=== PATIENT | female | born 1950 | race Caucasian/White ===

== ENCOUNTER → 2017-12-18 08:03 | Outpatient (CLI) | payer MEDICARE, OTHER, SELFPAY ==
--- NOTE | 2017-12-18 | DI.MG.S_ITS ---
BILATERAL DIGITAL SCREENING MAMMOGRAM 3D/2D WITH CAD: 12/18/2017 CLINICAL: Routine screening. Family history of breast cancer. Comparison is made to exams dated: 12/03/2016 mammogram, 10/27/2014 mammogram, and 11/30/2015 mammogram - [facility]. There are scattered fibroglandular elements in both breasts. Current study was also evaluated with a Computer Aided Detection (CAD) system. No significant masses, calcifications, or other findings are seen in either breast. There has been no significant interval change. IMPRESSION: NEGATIVE There is no mammographic evidence of malignancy. A 1 year screening mammogram is recommended. This exam was interpreted at Station ID: [id number]. NOTE: For mammograms, a report in lay terms will be sent to the patient. Approximately 15% of breast malignancies will not be visualized mammographically. In the management of a palpable breast mass, a negative mammogram must not discourage biopsy of a clinically suspicious lesion. Electronically Signed By: Best velasquez/kristopher:12/18/2017 13:17:35 letter sent: Normal Exam ACR BI-RADS Category 1: Negative 3341F
== END ==
PROVIDERS: Family Provider Physician Assistant; Visit Provider Physician Assistant
DX: Z12.31 Encounter for screening mammogram for malignant neoplasm of breast (principal); Z80.3 Family history of malignant neoplasm of breast
CPT/HCPCS: 77063; 77067

== ENCOUNTER 2018-02-07 09:51 | Emergency (ER) | payer MEDICARE, OTHER, SELFPAY ==
[2018-02-07 10:00] VITALS: BP 135/79; PULSE 57; RESP 16; TEMP 36.4; O2SAT 98; BMI 32.0
--- NOTE | 2018-02-07 10:31 | DI.RAD.S_ITS ---
PROCEDURE: XR CHEST 2V INDICATIONS: epigastric pain TECHNIQUE: 2 views of the chest were acquired. COMPARISON: [facility], , CHEST 2 VIEW, 01/30/2013, 9:35. FINDINGS: Surgical changes and devices: None. Lungs and pleura: No pleural effusions or pneumothorax. Lungs are clear. Mediastinum: Mediastinal contours are normal. Heart size is normal. Bones and chest wall: No suspicious bony abnormalities. Soft tissues appear unremarkable. IMPRESSION: No acute pulmonary process. Dictated by: Raeann Aguero M.D. on 02/07/2018 at 11:09 Approved by: Raeann Aguero M.D. on 02/07/2018 at 11:11
[2018-02-07] MEDS: SUCRALFATE 1 GM/10 ML ORAL SUSP PO (11:04)
[2018-02-07 11:06] VITALS: BP 126/76; PULSE 54; RESP 14; O2SAT 94
[2018-02-07 11:36] LABS: Add Manual Diff / Slide Review NO; Eosinophils Percent Auto 4.6 % (2-4); Hematocrit 40.7 % (36-46); Hemoglobin 13.6 g/dL (12.0-16.0); Lymphocytes Percent Auto 30.4 % (25-40); Mean Corpuscular HGB Conc 33.5 % (30-36); Mean Corpuscular Volume 92.5 fL (80-100); Neutrophils Absolute Auto 2700 /uL (3000-5900); Platelet Count 229 X10^3/uL (150-400); Red Cell Distribution Width 13.3 % (11.6-14.8)
[2018-02-07 11:47] VITALS: BP 127/76; PULSE 55; RESP 18; O2SAT 97
[2018-02-07 11:49] LABS: INR 1.1 (0.9-1.3); Prothrombin Time 12.1 SECONDS (10.1-12.7)
[2018-02-07 12:00] VITALS: BP 119/59; PULSE 55; RESP 16; O2SAT 97
[2018-02-07 12:05] LABS: Alanine Aminotransferase 33 IU/L (9-52); Albumin 4.2 g/dL (3.5-5.0); Albumin Globulin Ratio 1.4 (1.0-2.8); Alkaline Phosphatase 71 U/L (38-126); Aspartate Aminotransferase 32 IU/L (14-36); BUN Creatinine Ratio 27.1 (6-22); Bilirubin Total 0.8 mg/dL (0.2-1.3); Blood Urea Nitrogen 19 mg/dL (7-17); Calcium 9.7 mg/dL (8.4-10.2); Carbon Dioxide 29 mmol/L (22-32); Chloride 103 mmol/L (98-107); Estimated Glomerular Filt Rate > 60.0 mL/min (>60); Globulin 3.1 g/dL (1.7-4.1); Glucose 99 mg/dL (80-110); HEMOLYSIS < 15 (0-50); Potassium 4.6 mmol/L (3.4-5.1); Sodium 141 mmol/L (137-145); Total Protein 7.3 g/dL (6.3-8.2)
[2018-02-07 12:53] LABS: Lipase 67 U/L (23-300)
[2018-02-07 13:08] LABS: Troponin I < 0.012 ng/mL (0.01-0.034)
[2018-02-07 13:26] VITALS: BP 124/64; PULSE 55; RESP 16
--- NOTE | 2018-02-07 13:56 | ED_ITS ---
HPI - Abdominal Pain General Chief Complaint: Abdominal Pain Stated Complaint: POSSIBLE BLEEDING ULCER Time Seen by Provider: 02/07/18 09:58 History of Present Illness HPI narrative: HPI 67-year-old female with a history of a bleeding ulcer presents for evaluation of several weeks of epigastric discomfort that is transiently responsive to antacids and has been accompanied by 3 days of dark stools. Denies chest pain, shortness breath, fevers, chills. Unable to identify further provoking or relieving factors. Denies a history of DVT, PE. M/S/F/SocHx notable for: please see HPI; remainder reviewed with patient and in chart. ROS: Negative constitutional, eye, cardiovascular, pulmonary, GI, , MSK, skin , neurologic, psychiatric, endocrine unless noted in the HPI. Exam Gen: Pleasant, non-toxic appearing, resting comfortably. HEENT: NC, AT, PEERL, EOMI. Resp: Clear to auscultation bilaterally, normal work of breathing, no accessory muscle usage. Card: Regular rate and rhythm with no murmurs, rubs, or gallops, extremities warm and well perfused. GI: moderate epigastric tenderness to palpation, otherwise nontender to palpation throughout all quadrants, no focal tenderness at McBurney's point, negative Brower's sign, non-distended, no rebound or guarding. : No suprapubic tenderness to palpation. MSK: No visible deformities, strength and tone without visually appreciable deficit. Skin: Normal color with no visible lesions. Neuro: AO x 3, no facial asymmetry, vision and hearing WNL. Psych: Mood and affect appropriate. Labs / Imaging: WBC 5.0, Hb 13.6, Na 141, K 4.6, BUN 19, creatinine 0.7, BUN/creatinine 27.1, total bilirubin 0.8, AST 32, ALT 33, ALP 71, lipase 67, troponin <0.012, PT/INR 1.1, FOBT positive CXR: no acute cardiopulmonary disease process. EKG: SR 53 bpm, no ST segment elevations or depressions, no LBBB. MDM Previous chart, nursing note, labs, imaging, and vitals reviewed. A: 67-year-old female with a history of a bleeding ulcer presents for evaluation of several weeks of epigastric discomfort that is transiently responsive to and acids and has been accompanied by 3 days of dark stools. DDx: gastric ulcer, GERD, gastritis, duodenal ulcer, ACS, unstable angina, PE, anemia. Evaluation: strongly suspect recurrent ulcer given the history of prior ulcer, several weeks of epigastric discomfort with partial relief with antacids, positive FOBT, and unremarkable EKG, chest x-ray, and troponin. Lipase also WNL. Patient without evidence of coagulopathy or anemia. Placed on ranitidine and Maalox and discharge with PCP follow-up recommended. ED Course: ranitidine and sucralfate given for symptomatic treatment. Impression: suspected ulcer (please reference below for remainder of encounter information) Related Data Home Medications Medication Instructions Recorded Confirmed VITAMIN D (Vitamin D3) 1,000 unit PO QDAY #0 11/23/10 Fish Oil (#SUPER EPA-300) 1,000 mg PO BID #0 11/29/10 Allergies Allergy/AdvReac Type Severity Reaction Status Date / Time No Known Allergies Allergy Uncoded 02/07/18 10:00 Exam Initial Vital Signs Initial Vital Signs: Vital Signs Temperature 97.6 F 02/07/18 10:00 Pulse Rate 57 L 02/07/18 10:00 Respiratory Rate 16 02/07/18 10:00 Blood Pressure 135/79 H 02/07/18 10:00 Pulse Oximetry 98 02/07/18 10:00 Course Orders Ordered: ED Orders 02/07/18 10:31 XR chest 2V Stat 02/07/18 10:32 EKG-12 Lead Stat 02/07/18 11:20 Comprehensive Metabolic Panel Stat Lipase Stat Prothrombin Time INR Stat Troponin I Stat 02/07/18 11:22 Complete Blood Count AUTO DIFF Stat Sucralfate (Carafate) 1 gm PO ACHS [facility] Last Admin: 02/07/18 11:04 Dose: 1 gm Discontinued Medications Ranitidine HCl (Zantac) 300 mg PO NOW ONE Stop: 02/07/18 10:31 Last Admin: 02/07/18 11:04 Dose: 300 mg Vital Signs - 8 hr 02/07/18 10:00 02/07/18 11:06 02/07/18 11:47 Temperature 97.6 F Pulse Rate 57 L 54 L 55 L Respiratory Rate 16 14 18 Blood Pressure 135/79 H Blood Pressure [Right Arm] 126/76 H 127/76 H Pulse Oximetry 98 94 97 02/07/18 12:00 02/07/18 13:26 Temperature Pulse Rate 55 L 55 L Respiratory Rate 16 16 Blood Pressure Blood Pressure [Right Arm] 119/59 L 124/64 H Pulse Oximetry 97 MDM - Abdominal Pain Lab Data Result diagrams: 02/07/18 11:22 02/07/18 11:20 Lab Results 02/07/18 02/07/18 02/07/18 Range/Units 11:20 11:20 11:20 WBC (4.5-11.0) X10^3/uL RBC (4.0-5.2) X10^6/uL Hgb (12.0-16.0) g/dL Hct (36-46) % MCV (80-100) fL MCH (26-34) PG MCHC (30-36) % RDW (11.6-14.8) % Plt Count (150-400) X10^3/uL Neut % (Auto) (50-75) % Lymph % (Auto) (25-40) % Rogers % (Auto) (3-14) % Eos % (Auto) (2-4) % Baso % (Auto) (0-2) % Neut # (Auto) (2552-0512) /uL PT 12.1 (10.1-12.7) SECONDS INR 1.1 (0.9-1.3) Sodium 141 (137-145) mmol/L Potassium 4.6 (3.4-5.1) mmol/L Chloride 103 (98-107) mmol/L Carbon Dioxide 29 (22-32) mmol/L BUN 19 H (7-17) mg/dL Creatinine 0.70 (0.52-1.04) mg/dL Estimated GFR > 60.0 (>60) mL/min BUN/Creatinine Ratio 27.1 H (6-22) Glucose 99 (80-110) mg/dL Calcium 9.7 (8.4-10.2) mg/dL Total Bilirubin 0.8 (0.2-1.3) mg/dL AST 32 (14-36) IU/L ALT 33 (9-52) IU/L Alkaline Phosphatase 71 (38-126) U/L Troponin I < 0.012 (0.01-0.034) ng/mL Total Protein 7.3 (6.3-8.2) g/dL Albumin 4.2 (3.5-5.0) g/dL Globulin 3.1 (1.7-4.1) g/dL Albumin/Globulin Ratio 1.4 (1.0-2.8) Lipase 67 (23-300) U/L / Range/Units 11:22 WBC 5.0 (4.5-11.0) X10^3/uL RBC 4.40 (4.0-5.2) X10^6/uL Hgb 13.6 (12.0-16.0) g/dL Hct 40.7 (36-46) % MCV 92.5 (80-100) fL MCH 31.0 (26-34) PG MCHC 33.5 (30-36) % RDW 13.3 (11.6-14.8) % Plt Count 229 (150-400) X10^3/uL Neut % (Auto) 54.0 (50-75) % Lymph % (Auto) 30.4 (25-40) % Rogers % (Auto) 10.0 (3-14) % Eos % (Auto) 4.6 H (2-4) % Baso % (Auto) 1.0 (0-2) % Neut # (Auto) 2700 L (8376-9135) /uL PT (10.1-12.7) SECONDS INR (0.9-1.3) Sodium (137-145) mmol/L Potassium (3.4-5.1) mmol/L Chloride (98-107) mmol/L Carbon Dioxide (22-32) mmol/L BUN (7-17) mg/dL Creatinine (0.52-1.04) mg/dL Estimated GFR (>60) mL/min BUN/Creatinine Ratio (6-22) Glucose (80-110) mg/dL Calcium (8.4-10.2) mg/dL Total Bilirubin (0.2-1.3) mg/dL AST (14-36) IU/L ALT (9-52) IU/L Alkaline Phosphatase (38-126) U/L Troponin I (0.01-0.034) ng/mL Total Protein (6.3-8.2) g/dL Albumin (3.5-5.0) g/dL Globulin (1.7-4.1) g/dL Albumin/Globulin Ratio (1.0-2.8) Lipase (23-300) U/L Point of care testing: Point of Care Testing Stool Occult Blood Positive Discharge Plan Departure Prescriptions: No Action VITAMIN D (Vitamin D3) 1,000 unit PO QDAY Qty: 0 RF: 0 Fish Oil (#SUPER EPA-300) 1,000 mg PO BID Qty: 0 RF: 0
[2018-02-07 14:29] VITALS: BP 132/76; PULSE 92; RESP 14; O2SAT 98
== END 2018-02-07 14:32 | disposition home or self-care (01) ==
PROVIDERS: Emergency Provider Emergency Medicine; Family Provider Physician Assistant; PCP Physician Assistant
DX: R10.9 Unspecified abdominal pain (principal)
CPT/HCPCS: 36415; 71046; 80053; 82272; 83690; 84484; 85025; 85610; 93005; 99284; 99285

== ENCOUNTER → 2018-10-06 10:04 | Outpatient (CLI) | payer MEDICARE, OTHER, SELFPAY ==
--- NOTE | 2018-10-06 | DI.RAD.S_ITS ---
PROCEDURE: XR TOE RT MIN 2V INDICATIONS: R GREAT TOE PAIN, SWELLING TECHNIQUE: 2 views of the right toe(s) acquired. COMPARISON: None. FINDINGS: Bones: Comminuted fracture involving the proximal phalanx of the great toe. There is extension to the proximal articular surface although minimal articular surface incongruity. Soft tissues: No suspicious soft tissue densities. IMPRESSION: Comminuted fracture involving the great toe proximal phalanx, with intra-articular extension as above. Dictated by: Eduar Cordero M.D. on 10/06/2018 at 12:40 Approved by: Eduar Cordero M.D. on 10/06/2018 at 12:42
== END ==
PROVIDERS: PCP Internal Medicine; Visit Provider Internal Medicine
DX: S92.411A Displaced fracture of proximal phalanx of right great toe, initial encounter for closed fracture (principal); M79.674 Pain in right toe(s)
CPT/HCPCS: 73660

== ENCOUNTER → 2018-10-21 13:14 | Outpatient (CLI) | payer MEDICARE, OTHER, SELFPAY ==
[2018-10-21 14:52] LABS: Free T4, Direct Thyroxine 1.75 ng/dL (0.78-2.19)
[2018-10-21 16:53] LABS: Alanine Aminotransferase 34 IU/L (9-52); Albumin 4.2 g/dL (3.5-5.0); Albumin Globulin Ratio 1.4 (1.0-2.8); Alkaline Phosphatase 66 U/L (38-126); Aspartate Aminotransferase 27 IU/L (14-36); Bilirubin Total 0.5 mg/dL (0.2-1.3); Blood Urea Nitrogen 27 mg/dL (7-17); Calcium 9.8 mg/dL (8.4-10.2); Carbon Dioxide 28 mmol/L (22-32); Chloride 101 mmol/L (98-107); Cholesterol 204 mg/dL (140-199); Estimated Glomerular Filt Rate > 60.0 mL/min (>60); Globulin 2.9 g/dL (1.7-4.1); Glucose 87 mg/dL (80-110); HDL Cholesterol 51 mg/dL (40-60); HEMOLYSIS < 15 (0-50); LDL Cholesterol Calculated 123 mg/dL (<100); Potassium 4.8 mmol/L (3.4-5.1); Sodium 139 mmol/L (137-145); Total Protein 7.1 g/dL (6.3-8.2); Triglycerides 148 mg/dL (35-150)
[2018-10-23 16:04] LABS: Triiodothyronine T3 Total 75 ng/dL (76-181)
== END ==
PROVIDERS: PCP Internal Medicine; Visit Provider Internal Medicine
DX: E78.5 Hyperlipidemia, unspecified (principal); E03.9 Hypothyroidism, unspecified
CPT/HCPCS: 36415; 80053; 80061; 84439; 84443; 84480

== ENCOUNTER → 2018-11-03 14:25 | Outpatient (CLI) | payer MEDICARE, OTHER, SELFPAY ==
[2018-11-03 15:51] LABS: BUN Creatinine Ratio 33.8 (6-22); Blood Urea Nitrogen 27 mg/dL (7-17); Calcium 9.6 mg/dL (8.4-10.2); Carbon Dioxide 27 mmol/L (22-32); Chloride 105 mmol/L (98-107); Estimated Glomerular Filt Rate > 60.0 mL/min (>60); Glucose 97 mg/dL (80-110); HEMOLYSIS < 15 (0-50); Potassium 4.5 mmol/L (3.4-5.1); Sodium 139 mmol/L (137-145)
== END ==
PROVIDERS: PCP Internal Medicine; Visit Provider Physician Assistant Medical
DX: I48.0 Paroxysmal atrial fibrillation (principal)
CPT/HCPCS: 36415; 80048; 83735

== ENCOUNTER → 2018-12-19 12:24 | Outpatient (CLI) | payer MEDICARE, OTHER, SELFPAY ==
--- NOTE | 2018-12-19 | DI.MG.S_ITS ---
BILATERAL DIGITAL SCREENING MAMMOGRAM 3D/2D WITH CAD: 12/19/2018 CLINICAL: Routine screening. Family history of breast cancer. Comparison is made to exams dated: 12/18/2017 mammogram, 12/03/2016 mammogram, and 11/30/2015 mammogram - [facility]. There are scattered fibroglandular elements in both breasts. Current study was also evaluated with a Computer Aided Detection (CAD) system. There are benign calcifications in both breasts. No significant masses, calcifications, or other findings are seen in either breast. There has been no significant interval change. IMPRESSION: There is no mammographic evidence of malignancy. A 1 year screening mammogram is recommended. This exam was interpreted at Station ID: [id number]. NOTE: For mammograms, a report in lay terms will be sent to the patient. Approximately 15% of breast malignancies will not be visualized mammographically. In the management of a palpable breast mass, a negative mammogram must not discourage biopsy of a clinically suspicious lesion. Electronically Signed By: Isrrael schwartz/kristopher:12/19/2018 14:07:41 letter sent: Normal Exam ACR BI-RADS Category 2: Benign Finding(s) 3342F
== END ==
PROVIDERS: PCP Internal Medicine; Visit Provider Internal Medicine
DX: Z12.31 Encounter for screening mammogram for malignant neoplasm of breast (principal); Z80.3 Family history of malignant neoplasm of breast
CPT/HCPCS: 77063; 77067

== ENCOUNTER 2019-08-07 21:31 | Emergency (ER) | payer MEDICARE, OTHER, SELFPAY ==
[2019-08-07] VITALS (7 sets, daily range): BP systolic 122–149; BP diastolic 72–80; PULSE 52–55; RESP 18–20; O2SAT 90–100
--- NOTE | 2019-08-07 21:40 | DI.RAD.S_ITS ---
PROCEDURE: XR CHEST 1V INDICATIONS: chest pain TECHNIQUE: One view of the chest was acquired. COMPARISON: [facility], CR, XR CHEST 2V, 02/07/2018, 10:11. FINDINGS: Surgical changes and devices: A left shoulder prosthesis is noted. Lungs and pleura: Lungs are clear. No pleural effusions or pneumothorax. Mediastinum: Mediastinal contours appear normal. Heart size is normal. Bones and chest wall: No suspicious bony lesions. Overlying soft tissues appear unremarkable. IMPRESSION: 1. No acute cardiopulmonary disease. Dictated by: Aaron Mcmanus M.D. on 08/07/2019 at 22:03 Approved by: Aaron Mcmanus M.D. on 08/07/2019 at 22:04
[2019-08-07] MEDS: NITROGLYCERIN 0.4 MG SL TAB SL ×2 (21:47→21:59)
[2019-08-07] MEDS: ASPIRIN 81 MG CHEW TAB 162 MG PO (21:54)
[2019-08-07] MEDS: SODIUM CHLORIDE 0.9% 1,000 ML 150 ML IV (21:54)
--- NOTE | 2019-08-07 21:57 | ED_ITS ---
HPI - Chest Pain General Chief Complaint: Chest Pain Stated Complaint: CHEST PRESSURE Time Seen by Provider: 08/07/19 21:35 Source: patient Mode of arrival: Ambulatory Limitations: no limitations History of Present Illness HPI narrative: 69-year-old femaleNonsmoker with history of hypothyroid and AFib presents with her and a chief complaint of 5/10 retrosternal chest pressure with radiation to right shoulder, down right arm and right jaw which started while at rest about 90 minutes prior to her arrival. She denies provocation or palliation of her symptoms. She denies associated cardiac equivalent such as dizziness, lightheadedness nor vomiting or diaphoresis though she does feel a bit nauseated and weak. She denies any history of the same. She hasn't had any provocative testing such as a stress test in quite some time. On arrival her pain is 5/10. She took a pair of baby aspirin this morning. She did recently have a surgery on her left shoulder. MD complaint: chest pain Onset (ago): hour(s) Duration: constant Onset: during rest Pain location: substernal Severity: moderate Severity scale (1-10): 5 Quality: aching and heaviness Pain radiation: RUE, neck and jaw/teeth Relieving factors: nothing Exacerbating factors: nothing Context: recent surgery Associated symptoms: nausea Treatments prior to arrival chest pain: none Related Data On Oral Contraceptives: No Home Medications Medication Instructions Recorded Confirmed levothyroxine 100 mcg capsule 100 mcg PO DAILY 03/03/19 08/07/19 pantoprazole 40 mg tablet,delayed 40 mg PO BID 03/03/19 08/07/19 release sotalol 80 mg tablet 80 mg PO BID 03/03/19 08/07/19 aspirin [Aspirin Childrens] 162 mg PO BID 08/07/19 08/07/19 Allergies Allergy/AdvReac Type Severity Reaction Status Date / Time No Known Drug Allergies Allergy Verified 08/07/19 22:09 Review of Systems Constitutional Constitutional: Denies chills, Denies fatigue, Denies fever(s), Denies frequent falls, Denies lethargy and Denies weakness Eyes Eyes: Denies change in vision, Denies eye discharge, Denies irritation and Denies loss of vision ENT Ears, Nose, Mouth, and Throat: Denies change in voice, Denies dizziness, Denies neck pain, Denies sore throat and Denies throat swelling Cardiovascular Cardiovascular: Reports chest pain, Denies irregular heart rhythm, Denies lightheadedness, Denies palpitations, Denies dyspnea, Denies dyspnea on exertion and Denies orthopnea Respiratory Respiratory: Denies cough, Denies dyspnea, Denies dyspnea on exertion and Denies wheezing Gastrointestinal Gastrointestinal: Denies abdominal pain, Denies change in bowel habits, Denies diarrhea, Denies nausea and Denies vomiting Genitourinary Genitourinary: Denies hematuria, Denies flank pain, Denies urinary incontinence and Denies urinary urgency Musculoskeletal Musculoskeletal: Denies back pain, Denies muscle weakness, Denies neck pain, Denies numbness and Denies tingling Integumentary/Breasts Skin/Breast: Denies pruritus, Denies erythema, Denies rash and Denies wounds Neurologic Neurologic: Denies behavioral changes, Denies confusion, Denies dizziness, Denies frequent falls, Denies loss of vision, Denies numbness, Denies tingling and Denies weakness Psychiatric Psychiatric: Denies anxiety, Denies behavioral changes, Denies confusion, Denies depression, Denies homicidal ideation and Denies suicidal ideation Endocrine Endocrine: Denies fatigue, Denies flushing and Denies palpitations Hematologic/Lymphatic Hematologic/Lymphatic: Denies easy bruising Allergic/Immunologic Allergic/Immunologic: Denies urticaria, Denies throat swelling and Denies wheezing Patient History Medical History Breathing-related sleep disorder (Chronic) Fracture of neck of humerus (Acute) GI bleed (Acute) Left leg pain (Acute) Social History Smoking Status: Never smoker Smoking Status: Never smoker Substance Use Type: does not use Exam Narrative Exam Narrative: GENERAL: [69] year old patient appears stated age. Well- nourished, well-developed patient, in mild distress. HEAD: Atraumatic. Normocephalic. EYES: Pupils equal round and reactive. Extraocular motions intact. No scleral icterus. No injection or drainage. ENT: Nose without bleeding, purulent drainage. Throat without erythema, tonsillar hypertrophy or exudate. Airway patent. NECK: Trachea midline. Non tender CARDIOVASCULAR: Regular rate and rhythm without murmurs, gallops, or rubs. No reproducible pain RESPIRATORY: Clear to auscultation. Breath sounds equal bilaterally. No wheezes, rales, or rhonchi. GASTROINTESTINAL: Abdomen soft, non-tender, nondistended. EXTREMITIES: No edema or joint tenderness. BACK: Nontender without deformity or crepitance. No flank tenderness. NEURO: AOx3. SKIN: No rash or erythema of visible areas Initial Vital Signs Initial Vital Signs: Vital Signs Pulse Rate 54 L 08/07/19 21:35 Respiratory Rate 20 08/07/19 21:35 Blood Pressure 149/75 H 08/07/19 21:35 Pulse Oximetry 99 08/07/19 21:35 Course Orders Ordered: ED Orders 08/07/19 21:40 XR chest 1V Stat EKG-12 Lead Stat 08/07/19 21:45 B Type Natriuretic Peptide Stat Complete Blood Count AUTO DIFF Stat Comprehensive Metabolic Panel Stat D Dimer Stat Lipase Stat Partial Thromboplastin Time Stat Troponin & CK Cardiac Panel Stat 08/07/19 21:58 EKG-12 Lead Stat 08/07/19 23:00 PTT [Partial Thromboplastin Time] Q6H 08/08/19 05:00 Hemoglobin and Hematocrit DAILY PTT [Partial Thromboplastin Time] Q6H 08/08/19 11:00 PTT [Partial Thromboplastin Time] Q6H 08/08/19 17:00 PTT [Partial Thromboplastin Time] Q6H Sodium Chloride (Normal Saline 0.9%) 1,000 mls @ 150 mls/hr IV CONT HERLINDA Last Admin: 08/07/19 21:54 Dose: 150 mls/hr Documented by: TERESA Heparin Sodium/Dextrose (Heparin Drip) 25,000 unit in 500 mls @ 20 mls/hr IV CONT HERLINDA; Protocol Last Admin: 08/07/19 23:14 Dose: 1,000 units/hr, 20 mls/hr Documented by: TERESA Nitroglycerin (Nitrostat) 0.4 mg SL [id number] PRN PRN Reason: Chest Pain Last Admin: 08/07/19 21:59 Dose: 0.4 mg Documented by: Admin: 08/07/19 21:47 Dose: 0.4 mg Documented by: TERESA Discontinued Medications Aspirin (Aspirin Chew) 162 mg PO NOW ONE Stop: 08/07/19 21:41 Last Admin: 08/07/19 21:54 Dose: 162 mg Documented by: TERESA Atorvastatin Calcium (Lipitor) 40 mg PO NOW ONE Stop: 08/07/19 22:54 Last Admin: 08/07/19 23:25 Dose: 40 mg Documented by: TERESA Clopidogrel Bisulfate (Plavix) 300 mg PO NOW ONE Stop: 08/07/19 22:54 Last Admin: 08/07/19 23:11 Dose: 300 mg Documented by: TERESA Heparin Sodium (Porcine) (Heparin) 5,000 unit IV NOW ONE Stop: 08/07/19 22:54 Last Admin: 08/07/19 23:09 Dose: 5,000 unit Documented by: TERESA Reevaluation(s) Reevaluation #1: Patient pain free after 2nd nitro Consultations Consultation #1: call to cardio upon receipt of Troponin. Recommends transfer, heparin bolus/drip, plavix 300 (asks that hospitalist continue her on 75 daily), and statin. hospitalist happy to accept Time: 22:45 Vital Signs Vital signs: Vital Signs - 8 hr 08/07/19 21:35 08/07/19 21:47 08/07/19 21:59 Pulse Rate 54 L 55 L 52 L Respiratory Rate 20 Blood Pressure 149/75 H 149/75 H 143/80 H Blood Pressure [Right Arm] Pulse Oximetry 99 08/07/19 22:07 08/07/19 22:08 08/07/19 22:30 Pulse Rate 54 L 55 L Respiratory Rate 18 18 Blood Pressure Blood Pressure [Right Arm] 124/72 122/72 Pulse Oximetry 90 L 95 100 08/07/19 23:43 Pulse Rate 55 L Respiratory Rate 20 Blood Pressure Blood Pressure [Right Arm] 131/74 Pulse Oximetry 100 MDM - Chest Pain Lab Data Result diagrams: 08/07/19 21:45 08/07/19 21:45 Labs: Lab Results 08/07/19 08/07/19 08/07/19 Range/Units 21:45 21:45 21:45 WBC 8.1 (4.5-11.0) X10^3/uL RBC 4.20 (4.0-5.2) X10^6/uL Hgb 12.9 (12.0-16.0) g/dL Hct 38.6 (36-46) % MCV 92.1 (80-100) fL MCH 30.9 (26-34) PG MCHC 33.5 (30-36) % RDW 13.7 (11.6-14.8) % Plt Count 301 (150-400) X10^3/uL Neut % (Auto) 55.4 (50-75) % Lymph % (Auto) 30.4 (25-40) % Addison % (Auto) 11.4 (3-14) % Eos % (Auto) 1.9 L (2-4) % Baso % (Auto) 0.9 (0-2) % Neut # (Auto) 4500 (7684-6889) /uL Lymph # (Auto) 2500 (4296-3246) /uL Addison # (Auto) 900 (0-900) /uL Eos # (Auto) 200 (0-450) /uL Baso # (Auto) 100 (0-100) /uL APTT (26.4-36.2) SECONDS D-Dimer 263 H (<230) ng/mL Sodium 136 L (137-145) mmol/L Potassium 3.9 (3.4-5.1) mmol/L Chloride 101 (98-107) mmol/L Carbon Dioxide 29 (22-32) mmol/L BUN 20 H (7-17) mg/dL Creatinine 0.70 (0.52-1.04) mg/dL Estimated GFR > 60.0 (>60) mL/min BUN/Creatinine Ratio 28.6 H (6-22) Glucose 108 (80-110) mg/dL Calcium 9.6 (8.4-10.2) mg/dL Total Bilirubin 0.4 (0.2-1.3) mg/dL AST 55 H (14-36) IU/L ALT 18 (<35) IU/L Alkaline Phosphatase 66 (38-126) U/L Total Creatine Kinase 328 H (30-135) U/L CK-MB (CK-2) 25.90 H (<2.37) ng/mL CK-MB (CK-2) Rel Index 7.9 H* (1.5-5.0) % Troponin I 11.900 H* (0.01-0.034) ng/mL B-Natriuretic Peptide 106 H (<100) Total Protein 7.2 (6.3-8.2) g/dL Albumin 4.0 (3.5-5.0) g/dL Globulin 3.2 (1.7-4.1) g/dL Albumin/Globulin Ratio 1.3 (1.0-2.8) Lipase 93 (23-300) U/L 08/07/19 Range/Units 21:45 WBC (4.5-11.0) X10^3/uL RBC (4.0-5.2) X10^6/uL Hgb (12.0-16.0) g/dL Hct (36-46) % MCV (80-100) fL MCH (26-34) PG MCHC (30-36) % RDW (11.6-14.8) % Plt Count (150-400) X10^3/uL Neut % (Auto) (50-75) % Lymph % (Auto) (25-40) % Addison % (Auto) (3-14) % Eos % (Auto) (2-4) % Baso % (Auto) (0-2) % Neut # (Auto) (2228-4715) /uL Lymph # (Auto) (7681-3004) /uL Addison # (Auto) (0-900) /uL Eos # (Auto) (0-450) /uL Baso # (Auto) (0-100) /uL APTT 28 (26.4-36.2) SECONDS D-Dimer (<230) ng/mL Sodium (137-145) mmol/L Potassium (3.4-5.1) mmol/L Chloride (98-107) mmol/L Carbon Dioxide (22-32) mmol/L BUN (7-17) mg/dL Creatinine (0.52-1.04) mg/dL Estimated GFR (>60) mL/min BUN/Creatinine Ratio (6-22) Glucose (80-110) mg/dL Calcium (8.4-10.2) mg/dL Total Bilirubin (0.2-1.3) mg/dL AST (14-36) IU/L ALT (<35) IU/L Alkaline Phosphatase (38-126) U/L Total Creatine Kinase (30-135) U/L CK-MB (CK-2) (<2.37) ng/mL CK-MB (CK-2) Rel Index (1.5-5.0) % Troponin I (0.01-0.034) ng/mL B-Natriuretic Peptide (<100) Total Protein (6.3-8.2) g/dL Albumin (3.5-5.0) g/dL Globulin (1.7-4.1) g/dL Albumin/Globulin Ratio (1.0-2.8) Lipase (23-300) U/L Imaging Data Chest x-ray: Radiologist's Impression: [address] [address] XRay Report Signed Patient: Jacinta FloresnMR#: [id number] : 8Acct:[id number] Age/Sex: 69 / FDate of Service: 08/07/19 Loc: ED Accession Number: [id number] Procedure: XR chest 1V Ordering Provider: Eligio Mariee D.O. PROCEDURE: XR CHEST 1V INDICATIONS: chest pain TECHNIQUE: One view of the chest was acquired. COMPARISON: [facility], , XR CHEST 2V, 02/07/2018, 10:11. FINDINGS: Surgical changes and devices: A left shoulder prosthesis is noted. Lungs and pleura: Lungs are clear. No pleural effusions or pneumothorax. Mediastinum: Mediastinal contours appear normal. Heart size is normal. Bones and chest wall: No suspicious bony lesions. Overlying soft tissues appear unremarkable. IMPRESSION: 1. No acute cardiopulmonary disease. Dictated by: Aaron Mcmanus M.D. on 08/07/2019 at 22:03 Approved by: Aaron Mcmanus M.D. on 08/07/2019 at 22:04 ECG Data Attestation: I personally reviewed and interpreted this ECG as follows: Interpretation: Sinus bradycardia, rate of 52, nonspecific T-wave inversions. No ST segmental elevations or depressions EKG #2 - unchanged EKG # 3 - unchanged Critical Care Time Critical Care Time Critical Care Time: Yes Total Critical Care Time: 30 Attestation: The high probability of a clinically significant, sudden or life threatening de terioration of the [CV] system(s) required my full and direct attention, intervention and personal management. The aggregate critical care time was [30] minutes. This time is in addition to time spent performing reported procedures but includes the following: [x] Data Review and interpretation [x] Patient assessment and monitoring of vital signs [x] Documentation [x] Medication orders and management Discharge Plan Departure Patient Disposition: Xfer [facility] Clinical Impression: Acute non-ST elevation myocardial infarction (NSTEMI) Prescriptions: No Action aspirin [Aspirin Childrens] 81 mg Tablet,Chewable 162 mg PO BID RF: 0 sotalol 80 mg tablet 80 mg PO BID RF: 0 levothyroxine 100 mcg capsule 100 mcg PO DAILY RF: 0 pantoprazole 40 mg tablet,delayed release (DR/EC) 40 mg PO BID RF: 0 Referrals: aHrris John MD [Primary Care Provider] -
[2019-08-07 22:00] LABS: Add Manual Diff / Slide Review NO; Basophils Absolute Auto 100 /uL (0-100); Basophils Percent Auto 0.9 % (0-2); Eosinophils Absolute Auto 200 /uL (0-450); Eosinophils Percent Auto 1.9 % (2-4); Hematocrit 38.6 % (36-46); Hemoglobin 12.9 g/dL (12.0-16.0); Lymphocytes Absolute Auto 2500 /uL (1100-4500); Lymphocytes Percent Auto 30.4 % (25-40); Mean Corpuscular HGB Conc 33.5 % (30-36); Mean Corpuscular Hemoglobin 30.9 PG (26-34); Mean Corpuscular Volume 92.1 fL (80-100); Monocytes Absolute Auto 900 /uL (0-900); Monocytes Percent Auto 11.4 % (3-14); Neutrophils Absolute Auto 4500 /uL (1500-7000); Neutrophils Percent Auto 55.4 % (50-75); Platelet Count 301 X10^3/uL (150-400); Red Cell Distribution Width 13.7 % (11.6-14.8); White Blood Cell Count 8.1 X10^3/uL (4.5-11.0)
[2019-08-07 22:06] LABS: Alanine Aminotransferase 18 IU/L (<35); Albumin Globulin Ratio 1.3 (1.0-2.8); Alkaline Phosphatase 66 U/L (38-126); Aspartate Aminotransferase 55 IU/L (14-36); BUN Creatinine Ratio 28.6 (6-22); Bilirubin Total 0.4 mg/dL (0.2-1.3); Blood Urea Nitrogen 20 mg/dL (7-17); Calcium 9.6 mg/dL (8.4-10.2); Carbon Dioxide 29 mmol/L (22-32); Chloride 101 mmol/L (98-107); Creatine Kinase 328 U/L (30-135); Estimated Glomerular Filt Rate > 60.0 mL/min (>60); Globulin 3.2 g/dL (1.7-4.1); Glucose 108 mg/dL (80-110); HEMOLYSIS < 15 (0-50); Lipase 93 U/L (23-300); Potassium 3.9 mmol/L (3.4-5.1); Sodium 136 mmol/L (137-145); Total Protein 7.2 g/dL (6.3-8.2)
[2019-08-07 22:16] LABS: B Type Natriuretic Peptide 106 (<100)
[2019-08-07 22:30] LABS: D Dimer 263 ng/mL (<230)
[2019-08-07 22:49] LABS: CKMB % Relative Index 7.9 % (1.5-5.0)
[2019-08-07 23:08] LABS: PTT Partial Thromboplastin Tim 28 SECONDS (26.4-36.2)
[2019-08-07] MEDS: HEPARIN 5,000 UNIT/ML VIAL 5000 UNIT IV (23:09)
[2019-08-07] MEDS: CLOPIDOGREL 75 MG TABLET 300 MG PO (23:11)
[2019-08-07] MEDS: HEPARIN DRIP 25,000 UNIT/500 ML IV.SOLN 20 UNIT IV (23:14)
[2019-08-07] MEDS: ATORVASTATIN 20 MG TABLET 40 MG PO (23:25)
--- NOTE | 2019-08-08 00:51 | PC.NURSE ---
She transferred to [facility] pain free.
== END 2019-08-08 00:44 | disposition short-term general hospital (02) ==
PROVIDERS: Emergency Provider Emergency Medicine; PCP Internal Medicine
DX: I21.4 Non-ST elevation (NSTEMI) myocardial infarction (principal)
CPT/HCPCS: 36415; 71045; 80053; 82550; 82553; 83690; 83880; 84484; 85025; 85379; 85730; 93005; 96361; 96365; 96375; 99285; 99291; J1644

== ENCOUNTER → 2020-02-29 17:09 | Outpatient (CLI) | payer MEDICARE, OTHER, SELFPAY ==
--- NOTE | 2020-02-29 | DI.MG.S_ITS ---
BILATERAL DIGITAL SCREENING MAMMOGRAM 3D/2D WITH CAD: 02/29/2020 CLINICAL: Routine screening. Comparison is made to exams dated: 12/19/2018 mammogram, 12/18/2017 mammogram, and 12/03/2016 mammogram - [facility]. There are scattered fibroglandular elements in both breasts. Current study was also evaluated with a Computer Aided Detection (CAD) system. There are benign calcifications in both breasts. No significant masses, calcifications, or other findings are seen in either breast. There has been no significant interval change. IMPRESSION: BENIGN There is no mammographic evidence of malignancy. A 1 year screening mammogram is recommended. This exam was interpreted at Station ID: [id number]. NOTE: For mammograms, a report in lay terms will be sent to the patient. Approximately 15% of breast malignancies will not be visualized mammographically. In the management of a palpable breast mass, a negative mammogram must not discourage biopsy of a clinically suspicious lesion. Electronically Signed By: Juan Carlos Mccain M.D., jr/kristopher:03/01/2020 09:44:13 letter sent: Normal Exam ACR BI-RADS Category 2: Benign Finding(s) 3342F
== END ==
PROVIDERS: PCP Student in an Organized Health Care Education/Training Program; Referring Provider Internal Medicine; Visit Provider Internal Medicine
DX: Z12.31 Encounter for screening mammogram for malignant neoplasm of breast (principal)
CPT/HCPCS: 77063; 77067

== ENCOUNTER 2020-03-03 12:00 | Outpatient (RCR) | payer MEDICARE, OTHER, SELFPAY ==
--- NOTE | 2020-02-19 16:16 | PT.OIE ---
Current Diagnoses Unspecified abnormalities of gait and mobility (02/19/20) History of falling (02/19/20) Past Medical History (Last Reviewed 08/07/19 @ 22:51 by Eligio Mariee DO) Breathing-related sleep disorder (Chronic) Fracture of neck of humerus (Acute) GI bleed (Acute) Left leg pain (Acute) Visit Care Team Role Provider Type Ryanne Mcdaniel MD Attending Provider Physician Primary Care Provider Referring Provider Specialty: [facility] Address: [address] [place] [address], [facility] [place], [facility] Email: [email or web address] Physical Therapy Initial Evaluation PT-OP-A Visit Information Start: 02/19/20 15:52 Freq: Status: Active Protocol: Document 02/19/20 09:00 DCW (Rec: 02/19/20 16:16 DCW [id number]) Out-Patient Physical Therapy Visit Information Visit Information Visit Type Initial Evaluation Visit Start Time 09:00 Visit Stop Time 09:45 Total Visit Minutes 45 Visit Number 1 Number of INSPECTOR SCREEN PRINTING Visits 0 Evaluation Information Evaluation Date 02/19/20 PT-OP-B Current Condition Start: 02/19/20 15:52 Freq: Status: Active Protocol: Document 02/19/20 09:00 DCW (Rec: 02/19/20 16:16 DC [id number]) Current Condition History of Current Condition Onset Date a few months Current Complaints Instability, fatigue History of Current Condition Pt is a 69 year old female presenting with a complaint of recent decline in balance and stability. Pt notes that it is not extreme, but I'm noticing a difference. Pt feels like the quality of her gait has declines, as well as her confidence when ascending stairs, and some instability upon first rising. Prior Treatments and Tests Bilateral MARIZOL Right Partial knee replacement Left TSA PT-OP-C Subjective Start: 02/19/20 15:52 Freq: Status: Active Protocol: Document 02/19/20 09:00 DCW (Rec: 02/19/20 16:16 DCW [id number]) OP-PT Subjective Patient Comments Patient Comments I feel like I have to get my bearings whenever I stand up. Patient Questionnaires ABC- Activity Specific Balance Confidence Scale ABC Score 84.38% ABC Functional Impairment 1 to <20% Impaired (Score 81- 99) Dizziness Handicap Inventory DHI Score 26% DHI Functional Impairment 20 to 39% Impaired (Score 20- 39) PT-OP-D Balance Start: 02/19/20 15:52 Freq: Status: Active Protocol: Document 02/19/20 09:00 DCW (Rec: 02/19/20 16:16 [facility] [id number]) OP-PT Balance Assessment Sitting Balance Static Sitting Balance Ability Normal Dynamic Sitting Balance Ability Normal Standing Balance Static Standing Balance Ability Normal Dynamic Standing Balance Ability Good Device Used None Balance Tests Jon Balance Test Jon Balance Test Score 53/56 Jon Impairment Rating 1 to 19% Impaired (Score 45-55 ) Jon Balance Assessment Evaluation Sitting to Standing Ability Independent w/out Hands Unsupported Stance Safely- 2 minutes Sitting Unsupported, Feet on Floor Safely- 2 minutes Standing to Sitting Ability Safely, Minimal Hand Use Transfer Ability Safely, Minimal Hand Use Unsupported Stance- Eyes Closed Safely, 10 seconds Unsupported Stance- Eyes Open Independent, 1 minute Reaching Forward Standing Confidently, 10 inches Pick- Up Object From Floor Independent/Safe Look Behind Shoulder - Standing Shifts Weight Well Turning 360 Degrees Turns Bilateral, < 4 secs Unsupported Stance, Alternating Feet on (I)- 8 Steps in 20 secs Stair Unsupported Tandem Stance Achieves Tandem Unilateral Leg Stance Lifts Leg/Unable to Hold Total Score Jon Total Score (out of 56 points) 53 Jon Impairment Rating 1 to 19% Impaired (Score 45-55 ) Almonte Fall Scale Copyright Permission PT-OP-E Functional Tests Start: 02/19/20 15:52 Freq: Status: Active Protocol: Document 02/19/20 09:00 DCW (Rec: 02/19/20 16:16 [facility] [id number]) Functional Tests Functional Gait Assessment Score 21/30 Functional Gait Assessment Impairment 20 to <40% Impaired (Score 19- Rating 24) PT-OP-G Mobility & Gait Start: 02/19/20 15:52 Freq: Status: Active Protocol: Document 02/19/20 09:00 DCW (Rec: 02/19/20 16:16 [facility] [id number]) OP Gait Assessment Gait Gait Assistance Required: Independent Able to Maintain Weight Bearing Status Yes During Gait Assistive Devices Assistive Device None Gait Deviations General Gait Pattern Within Normal Limits Stair Climbing Evaluation Evaluation Level of Assist On Stairs Independent Devices Stair Climbing Assistive Devices Left Railing Technique/Endurance Stair Climbing Direction Ascend and Descend Stair Climbing Technique Step Over Step Number of Steps Climbed 4 PT-OP-M Strength Start: 02/19/20 15:52 Freq: Status: Active Protocol: Document 02/19/20 09:00 DCW (Rec: 02/19/20 16:16 DCW [id number]) Hip Strength Hip Manual Muscle Testing Right Flexion (L2) 4 Good Abduction 4- Good- Adduction 4 Good Left Flexion (L2) 4 Good Abduction 4- Good- Adduction 4 Good Knee Strength Knee Manual Muscle Testing Right Flexion (S2) 4+ Good+ Extension (L3) 4+ Good+ Left Flexion (S2) 4+ Good+ Extension (L3) 4+ Good+ Ankle/Foot Strength Ankle and Foot Manual Muscle Testing Right Dorsiflexion (L4) 4+ Good+ Plantarflexion (S1) 4+ Good+ Left Dorsiflexion (L4) 4+ Good+ Plantarflexion (S1) 4+ Good+ PT-OP-T Assessment and Plan Start: 02/19/20 15:52 Freq: Status: Active Protocol: Document 02/19/20 09:00 DCW (Rec: 02/19/20 16:16 DCW [id number]) Physical Therapy Assessment Rehab Potential Rehabilitation Potential Excellent Evaluation Complexity Number of Personal Factors/Comorbidities 1-2 Clinical Presentation at Evaluation Stable Impairments Impairments Balance,Functional Activities, Functional Mobility,Strength Goals Three Impairment Hip weakness Usp Goal (LTG) Pt to demonstrate bilateral hip MMT of 4+/5 in order to stabilize her pelvis during gait. LTG Duration 04/20/20 Two Impairment Pt scores a 21/30 on the FGA Emergency Management Program Specialist Goal (LTG) Pt's age group average score on the FGA is 24.9. In order to demonstrate improvement of her dynamic balance, pt will demonstrate a score of at least 25/30 on the FGA. LTG Duration 04/20/20 One Impairment Pt does not have an appropriate home exercise program Short Term Goal (STG) Pt to be independent and compliant with an appropriate HEP STG Duration 03/21/20 Assessment Summary Assessment Patient presents with signs and symptoms of a general decline in dynamic balance. Pt overall is doing quite well, fairly good strength and excellent (Jon score 53/56) static balance, but does show some difficulty with dynamic balance (FGA 21/30). Pt should benefit from skilled therapy focusing on balance training, hip strengthening, and improving activity tolerance. Pt did additionally report some instability upon first rising, however these symptoms were not able to be reproduced in the clinic, with a supine blood pressure of 110/70, and a standing blood pressure of 108/68, there was no indication of orthostasis. Physical Therapy Plan Frequency and Duration Frequency of Treatment 2x/Week Duration of Treatment 2 months Plan of Care Start Date 02/19/20 Plan of Care End Date 04/20/20 Therapeutic Interventions Therapeutic Interventions Balance Training,Coordination Training,Gait Training, Neuromuscular Re-education, Patient/Caregiver Education, Self-Care/Home Management, Therapeutic Activities, Therapeutic Exercises Next Visit Focus/Plan Next Note Type Treatment Note Next Visit Plan Balance training, neuromuscular reeducation
--- NOTE | 2020-02-19 16:17 | PT.OPPOC ---
Physical, Occupational & Speech Therapy At [facility] Current Diagnoses Unspecified abnormalities of gait and mobility (02/19/20) History of falling (02/19/20) Visit Care Team Role Provider Type Ryanne Mcdaniel MD Attending Provider Physician Primary Care Provider Referring Provider Specialty: [facility] Address: [address] [place] [address], [facility] Email: [email or web address] Plan Of Care PT-OP-T Assessment and Plan Start: 02/19/20 15:52 Freq: Status: Active Protocol: Document 02/19/20 09:00 DCW (Rec: 02/19/20 16:16 DCW [id number]) Physical Therapy Assessment Rehab Potential Rehabilitation Potential Excellent Evaluation Complexity Number of Personal Factors/Comorbidities 1-2 Clinical Presentation at Evaluation Stable Impairments Impairments Balance,Functional Activities, Functional Mobility,Strength Goals Three Impairment Hip weakness Retirement Goal (LTG) Pt to demonstrate bilateral hip MMT of 4+/5 in order to stabilize her pelvis during gait. LTG Duration 04/20/20 Two Impairment Pt scores a 21/30 on the FGA Manager Competitive Intelligence Goal (LTG) Pt's age group average score on the FGA is 24.9. In order to demonstrate improvement of her dynamic balance, pt will demonstrate a score of at least 25/30 on the FGA. LTG Duration 04/20/20 One Impairment Pt does not have an appropriate home exercise program Short Term Goal (STG) Pt to be independent and compliant with an appropriate HEP STG Duration 03/21/20 Assessment Summary Assessment Patient presents with signs and symptoms of a general decline in dynamic balance. Pt overall is doing quite well, fairly good strength and excellent (Jon score 53/56) static balance, but does show some difficulty with dynamic balance (FGA 21/30). Pt should benefit from skilled therapy focusing on balance training, hip strengthening, and improving activity tolerance. Pt did additionally report some instability upon first rising, however these symptoms were not able to be reproduced in the clinic, with a supine blood pressure of 110/70, and a standing blood pressure of 108/68, there was no indication of orthostasis. Physical Therapy Plan Frequency and Duration Frequency of Treatment 2x/Week Duration of Treatment 2 months Plan of Care Start Date 02/19/20 Plan of Care End Date 04/20/20 Therapeutic Interventions Therapeutic Interventions Balance Training,Coordination Training,Gait Training, Neuromuscular Re-education, Patient/Caregiver Education, Self-Care/Home Management, Therapeutic Activities, Therapeutic Exercises Next Visit Focus/Plan Next Note Type Treatment Note Next Visit Plan Balance training, neuromuscular reeducation Plan of Care Dates Plan of Care Start Date 02/19/20 Plan of Care End Date 04/20/20 Electronically Signed by: Ayad Butcher, PT 02/19/20 0985 Please Sign and Return: I have reviewed this Plan of Care and certify that the skilled therapy services above are required to meet the patient?s needs. Physician Signature Date Printed Name and Credentials Clinical Instructor Signature Printed Name and Credentials
--- NOTE | 2020-02-23 11:59 | PT.OTN ---
Current Diagnoses Unspecified abnormalities of gait and mobility (02/23/20) History of falling (02/23/20) Physical Therapy Treatment Note PT-OP-A Visit Information Start: 02/19/20 15:52 Freq: Status: Active Protocol: Document 02/23/20 11:15 DCW (Rec: 02/23/20 11:59 DCW [id number]) Out-Patient Physical Therapy Visit Information Visit Information Visit Type Treatment Note Visit Start Time 11:15 Visit Stop Time 12:00 Total Visit Minutes 45 Visit Number 2 Number of BACK DIGGER OPERATOR Visits 0 Evaluation Information Evaluation Date 02/19/20 PT-OP-B Current Condition Start: 02/19/20 15:52 Freq: Status: Active Protocol: Document 02/19/20 09:00 DCW (Rec: 02/19/20 16:16 DCW [id number]) Current Condition History of Current Condition Onset Date a few months Current Complaints Instability, fatigue History of Current Condition Pt is a 69 year old female presenting with a complaint of recent decline in balance and stability. Pt notes that it is not extreme, but I'm noticing a difference. Pt feels like the quality of her gait has declines, as well as her confidence when ascending stairs, and some instability upon first rising. Prior Treatments and Tests Bilateral MARIZOL Right Partial knee replacement Left TSA PT-OP-C Subjective Start: 02/19/20 15:52 Freq: Status: Active Protocol: Document 02/23/20 11:15 DCW (Rec: 02/23/20 11:59 DCW [id number]) OP-PT Subjective Patient Comments Patient Comments I'm actually feeling pretty good today. PT-OP-D Balance Start: 02/19/20 15:52 Freq: Status: Active Protocol: Document 02/19/20 09:00 DCW (Rec: 02/19/20 16:16 DCW [id number]) OP-PT Balance Assessment Sitting Balance Static Sitting Balance Ability Normal Dynamic Sitting Balance Ability Normal Standing Balance Static Standing Balance Ability Normal Dynamic Standing Balance Ability Good Device Used None Balance Tests Jon Balance Test Jon Balance Test Score 53/56 Jon Impairment Rating 1 to 19% Impaired (Score 45-55 ) Jon Balance Assessment Evaluation Sitting to Standing Ability Independent w/out Hands Unsupported Stance Safely- 2 minutes Sitting Unsupported, Feet on Floor Safely- 2 minutes Standing to Sitting Ability Safely, Minimal Hand Use Transfer Ability Safely, Minimal Hand Use Unsupported Stance- Eyes Closed Safely, 10 seconds Unsupported Stance- Eyes Open Independent, 1 minute Reaching Forward Standing Confidently, 10 inches Pick- Up Object From Floor Independent/Safe Look Behind Shoulder - Standing Shifts Weight Well Turning 360 Degrees Turns Bilateral, < 4 secs Unsupported Stance, Alternating Feet on (I)- 8 Steps in 20 secs Stair Unsupported Tandem Stance Achieves Tandem Unilateral Leg Stance Lifts Leg/Unable to Hold Total Score Jon Total Score (out of 56 points) 53 Jon Impairment Rating 1 to 19% Impaired (Score 45-55 ) Almonte Fall Scale Copyright Permission PT-OP-E Functional Tests Start: 02/19/20 15:52 Freq: Status: Active Protocol: Document 02/19/20 09:00 DCW (Rec: 02/19/20 16:16 DCW [id number]) Functional Tests Functional Gait Assessment Score 21/30 Functional Gait Assessment Impairment 20 to <40% Impaired (Score 19- Rating 24) PT-OP-G Mobility & Gait Start: 02/19/20 15:52 Freq: Status: Active Protocol: Document 02/19/20 09:00 DCW (Rec: 02/19/20 16:16 DCW [id number]) OP Gait Assessment Gait Gait Assistance Required: Independent Able to Maintain Weight Bearing Status Yes During Gait Assistive Devices Assistive Device None Gait Deviations General Gait Pattern Within Normal Limits Stair Climbing Evaluation Evaluation Level of Assist On Stairs Independent Devices Stair Climbing Assistive Devices Left Railing Technique/Endurance Stair Climbing Direction Ascend and Descend Stair Climbing Technique Step Over Step Number of Steps Climbed 4 PT-OP-M Strength Start: 02/19/20 15:52 Freq: Status: Active Protocol: Document 02/19/20 09:00 DCW (Rec: 02/19/20 16:16 DCW [id number]) Hip Strength Hip Manual Muscle Testing Right Flexion (L2) 4 Good Abduction 4- Good- Adduction 4 Good Left Flexion (L2) 4 Good Abduction 4- Good- Adduction 4 Good Knee Strength Knee Manual Muscle Testing Right Flexion (S2) 4+ Good+ Extension (L3) 4+ Good+ Left Flexion (S2) 4+ Good+ Extension (L3) 4+ Good+ Ankle/Foot Strength Ankle and Foot Manual Muscle Testing Right Dorsiflexion (L4) 4+ Good+ Plantarflexion (S1) 4+ Good+ Left Dorsiflexion (L4) 4+ Good+ Plantarflexion (S1) 4+ Good+ PT-OP-Q Treatments Start: 02/19/20 15:52 Freq: Status: Active Protocol: Document 02/23/20 11:15 DCW (Rec: 02/23/20 11:59 DCW [id number]) Cardio Equipment Recumbent Elliptical (Biodex) Duration (Minutes) 5 Resistance 4 Seat Position 7 Gym Equipment Shuttle Balance Red Details Wide FLORI, Staggered Stance, Lateral weight shift Therapeutic Exercises Other Exercises 1 Other Exercise Name Resisted Ambulation - Lateral, Fwd/Bkwd Resistance Green Equipment Used T-band Neuro Re-Education Treatment Balance Activities Ankle strategies Details Controlled bkwd fall into wall Balance board Details PF/DF Equipment YelloYello balance board Staggered Stance Details Staggered Stance Surface Blue/Fernandez Foam Foam Stance Details NBOS Surface Fernandez Foam SLS Details SLS Equipment at rail PT-OP-T Assessment and Plan Start: 02/19/20 15:52 Freq: Status: Active Protocol: Document 02/23/20 11:15 DCW (Rec: 02/23/20 11:59 DCW [id number]) Physical Therapy Assessment Impairments Impairments Balance,Functional Activities, Functional Mobility,Strength Goals Three Impairment Hip weakness Jail Goal (LTG) Pt to demonstrate bilateral hip MMT of 4+/5 in order to stabilize her pelvis during gait. LTG Duration 04/20/20 Two Impairment Pt scores a 21/30 on the FGA Meal Room Hand Goal (LTG) Pt's age group average score on the FGA is 24.9. In order to demonstrate improvement of her dynamic balance, pt will demonstrate a score of at least 25/30 on the FGA. LTG Duration 04/20/20 One Impairment Pt does not have an appropriate home exercise program Short Term Goal (STG) Pt to be independent and compliant with an appropriate HEP STG Duration 03/21/20 Assessment Summary Assessment Pt tolerated treatment well today, no problems or concerns with balance training. Continue to increase challenges next visit, add in more dynamic exercises. Physical Therapy Plan Frequency and Duration Frequency of Treatment 2x/Week Duration of Treatment 2 months Plan of Care Start Date 02/19/20 Plan of Care End Date 09/30/20 Therapeutic Interventions Therapeutic Interventions Balance Training,Coordination Training,Gait Training, Neuromuscular Re-education, Patient/Caregiver Education, Self-Care/Home Management, Therapeutic Activities, Therapeutic Exercises Next Visit Focus/Plan Next Note Type Treatment Note Next Visit Plan Balance training, neuromuscular reeducation
--- NOTE | 2020-02-25 12:05 | PT.OTN ---
Current Diagnoses Unspecified abnormalities of gait and mobility (02/25/20) History of falling (02/25/20) Physical Therapy Treatment Note PT-OP-A Visit Information Start: 02/19/20 15:52 Freq: Status: Active Protocol: Document 02/25/20 11:15 DCW (Rec: 02/25/20 12:05 DCW [id number]) Out-Patient Physical Therapy Visit Information Visit Information Visit Type Treatment Note Visit Start Time 11:15 Visit Stop Time 12:00 Total Visit Minutes 45 Visit Number 3 Number of MASTER CRAFTSMAN Visits 0 Evaluation Information Evaluation Date 02/19/20 PT-OP-B Current Condition Start: 02/19/20 15:52 Freq: Status: Active Protocol: Document 02/19/20 09:00 DCW (Rec: 02/19/20 16:16 DCW [id number]) Current Condition History of Current Condition Onset Date a few months Current Complaints Instability, fatigue History of Current Condition Pt is a 69 year old female presenting with a complaint of recent decline in balance and stability. Pt notes that it is not extreme, but I'm noticing a difference. Pt feels like the quality of her gait has declines, as well as her confidence when ascending stairs, and some instability upon first rising. Prior Treatments and Tests Bilateral MARIZOL Right Partial knee replacement Left TSA PT-OP-C Subjective Start: 02/19/20 15:52 Freq: Status: Active Protocol: Document 02/25/20 11:15 DCW (Rec: 02/25/20 12:05 DCW [id number]) OP-PT Subjective Patient Comments Patient Comments Pt reports she is doing well. PT-OP-D Balance Start: 02/19/20 15:52 Freq: Status: Active Protocol: Document 02/19/20 09:00 DCW (Rec: 02/19/20 16:16 DCW [id number]) OP-PT Balance Assessment Sitting Balance Static Sitting Balance Ability Normal Dynamic Sitting Balance Ability Normal Standing Balance Static Standing Balance Ability Normal Dynamic Standing Balance Ability Good Device Used None Balance Tests Jon Balance Test Jon Balance Test Score 53/56 Jon Impairment Rating 1 to 19% Impaired (Score 45-55 ) Jon Balance Assessment Evaluation Sitting to Standing Ability Independent w/out Hands Unsupported Stance Safely- 2 minutes Sitting Unsupported, Feet on Floor Safely- 2 minutes Standing to Sitting Ability Safely, Minimal Hand Use Transfer Ability Safely, Minimal Hand Use Unsupported Stance- Eyes Closed Safely, 10 seconds Unsupported Stance- Eyes Open Independent, 1 minute Reaching Forward Standing Confidently, 10 inches Pick- Up Object From Floor Independent/Safe Look Behind Shoulder - Standing Shifts Weight Well Turning 360 Degrees Turns Bilateral, < 4 secs Unsupported Stance, Alternating Feet on (I)- 8 Steps in 20 secs Stair Unsupported Tandem Stance Achieves Tandem Unilateral Leg Stance Lifts Leg/Unable to Hold Total Score Jon Total Score (out of 56 points) 53 Jon Impairment Rating 1 to 19% Impaired (Score 45-55 ) Almonte Fall Scale Copyright Permission PT-OP-E Functional Tests Start: 02/19/20 15:52 Freq: Status: Active Protocol: Document 02/19/20 09:00 DCW (Rec: 02/19/20 16:16 DCW [id number]) Functional Tests Functional Gait Assessment Score 21/30 Functional Gait Assessment Impairment 20 to <40% Impaired (Score 19- Rating 24) PT-OP-G Mobility & Gait Start: 02/19/20 15:52 Freq: Status: Active Protocol: Document 02/19/20 09:00 DCW (Rec: 02/19/20 16:16 DCW [id number]) OP Gait Assessment Gait Gait Assistance Required: Independent Able to Maintain Weight Bearing Status Yes During Gait Assistive Devices Assistive Device None Gait Deviations General Gait Pattern Within Normal Limits Stair Climbing Evaluation Evaluation Level of Assist On Stairs Independent Devices Stair Climbing Assistive Devices Left Railing Technique/Endurance Stair Climbing Direction Ascend and Descend Stair Climbing Technique Step Over Step Number of Steps Climbed 4 PT-OP-M Strength Start: 02/19/20 15:52 Freq: Status: Active Protocol: Document 02/19/20 09:00 DCW (Rec: 02/19/20 16:16 DCW [id number]) Hip Strength Hip Manual Muscle Testing Right Flexion (L2) 4 Good Abduction 4- Good- Adduction 4 Good Left Flexion (L2) 4 Good Abduction 4- Good- Adduction 4 Good Knee Strength Knee Manual Muscle Testing Right Flexion (S2) 4+ Good+ Extension (L3) 4+ Good+ Left Flexion (S2) 4+ Good+ Extension (L3) 4+ Good+ Ankle/Foot Strength Ankle and Foot Manual Muscle Testing Right Dorsiflexion (L4) 4+ Good+ Plantarflexion (S1) 4+ Good+ Left Dorsiflexion (L4) 4+ Good+ Plantarflexion (S1) 4+ Good+ PT-OP-Q Treatments Start: 02/19/20 15:52 Freq: Status: Active Protocol: Document 02/25/20 11:15 DCW (Rec: 02/25/20 12:05 DCW [id number]) Gym Equipment Shuttle Balance Red Details Wide FLORI, Staggered Stance, Lateral weight shift Therapeutic Exercises Standing Exercises 2 Standing Exercise Name Hip Extension Side bilateral Resistance Lv 1 Equipment Used T-band 1 Standing Exercise Name Hip Abduction Side bilateral Resistance Lv 1 Equipment Used T-band Neuro Re-Education Treatment Balance Activities BOSU Stance Details Wide FLORI Surface Blue BOSU Hurdles Details Hurdles/Foam Ball/cone transfers Details Ball/cone transfers EC Amb Details Eyes closed ambulation Tandem amb Details /c and /s head turns PT-OP-T Assessment and Plan Start: 02/19/20 15:52 Freq: Status: Active Protocol: Document 02/25/20 11:15 DCW (Rec: 02/25/20 12:05 DCW [id number]) Physical Therapy Assessment Impairments Impairments Balance,Functional Activities, Functional Mobility,Strength Goals Three Impairment Hip weakness Fpc Goal (LTG) Pt to demonstrate bilateral hip MMT of 4+/5 in order to stabilize her pelvis during gait. LTG Duration 04/20/20 Two Impairment Pt scores a 21/30 on the FGA Fpc Goal (LTG) Pt's age group average score on the FGA is 24.9. In order to demonstrate improvement of her dynamic balance, pt will demonstrate a score of at least 25/30 on the FGA. LTG Duration 04/20/20 One Impairment Pt does not have an appropriate home exercise program Short Term Goal (STG) Pt to be independent and compliant with an appropriate HEP STG Duration 03/21/20 Assessment Summary Assessment Pt showing increased hip pain and weakness today. Had much more difficulty today with increased focus on dynamic balance vs static. Physical Therapy Plan Frequency and Duration Frequency of Treatment 2x/Week Duration of Treatment 2 months Plan of Care Start Date 02/19/20 Plan of Care End Date 04/20/20 Therapeutic Interventions Therapeutic Interventions Balance Training,Coordination Training,Gait Training, Neuromuscular Re-education, Patient/Caregiver Education, Self-Care/Home Management, Therapeutic Activities, Therapeutic Exercises Next Visit Focus/Plan Next Note Type Treatment Note Next Visit Plan Balance training, neuromuscular reeducation
--- NOTE | 2020-03-01 12:43 | PT.OTN ---
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 Pt notes that it is not extreme, but I'm noticing a difference. Pt feels like the quality of her gait has declines, as well as her confidence when ascending stairs, and some instability upon first rising. Prior Treatments and Tests Bilateral MARIZOL Right Partial knee replacement Left TSA PT-OP-C Subjective Start: 02/19/20 15:52 Freq: Status: Active Protocol: Document 03/01/20 12:00 DCW (Rec: 03/01/20 12:43 DCW [id number]) OP-PT Subjective Patient Comments Patient Comments Pt rode bike in to therapy today, feeling well. PT-OP-D Balance Start: 02/19/20 15:52 Freq: Status: Active Protocol: Document 02/19/20 09:00 DCW (Rec: 02/19/20 16:16 DCW [id number]) OP-PT Balance Assessment Sitting Balance Static Sitting Balance Ability Normal Dynamic Sitting Balance Ability Normal Standing Balance Static Standing Balance Ability Normal Dynamic Standing Balance Ability Good Device Used None Balance Tests Jon Balance Test Jon Balance Test Score 53/56 Jon Impairment Rating 1 to 19% Impaired (Score 45-55 ) Jon Balance Assessment Evaluation Sitting to Standing Ability Independent w/out Hands Unsupported Stance Safely- 2 minutes Sitting Unsupported, Feet on Floor Safely- 2 minutes Standing to Sitting Ability Safely, Minimal Hand Use Transfer Ability Safely, Minimal Hand Use Unsupported Stance- Eyes Closed Safely, 10 seconds Unsupported Stance- Eyes Open Independent, 1 minute Reaching Forward Standing Confidently, 10 inches Pick- Up Object From Floor Independent/Safe Look Behind Shoulder - Standing Shifts Weight Well Turning 360 Degrees Turns Bilateral, < 4 secs Unsupported Stance, Alternating Feet on (I)- 8 Steps in 20 secs Stair Unsupported Tandem Stance Achieves Tandem Unilateral Leg Stance Lifts Leg/Unable to Hold Total Score Jon Total Score (out of 56 points) 53 Jon Impairment Rating 1 to 19% Impaired (Score 45-55 ) Almonte Fall Scale Copyright Permission PT-OP-E Functional Tests Start: 02/19/20 15:52 Freq: Status: Active Protocol: Document 02/19/20 09:00 DCW (Rec: 02/19/20 16:16 DCW [id number]) Functional Tests Functional Gait Assessment Score 21/30 Functional Gait Assessment Impairment 20 to <40% Impaired (Score 19- Rating 24) PT-OP-G Mobility & Gait Start: 02/19/20 15:52 Freq: Status: Active Protocol: Document 02/19/20 09:00 DCW (Rec: 02/19/20 16:16 DCW [id number]) OP Gait Assessment Gait Gait Assistance Required: Independent Able to Maintain Weight Bearing Status Yes During Gait Assistive Devices Assistive Device None Gait Deviations General Gait Pattern Within Normal Limits Stair Climbing Evaluation Evaluation Level of Assist On Stairs Independent Devices Stair Climbing Assistive Devices Left Railing Technique/Endurance Stair Climbing Direction Ascend and Descend Stair Climbing Technique Step Over Step Number of Steps Climbed 4 PT-OP-M Strength Start: 02/19/20 15:52 Freq: Status: Active Protocol: Document 02/19/20 09:00 DCW (Rec: 02/19/20 16:16 DCW [id number]) Hip Strength Hip Manual Muscle Testing Right Flexion (L2) 4 Good Abduction 4- Good- Adduction 4 Good Left Flexion (L2) 4 Good Abduction 4- Good- Adduction 4 Good Knee Strength Knee Manual Muscle Testing Right Flexion (S2) 4+ Good+ Extension (L3) 4+ Good+ Left Flexion (S2) 4+ Good+ Extension (L3) 4+ Good+ Ankle/Foot Strength Ankle and Foot Manual Muscle Testing Right Dorsiflexion (L4) 4+ Good+ Plantarflexion (S1) 4+ Good+ Left Dorsiflexion (L4) 4+ Good+ Plantarflexion (S1) 4+ Good+ PT-OP-Q Treatments Start: 02/19/20 15:52 Freq: Status: Active Protocol: Document 03/01/20 12:00 DCW (Rec: 03/01/20 12:43 DCW [id number]) Gym Equipment Shuttle Balance Red Comments WBOS (EO/EC, Ball Toss) Staggered Lateral Weight Shift Therapeutic Exercises Other Exercises 1 Other Exercise Name Resisted Ambulation - Lateral, Fwd/Bkwd Resistance Green Equipment Used T-band Neuro Re-Education Treatment Balance Activities Wide base ambulation Details Amb /s scissoring BOSU Stance Details Wide FLORI Surface Blue BOSU Comments EO/EC Ball/cone transfers Details Ball/cone transfers EC Amb Details Eyes closed ambulation Ankle strategies Details Controlled bkwd fall into wall PT-OP-T Assessment and Plan Start: 02/19/20 15:52 Freq: Status: Active Protocol: Document 03/01/20 12:00 DCW (Rec: 03/01/20 12:43 DCW [id number]) Physical Therapy Assessment Impairments Impairments Balance,Functional Activities, Functional Mobility,Strength Goals Three Impairment Hip weakness Tip Cementer Goal (LTG) Pt to demonstrate bilateral hip MMT of 4+/5 in order to stabilize her pelvis during gait. LTG Duration 04/20/20 Two Impairment Pt scores a 21/30 on the FGA Senior Care Goal (LTG) Pt's age group average score on the FGA is 24.9. In order to demonstrate improvement of her dynamic balance, pt will demonstrate a score of at least 25/30 on the FGA. LTG Duration 04/20/20 One Impairment Pt does not have an appropriate home exercise program Short Term Goal (STG) Pt to be independent and compliant with an appropriate HEP STG Duration 03/21/20 Assessment Summary Assessment Pt fatigued with activity today, tends to scissor her gait, crossing over midline with both feet. Displays increased mobility of the hips and pelvis during gait. Physical Therapy Plan Frequency and Duration Frequency of Treatment 2x/Week Duration of Treatment 2 months Plan of Care Start Date 02/19/20 Plan of Care End Date 04/20/20 Therapeutic Interventions Therapeutic Interventions Balance Training,Coordination Training,Gait Training, Neuromuscular Re-education, Patient/Caregiver Education, Self-Care/Home Management, Therapeutic Activities, Therapeutic Exercises Next Visit Focus/Plan Next Note Type Treatment Note Next Visit Plan Balance training, neuromuscular reeducation
--- NOTE | 2020-03-03 12:49 | PT.OTN ---
Current Diagnoses Unspecified abnormalities of gait and mobility (03/03/20) History of falling (03/03/20) Physical Therapy Treatment Note PT-OP-A Visit Information Start: 02/19/20 15:52 Freq: Status: Active Protocol: Document 03/03/20 12:00 DCW (Rec: 03/03/20 12:49 DCW [id number]) Out-Patient Physical Therapy Visit Information Visit Information Visit Type Treatment Note Visit Start Time 12:00 Visit Stop Time 12:45 Total Visit Minutes 45 Visit Number 5 Number of M1A1 TANK CREWMAN Visits 0 Evaluation Information Evaluation Date 02/19/20 PT-OP-B Current Condition Start: 02/19/20 15:52 Freq: Status: Active Protocol: Document 02/19/20 09:00 DCW (Rec: 02/19/20 16:16 DCW [id number]) Current Condition History of Current Condition Onset Date a few months Current Complaints Instability, fatigue History of Current Condition Pt is a 69 year old female presenting with a complaint of recent decline in balance and stability. Pt notes that it is not extreme, but I'm noticing a difference. Pt feels like the quality of her gait has declines, as well as her confidence when ascending stairs, and some instability upon first rising. Prior Treatments and Tests Bilateral MARIZOL Right Partial knee replacement Left TSA PT-OP-C Subjective Start: 02/19/20 15:52 Freq: Status: Active Protocol: Document 03/03/20 12:00 DCW (Rec: 03/03/20 12:49 DCW [id number]) OP-PT Subjective Patient Comments Patient Comments Pt reports she is doing well today. PT-OP-D Balance Start: 02/19/20 15:52 Freq: Status: Active Protocol: Document 02/19/20 09:00 DCW (Rec: 02/19/20 16:16 DCW [id number]) OP-PT Balance Assessment Sitting Balance Static Sitting Balance Ability Normal Dynamic Sitting Balance Ability Normal Standing Balance Static Standing Balance Ability Normal Dynamic Standing Balance Ability Good Device Used None Balance Tests Jon Balance Test Jon Balance Test Score 53/56 Jon Impairment Rating 1 to 19% Impaired (Score 45-55 ) Jon Balance Assessment Evaluation Sitting to Standing Ability Independent w/out Hands Unsupported Stance Safely- 2 minutes Sitting Unsupported, Feet on Floor Safely- 2 minutes Standing to Sitting Ability Safely, Minimal Hand Use Transfer Ability Safely, Minimal Hand Use Unsupported Stance- Eyes Closed Safely, 10 seconds Unsupported Stance- Eyes Open Independent, 1 minute Reaching Forward Standing Confidently, 10 inches Pick- Up Object From Floor Independent/Safe Look Behind Shoulder - Standing Shifts Weight Well Turning 360 Degrees Turns Bilateral, < 4 secs Unsupported Stance, Alternating Feet on (I)- 8 Steps in 20 secs Stair Unsupported Tandem Stance Achieves Tandem Unilateral Leg Stance Lifts Leg/Unable to Hold Total Score Jon Total Score (out of 56 points) 53 Jon Impairment Rating 1 to 19% Impaired (Score 45-55 ) Almonte Fall Scale Copyright Permission PT-OP-E Functional Tests Start: 02/19/20 15:52 Freq: Status: Active Protocol: Document 02/19/20 09:00 DCW (Rec: 02/19/20 16:16 DCW [id number]) Functional Tests Functional Gait Assessment Score 21/30 Functional Gait Assessment Impairment 20 to <40% Impaired (Score 19- Rating 24) PT-OP-G Mobility & Gait Start: 02/19/20 15:52 Freq: Status: Active Protocol: Document 02/19/20 09:00 DCW (Rec: 02/19/20 16:16 DCW [id number]) OP Gait Assessment Gait Gait Assistance Required: Independent Able to Maintain Weight Bearing Status Yes During Gait Assistive Devices Assistive Device None Gait Deviations General Gait Pattern Within Normal Limits Stair Climbing Evaluation Evaluation Level of Assist On Stairs Independent Devices Stair Climbing Assistive Devices Left Railing Technique/Endurance Stair Climbing Direction Ascend and Descend Stair Climbing Technique Step Over Step Number of Steps Climbed 4 PT-OP-M Strength Start: 02/19/20 15:52 Freq: Status: Active Protocol: Document 02/19/20 09:00 DCW (Rec: 02/19/20 16:16 DCW [id number]) Hip Strength Hip Manual Muscle Testing Right Flexion (L2) 4 Good Abduction 4- Good- Adduction 4 Good Left Flexion (L2) 4 Good Abduction 4- Good- Adduction 4 Good Knee Strength Knee Manual Muscle Testing Right Flexion (S2) 4+ Good+ Extension (L3) 4+ Good+ Left Flexion (S2) 4+ Good+ Extension (L3) 4+ Good+ Ankle/Foot Strength Ankle and Foot Manual Muscle Testing Right Dorsiflexion (L4) 4+ Good+ Plantarflexion (S1) 4+ Good+ Left Dorsiflexion (L4) 4+ Good+ Plantarflexion (S1) 4+ Good+ PT-OP-Q Treatments Start: 02/19/20 15:52 Freq: Status: Active Protocol: Document 03/03/20 12:00 DCW (Rec: 03/03/20 12:49 DCW [id number]) Gym Equipment Shuttle Balance Red Comments WBOS (EO/EC, Ball Toss) Staggered Lateral Weight Shift Therapeutic Exercises Standing Exercises 3 Standing Exercise Name Hip hiking Equipment Used 4 step 2 Standing Exercise Name Hip Extension Side bilateral Resistance Lv 1 Equipment Used T-band 1 Standing Exercise Name Hip Abduction Side bilateral Resistance Lv 1 Equipment Used T-band Other Exercises 1 Other Exercise Name Resisted Ambulation - Lateral, Fwd/Bkwd Resistance Green Equipment Used T-band Neuro Re-Education Treatment Balance Activities Turns Details Eyes closed turn to target BOSU Stance Details Wide FLORI Surface Blue BOSU Comments EO/EC EC Amb Details Eyes closed ambulation Tandem amb Details /c and /s head turns SLS Details SLS Comments Focus on stabilizing hips PT-OP-T Assessment and Plan Start: 02/19/20 15:52 Freq: Status: Active Protocol: Document 03/03/20 12:00 DCW (Rec: 03/03/20 12:49 DCW [id number]) Physical Therapy Assessment Impairments Impairments Balance,Functional Activities, Functional Mobility,Strength Goals Three Impairment Hip weakness Wheelchair Driver Goal (LTG) Pt to demonstrate bilateral hip MMT of 4+/5 in order to stabilize her pelvis during gait. LTG Duration 04/20/20 Two Impairment Pt scores a 21/30 on the FGA Senior Living Goal (LTG) Pt's age group average score on the FGA is 24.9. In order to demonstrate improvement of her dynamic balance, pt will demonstrate a score of at least 25/30 on the FGA. LTG Duration 04/20/20 One Impairment Pt does not have an appropriate home exercise program Short Term Goal (STG) Pt to be independent and compliant with an appropriate HEP STG Duration 03/21/20 Assessment Summary Assessment Less fatigue today, continues to display poor hip stability, especially with SLS. Physical Therapy Plan Frequency and Duration Frequency of Treatment 2x/Week Duration of Treatment 2 months Plan of Care Start Date 02/19/20 Plan of Care End Date 04/20/20 Therapeutic Interventions Therapeutic Interventions Balance Training,Coordination Training,Gait Training, Neuromuscular Re-education, Patient/Caregiver Education, Self-Care/Home Management, Therapeutic Activities, Therapeutic Exercises Next Visit Focus/Plan Next Note Type Treatment Note Next Visit Plan Balance training, neuromuscular reeducation
--- NOTE | 2020-03-09 16:21 | PT.OPDS ---
Current Diagnoses Unspecified abnormalities of gait and mobility (03/03/20) History of falling (03/03/20) Visit Care Team Role Provider Type Ryanne Mcdaniel MD Attending Provider Physician Primary Care Provider Referring Provider Specialty: [facility] Address: [address] [place] [address], [id number] Email: [email or web address] Visit Number Visit Number 5 Discharge Summary PT-OP-B Current Condition Start: 02/19/20 15:52 Freq: Status: Active Protocol: Document 02/19/20 09:00 DCW (Rec: 02/19/20 16:16 DCW [id number]) Current Condition History of Current Condition Onset Date a few months Current Complaints Instability, fatigue History of Current Condition Pt is a 69 year old female presenting with a complaint of recent decline in balance and stability. Pt notes that it is not extreme, but I'm noticing a difference. Pt feels like the quality of her gait has declines, as well as her confidence when ascending stairs, and some instability upon first rising. Prior Treatments and Tests Bilateral MARIZOL Right Partial knee replacement Left TSA PT-OP-C Subjective Start: 02/19/20 15:52 Freq: Status: Active Protocol: Document 03/03/20 12:00 DCW (Rec: 03/03/20 12:49 DCW [id number]) OP-PT Subjective Patient Comments Patient Comments Pt reports she is doing well today. PT-OP-D Balance Start: 02/19/20 15:52 Freq: Status: Active Protocol: Document 02/19/20 09:00 DCW (Rec: 02/19/20 16:16 DCW [id number]) OP-PT Balance Assessment Sitting Balance Static Sitting Balance Ability Normal Dynamic Sitting Balance Ability Normal Standing Balance Static Standing Balance Ability Normal Dynamic Standing Balance Ability Good Device Used None Balance Tests Jon Balance Test Jon Balance Test Score 53/56 Jon Impairment Rating 1 to 19% Impaired (Score 45-55 ) Jon Balance Assessment Evaluation Sitting to Standing Ability Independent w/out Hands Unsupported Stance Safely- 2 minutes Sitting Unsupported, Feet on Floor Safely- 2 minutes Standing to Sitting Ability Safely, Minimal Hand Use Transfer Ability Safely, Minimal Hand Use Unsupported Stance- Eyes Closed Safely, 10 seconds Unsupported Stance- Eyes Open Independent, 1 minute Reaching Forward Standing Confidently, 10 inches Pick- Up Object From Floor Independent/Safe Look Behind Shoulder - Standing Shifts Weight Well Turning 360 Degrees Turns Bilateral, < 4 secs Unsupported Stance, Alternating Feet on (I)- 8 Steps in 20 secs Stair Unsupported Tandem Stance Achieves Tandem Unilateral Leg Stance Lifts Leg/Unable to Hold Total Score Jon Total Score (out of 56 points) 53 Jon Impairment Rating 1 to 19% Impaired (Score 45-55 ) Almonte Fall Scale Copyright Permission PT-OP-E Functional Tests Start: 02/19/20 15:52 Freq: Status: Active Protocol: Document 02/19/20 09:00 DCW (Rec: 02/19/20 16:16 DCW [id number]) Functional Tests Functional Gait Assessment Score 21/30 Functional Gait Assessment Impairment 20 to <40% Impaired (Score 19- Rating 24) PT-OP-G Mobility & Gait Start: 02/19/20 15:52 Freq: Status: Active Protocol: Document 02/19/20 09:00 DCW (Rec: 02/19/20 16:16 DCW [id number]) OP Gait Assessment Gait Gait Assistance Required: Independent Able to Maintain Weight Bearing Status Yes During Gait Assistive Devices Assistive Device None Gait Deviations General Gait Pattern Within Normal Limits Stair Climbing Evaluation Evaluation Level of Assist On Stairs Independent Devices Stair Climbing Assistive Devices Left Railing Technique/Endurance Stair Climbing Direction Ascend and Descend Stair Climbing Technique Step Over Step Number of Steps Climbed 4 PT-OP-M Strength Start: 02/19/20 15:52 Freq: Status: Active Protocol: Document 02/19/20 09:00 DCW (Rec: 02/19/20 16:16 DCW [id number]) Hip Strength Hip Manual Muscle Testing Right Flexion (L2) 4 Good Abduction 4- Good- Adduction 4 Good Left Flexion (L2) 4 Good Abduction 4- Good- Adduction 4 Good Knee Strength Knee Manual Muscle Testing Right Flexion (S2) 4+ Good+ Extension (L3) 4+ Good+ Left Flexion (S2) 4+ Good+ Extension (L3) 4+ Good+ Ankle/Foot Strength Ankle and Foot Manual Muscle Testing Right Dorsiflexion (L4) 4+ Good+ Plantarflexion (S1) 4+ Good+ Left Dorsiflexion (L4) 4+ Good+ Plantarflexion (S1) 4+ Good+ PT-OP-T Assessment and Plan Start: 02/19/20 15:52 Freq: Status: Active Protocol: Document 03/09/20 16:20 DCW (Rec: 03/09/20 16:21 DCW [id number]) Physical Therapy Assessment Assessment Summary Assessment Pt phoned clinic today to request discharge, reports she will be having surgery soon. Physical Therapy Plan Discharge Physical Therapy Discharge Reasons Patient Request Next Visit Focus/Plan Next Note Type Discharge Summary
== END 2020-03-16 09:07 | disposition home or self-care (01) ==
LOC: PHYS 12:00
PROVIDERS: PCP Student in an Organized Health Care Education/Training Program; Referring Provider Student in an Organized Health Care Education/Training Program; Visit Provider Student in an Organized Health Care Education/Training Program
DX: Z91.81 History of falling (principal); R26.9 Unspecified abnormalities of gait and mobility
CPT/HCPCS: 97110; 97112; 97161

== ENCOUNTER → 2020-03-19 11:42 | Outpatient (CLI) | payer MEDICARE, OTHER, SELFPAY ==
--- NOTE | 2020-03-19 | DI.MRI.S_ITS ---
PROCEDURE: MR LUMBAR SPINE WO CON INDICATIONS: BACK PAIN TECHNIQUE: Noncontrast sagittal T1 spin echo and T2 fast echo, sagittal STIR, axial T1 and T2 fast spin echo through the lumbar spine. In cases with scoliosis, additional coronal T2 fast spin echo may be performed. COMPARISON: [facility], , L-SPINE 2-3 VIEWS, 09/24/2006, 12:29. FINDINGS: Image quality: Excellent. Alignment and Curvature: 5 lumbar type vertebral bodies are present by plain film. There is mild diffuse leftward curvature of the lumbar spine. Mild grade 1 retrolisthesis of T12 on L1, L1 on L2, and L2 on L3. Grade 1 anterolisthesis of L4 on L5. Bone Marrow: Marrow is of normal overall signal. No acute vertebral body compression fractures. Spinal Cord: Conus medullaris terminates at the upper L1 level. Visualized cord demonstrates normal signal and size. Paraspinous Soft Tissues: No paravertebral masses. L1-L2: Moderate disc height loss and desiccation. Mild diffuse disc bulge with superimposed broad-based right posterolateral protrusion. Mild facet and ligamentum flavum hypertrophy. Mild epidural lipomatosis. Mild canal stenosis. Mild right greater than left foraminal stenosis. L2-L3: Moderate disc height loss and desiccation. Mild diffuse disc bulge/osteophyte. Mild facet and ligamentum flavum hypertrophy. Mild epidural lipomatosis. Mild canal stenosis. Moderate left and mild right foraminal stenosis. L3-L4: Moderate disc height loss and desiccation. Mild diffuse disc bulge. Mild facet and ligamentum flavum hypertrophy. Mild epidural lipomatosis. Mild canal stenosis. Mild bilateral foraminal stenosis. L4-L5: Moderate disc height loss and desiccation. Moderate facet and ligamentum flavum hypertrophy bilaterally. Mild epidural lipomatosis. Moderate canal stenosis. Moderate bilateral foraminal stenosis. L5-S1: Mild disc height loss and desiccation. Mild diffuse disc bulge. Moderate facet hypertrophy bilaterally. Periarticular cyst arising from the left facet joint, protruding into the left posterolateral epidural space, measuring 7 mm anteroposterior. There is mild canal stenosis. There is moderate subarticular foraminal stenosis bilaterally. There is compression of the left S1 nerve root within the lateral recess. IMPRESSION: 1. Multilevel degenerative disc and facet disease, as well as ligamentum flavum hypertrophy and epidural lipomatosis. 2. Multilevel canal stenosis, worst at L4-L5, where there is moderate canal stenosis. 3. Multilevel foraminal stenosis, worst at L2-L3, L4-L5, and L5-S1, where there are moderate foraminal stenosis present. 4. Left L5-S1 periarticular facet cyst. There is associated left S1 nerve root compression as described above. Recommend correlation with clinical symptoms to ascertain relevance of this finding. Dictated by: Lesley Barrera M.D. on 03/21/2020 at 10:50 Approved by: Lesley Barrera M.D. on 03/21/2020 at 11:06
== END ==
PROVIDERS: PCP Student in an Organized Health Care Education/Training Program; Referring Provider Student in an Organized Health Care Education/Training Program; Visit Provider Student in an Organized Health Care Education/Training Program
DX: M54.5 Low back pain (principal); M51.36 Other intervertebral disc degeneration, lumbar region; M51.37 Other intervertebral disc degeneration, lumbosacral region; M48.061 Spinal stenosis, lumbar region without neurogenic claudication; M48.07 Spinal stenosis, lumbosacral region; M53.87 Other specified dorsopathies, lumbosacral region; E88.2 Lipomatosis, not elsewhere classified
CPT/HCPCS: 72148

== ENCOUNTER → 2020-04-06 12:23 | Outpatient (CLI) | payer MEDICARE, OTHER, SELFPAY ==
--- NOTE | 2020-04-06 12:24 | DI.RAD.S_ITS ---
PROCEDURE: XR LUMBAR SPINE MIN 4V COMPARISON: [facility], MR, MR LUMBAR SPINE WO CON, 03/19/2020, 11:51. [facility], CR, L-SPINE 2-3 VIEWS, 09/24/2006, 12:29. INDICATIONS: Herniated disc, back pain FINDINGS: Convex leftward scoliosis is centered at L1, moderate in severity. Degenerative disc disease is moderately severe along the lumbosacral spine, without significant subluxation abnormality. Facet osteoarthritis also is moderately severe, over the middle and lower thirds of the LS spine. Spinal and foraminal stenosis would be suspected at L4-5 and L5-S1. IMPRESSION: Degenerative disc disease and facet osteoarthritis combines with convex leftward scoliosis along the lumbosacral spine to the degree that spinal and foraminal stenosis would be suspected at L4-5 and L5-S1. The degree of scoliosis has significantly worsened from the comparison plain film imaging from 2006. Please also refer to the LS spine MRI 03/19/20. Dictated by: Oj Conde M.D. on 04/06/2020 at 13:38 Approved by: Oj Conde M.D. on 04/06/2020 at 13:45
== END ==
PROVIDERS: PCP Student in an Organized Health Care Education/Training Program; Referring Provider Personal Emergency Response Attendant; Visit Provider Personal Emergency Response Attendant
DX: M41.86 Other forms of scoliosis, lumbar region (principal); M51.17 Intervertebral disc disorders with radiculopathy, lumbosacral region; M47.27 Other spondylosis with radiculopathy, lumbosacral region
CPT/HCPCS: 72110

== ENCOUNTER → 2020-04-08 14:00 | Outpatient (CLI) | payer MEDICARE, OTHER, SELFPAY ==
[2020-04-10 13:57] LABS: COVID19 Sendout Not Detected (Not Detect)
== END ==
PROVIDERS: PCP Student in an Organized Health Care Education/Training Program; Visit Provider Physician Assistant
DX: Z11.59 Encounter for screening for other viral diseases (principal)
CPT/HCPCS: 87635

== ENCOUNTER 2020-04-11 11:56 | Day surgery (SDC) | payer MEDICARE, OTHER, SELFPAY ==
[2020-04-11] VITALS (7 sets, daily range): BP systolic 87–133; BP diastolic 52–79; PULSE 50–69; RESP 11–18; TEMP 35.8–36.6; O2SAT 94–98; BMI 34.0
--- NOTE | 2020-04-11 11:50 | P.HP_ITS ---
History of Present Illness History of Present Illness Date Patient Seen: 04/11/20 Time Patient Seen: 11:51 Chief complaint: SDC Narrative: 69 year old female comes in today for consideration of a screening colonoscopy. Last colonoscopy in 2016, significant for a tubular adenoma at 70 cm. Prior to that, had 1 previous colonoscopy in approximately 2005, reportedly normal. At her 2016 colonoscopy, There was also sigmoid diverticulosis and small internal hemorrhoids. There have been no lower GI symptoms suggesting disease such as change in bowel habits, bleeding, abdominal pain or anemia. There's been no family history of colon cancer or colon polyps. Overall health issues have been stable, including no major cardiac events for at least 6 weeks. PCP: Dr. Mcdaniel Past medical history: Lumbar back pain radiculopathy Obesity Hypothyroidism Impaired fasting glucose osteoarthritis GERD Degenerative joint disease Neuropathy Risk for falls History of [place] Past Surgical History: Left hip replacement Right hip replacement 2009 Rt partial knee Left shoulder replacement 05/2019, Dr. 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 Alcohol drinks/day: <1/day >5/day in last 3 mos: no Caffeine use/day: 0 Type of Exercise: bicycle Exercise Times per Week: 4-5 Dental Care w/in 6 mos.: yes Sun Exposure: occasionally Fall Risk: no falls in past year Seat Belt Use: yes Smoking Status: never smoker Drug Use: never HIV High Risk Behavior: no Patient History Medical History (Updated 03/29/20 @ 12:39 by Sorin Arredondo DO) Breathing-related sleep disorder (Chronic) Fracture of neck of humerus (Acute) GI bleed (Acute) HNP (herniated nucleus pulposus) (Acute) Left leg pain (Acute) Lumbar radiculopathy, acute (Acute) Family & Social History Tobacco & Substance use: Smoking Status Never smoker Substance Use Type does not use Meds Home Medications and Allergies Home Medications Medication Instructions Recorded Confirmed Type levothyroxine 100 mcg capsule 75 mcg PO DAILY 03/03/19 04/11/20 History pantoprazole 40 mg tablet,delayed 20 mg PO BID 03/03/19 04/11/20 History release sotalol 80 mg tablet 80 mg PO BID 03/03/19 04/11/20 History aspirin [Aspirin Childrens] 162 mg PO BID 08/07/19 04/11/20 History atorvastatin 20 mg PO BEDTIME 04/11/20 04/11/20 History Allergies Allergy/AdvReac Type Severity Reaction Status Date / Time No Known Drug Allergies Allergy Verified 04/11/20 12:12 Review of Systems Review of Systems ROS: Yes All systems reviewed with the patient and are negative except as otherwise documented Exam Narrative Exam Narrative: GENERAL: Alert and oriented, appearing stated age and in no acute distress. HEENT: Head normocephalic/atraumatic. Pupils equal, round, and reactive to light and accomodation. Extraocular muscles intact. Tympanic membranes clear. Nasal mucosa moist, septum midline. Oral mucosa moist, no lesions. Neck soft and supple, no lymphadenopathy. LUNGS: Clear to ausculation bilaterally, no wheezes, rhonchi or rales. CV: Normal S1 and S2 with regular rate and rhythm, no audible murmurs, rubs or gallops. ABDOMEN: Soft, non-tender, non-distended, no organomegaly. Positive bowel sounds. EXTREMITIES: No clubbing, cyanosis, or edema. NEURO: Cranial nerves II through XII grossly intact, no focal deficits. PSYCH: Alert and oriented x 3. SKIN: No concerning lesions. Assessment & Plan Assessment & Plan narrative: 1. History of colon polyps 2. Screening for colon cancer Plan for colonoscopy. The nature and character of the procedure as well as anticipated results were discussed. The possibility of not completing the procedure was also discussed. Possible complications including aspiration pneumonia, bleeding, perforation and reaction to medications either for sedation or preparation and missed lesions were discussed. Questions were answered and proceeding to the colonoscopy was elected. Informed consent signed. I sincerely appreciate the referral allowing me to participate in this patient's care. Please contact me with any questions or concerns.
--- NOTE | 2020-04-11 11:57 | PM.OP.ENDO ---
Operative Date/Time/Diagnoses Date of procedure: 04/11/20 Procedure Notes SCOAP/Timeout: 1:09 pm Procedure in detail: ENDOSCOPIST: Ryanne Mcdaniel MD Sedation RN: Michelle Hatfield RN Sedation start time: 1:10 p.m. Sedation end time: 1:39 p.m. PROCEDURE: Colonoscopy INDICATIONS: 1. History of colon polyps 2. Screening for colon cancer MEDICATION: Levsin 0.125 mg sublingual, incremental doses of Versed and fentanyl until appropriate level sedation achieved. ASA CLASS: 2 CECAL WITHDRAWAL TIME: 6 minutes COMPLICATIONS: None. EXTENT OF PROCEDURE: Cecum. QUALITY OF PREP: Good with portions of liquid stool. PROCEDURE: Prior to insertion of the colonoscope, a digital rectal examination was accomplished with circumferential palpation of the distal rectal mucosa without significant findings being noted. The high-definition pediatric colonoscope was passed into the rectum in the usual fashion and advanced over to the cecum with some difficulty due to tortuosity of the sigmoid colon. The ileocecal valve, appendiceal stoma, and medial wall all could be inspected and no abnormalities were seen. ASCENDING COLON: As the colonoscope was withdrawn, care was taken to expose and inspect the haustral folds and no abnormalities were seen. HEPATIC FLEXURE: Normal no polyps, diverticula or other abnormalities. TRANSVERSE COLON: Normal no polyps, diverticula or other abnormalities. DESCENDING COLON: Moderate diverticulosis, otherwise normal, no polyps or other abnormalities. SIGMOID COLON: Moderate diverticulosis, otherwise normal, no polyps or other abnormalities. RECTUM: Normal. J maneuver was produced. There was proctitis likely secondary to the prep. The J maneuver was broken. The remainder of the rectum was inspected and there was no external hemorrhoid disease. The scope was withdrawn. IMPRESSION: 1. Normal colonoscopy 2. Proctitis 3. Left-sided diverticulosis, moderate PLAN: 1. Repeat colonoscopy in 5-10 years. Based on patient's age, this could be her last lifetime colonoscopy. The possibility of a missed lesion including a malignancy has been discussed with the patient previously. Potential alarm symptoms have been discussed and should be reported immediately.
[2020-04-11] MEDS: HYOSCYAMINE 0.125 MG TABLET PO (12:38)
[2020-04-11] MEDS: LACTATED RINGERS 1,000 ML 200 ML IV (12:38)
[2020-04-11] MEDS: MIDAZOLAM 5 MG/5 ML VIAL IV (13:10)
[2020-04-11] MEDS: fentaNYL 250 MCG/5 ML INJ IV (13:10)
== END 2020-04-11 14:40 | disposition home or self-care (01) ==
PROVIDERS: PCP Student in an Organized Health Care Education/Training Program; Referring Provider Student in an Organized Health Care Education/Training Program; Visit Provider Student in an Organized Health Care Education/Training Program
PROC: 0DJD8ZZ Inspection of Lower Intestinal Tract, Via Natural or Artificial Opening Endoscopic (ICD-10-PCS; CPT 45378; principal; 2020-04-11 13:00)
DX: Z12.11 Encounter for screening for malignant neoplasm of colon (principal); Z86.010 Personal history of colon polyps; K57.30 Diverticulosis of large intestine without perforation or abscess without bleeding; K62.89 Other specified diseases of anus and rectum
CPT/HCPCS: G0105; J2250; J3010

== ENCOUNTER → 2020-05-23 10:13 | Outpatient (CLI) | payer MEDICARE, OTHER, SELFPAY | PROVIDERS: PCP Student in an Organized Health Care Education/Training Program; Referring Provider Student in an Organized Health Care Education/Training Program; Visit Provider Student in an Organized Health Care Education/Training Program | DX: M85.832 Other specified disorders of bone density and structure, left forearm (principal); Z78.0 Asymptomatic menopausal state; E07.9 Disorder of thyroid, unspecified; M47.816 Spondylosis without myelopathy or radiculopathy, lumbar region; M41.9 Scoliosis, unspecified | CPT/HCPCS: 77080; 99215 ==

== ENCOUNTER → 2020-05-30 11:24 | Outpatient (CLI) | payer MEDICARE, OTHER, SELFPAY ==
[2020-05-30 14:15] LABS: COVID19 -Nasal RAPID Negative (Negative)
== END ==
PROVIDERS: PCP Student in an Organized Health Care Education/Training Program; Visit Provider Physician Assistant
DX: Z11.59 Encounter for screening for other viral diseases (principal)
CPT/HCPCS: 87635

== ENCOUNTER 2020-05-31 07:30 | Outpatient (CLI) | payer MEDICARE, OTHER, SELFPAY ==
[2020-05-31] VITALS (8 sets, daily range): BP systolic 105–152; BP diastolic 56–72; PULSE 59–66; RESP 12–22; O2SAT 94–100
--- NOTE | 2020-05-31 07:35 | DI.RAD.S_ITS ---
PROCEDURE: PAIN L/SI FACET INJ/BLK 1STL INDICATIONS: SPONDYLOSIS COMPARISON: [facility], CR, XR LUMBAR SPINE MIN 4V, 04/06/2020, 12:13. FINDINGS: Fluoroscopic spot filming was performed to verify placement of spinal needles at the L4-5 and L5-S1 levels on the left, as labeled on the films. Appropriate location(s) of the needle tip(s) was confirmed by injection of iodinated contrast. IMPRESSION: Intraprocedural examination within normal limits. Dictated by: Pieter Valdovinos M.D. on 05/31/2020 at 8:14 Approved by: Pieter Valdovinos M.D. on 05/31/2020 at 8:15
[2020-05-31] MEDS: fentaNYL 100 MCG/2 ML INJ 50 MCG IV (08:22)
[2020-05-31] MEDS: MIDAZOLAM 5 MG/5 ML VIAL IV (08:22)
[2020-05-31] MEDS: BETAMETHASONE 30 MG/5 ML MDV 12 MG INJ (08:28)
[2020-05-31] MEDS: IOPAMIDOL 15 ML VIAL 3 ML INJ (08:28)
[2020-05-31] MEDS: BUPIVACAINE 0.5% (PF) VIAL 2 ML INJ (08:28)
--- NOTE | 2020-05-31 08:33 | P.PCN_ITS ---
Date/Time/Diagnoses Date of procedure: 05/31/20 Time of procedure: 08:33 Pre-procedure diagnosis: 1. FACET ARTHROPATHY, 2. AXIAL LBP, 3. MULTILEVEL DDD Post-procedure diagnosis: same Procedure Notes Procedure: 1. FLUOROSCOPICALLY GUIDED CONTRAST CONTROLLED FACET JOINT INJECTIONS LEFT L4/5, L5/S1 Indications: Celsa is referred by Dr. Mcdaniel for treatment of Axial LBP Physician: Sorin Arredondo Total Fluoroscopy time (seconds): 5 Total sedation minutes: 8 Complications: none Procedure in detail & Post-procedure care: FINDINGS Multilevel Facet Arthropathy with Clinically significant axial LBP DESCRIPTION OF PROCEDURE Fluoroscopically guided, contrast-controlled left L4/5, L5/S1 facet joint injections. Following review of allergy and review of potential side effects and complications, including, but not necessarily limited to, infection, allergic reaction, local tissue breakdown, stroke, temporary or permanent nerve injury, paralysis, and possible , the patient indicated that the patient understood and agreed to proceed. An informed consent document was signed by the patient, witnessed by a nurse, and placed in the patient's chart. Additionally, other treatment options including medications, modalities, and physical therapy were reviewed with the patient. After review of previous anaesthesic history and IV conscious sedation the patient was deemed safe to proceed with today?s procedure with IV conscious sedation as ASA class II designation. Safety time-out was performed to confirm patient ID, procedure to be performed and site of procedure. IV sedation was accomplished with a combination of 2mg of Versed and 50mcg of Fentanylwas administered by the RN after DO order, titrated to patient comfort during the course of the procedure while the patient remained responsive to all verbal commands. In the prone position, following sterile prep and drape of the lumbar region, the posterior aspect of the left L4/5, L5/S1 facet joints were identified fluoroscopically. The skin was anesthetized via a 25-gauge 1.5-inch needle with 1% lidocaine solution into the corresponding facet joints. At this point, a 22- gauge 3.5-inch spinal needle was atraumatically introduced and advanced under fluoroscopic guidance into the corresponding facet joints. Following negative aspiration, injections of approximately 0.2-cc of Isovue 200 confirmed int erarticular placement without vascular uptake. Radiological data, including multiple fluoroscopic views of the lumbosacral spine, reveal a spinal needle at the left L4/5, L5/S1 facet joints. Subsequent views show flow of contrast material both superiorly and inferiorly within the joint space without vascular or intrathecal uptake. At this point, a total of 0.5 cc including a mixture of 0.25cc Marcaine and 0.25cc betamethasone was injected without complication into each of the corresponding facet joints. The procedure tolerated the procedure well without signs or symptoms of complications prior to transfer to the recovery area continued monitoring without incident. The patient was then transferred to the recovery area where they were observed for an appropriate period of time after the injection. The patient reported a VAS score of 7 prior to the procedure and a post-procedure VAS of 0. POST OP INSTRUCTIONS The patient was provided a Pain Log to continue to record their response to the target-specific procedure prior to follow-up visit with their referring physician. Additionally, specific post-injection care instructions and a contact number to our office were provided if concerns arise regarding possible complications associated with the procedure are suspected.
== END 2020-05-31 08:52 | disposition home or self-care (01) ==
LOC: RAD 07:33
PROVIDERS: PCP Student in an Organized Health Care Education/Training Program; Referring Provider Physical Medicine & Rehabilitation; Visit Provider Physical Medicine & Rehabilitation
DX: M47.816 Spondylosis without myelopathy or radiculopathy, lumbar region (principal); M47.817 Spondylosis without myelopathy or radiculopathy, lumbosacral region; M54.5 Low back pain; M51.36 Other intervertebral disc degeneration, lumbar region; M51.37 Other intervertebral disc degeneration, lumbosacral region
CPT/HCPCS: 64493; 64494; 99152; J0702; J2250; J3010

== ENCOUNTER → 2020-07-05 13:29 | Outpatient (CLI) | payer MEDICARE, OTHER, SELFPAY ==
[2020-07-05 15:35] LABS: COVID19 -Nasal RAPID Negative (Negative)
== END ==
PROVIDERS: PCP Student in an Organized Health Care Education/Training Program; Visit Provider Physical Medicine & Rehabilitation
DX: Z01.812 Encounter for preprocedural laboratory examination (principal); Z20.828 Contact with and (suspected) exposure to other viral communicable diseases
CPT/HCPCS: 87635; C9803

== ENCOUNTER 2020-07-07 12:28 | Outpatient (CLI) | payer MEDICARE, OTHER, SELFPAY ==
[2020-07-07] VITALS (9 sets, daily range): BP systolic 105–164; BP diastolic 55–90; PULSE 55–62; RESP 12–18; TEMP 36.6; O2SAT 94–99
--- NOTE | 2020-07-07 12:29 | DI.RAD.S_ITS ---
PROCEDURE: PAIN L/S FACET INJ/BLK 1ST AKUA COMPARISON: [facility], CR, XR LUMBAR SPINE MIN 4V, 04/06/2020, 12:13. [facility], MR, MR LUMBAR SPINE WO CON, 03/19/2020, 11:51. [facility], XA, PAIN L/SI FACET INJ/BLK 1STL, 05/31/2020, 8:24. INDICATIONS: Bilateral L4, L5 and S1 MBB FINDINGS: 6 intraoperative fluoroscopy images demonstrate needle placement at L4, L5 and S1 bilaterally. IMPRESSION: Fluoroscopy for pain management. Dictated by: Hernán Garza M.D. on 07/07/2020 at 13:40 Approved by: Hernán Garza M.D. on 07/07/2020 at 13:41
[2020-07-07] MEDS: fentaNYL 100 MCG/2 ML INJ 50 MCG IV (13:07)
[2020-07-07] MEDS: MIDAZOLAM 5 MG/5 ML VIAL IV (13:07)
[2020-07-07] MEDS: LIDOCAINE 1% 20 ML 10 ML INJ (13:12)
[2020-07-07] MEDS: BUPIVACAINE 0.5% (PF) VIAL 5 ML INJ (13:12)
[2020-07-07] MEDS: IOPAMIDOL 15 ML VIAL 3 ML INJ (13:13)
--- NOTE | 2020-07-07 13:30 | P.PCN_ITS ---
Date/Time/Diagnoses Date of procedure: 07/07/20 Time of procedure: 13:30 Pre-procedure diagnosis: 1. FACET ARTHROPATHY Post-procedure diagnosis: same Procedure Notes Procedure: 1. BILATERAL- L4, L5 and S1 DIAGNOSTIC MB BLOCKS with LA Anesthetic Indications: Celsa is referred by Dr. Mcdaniel for treatment of Bilateral Axial LBP. Physician: Sorin Arredondo Total Fluoroscopy time (seconds): 12 Total sedation minutes: 18 Complications: none Procedure in detail & Post-procedure care: DESCRIPTION OF PROCEDURE Fluoroscopically guided, contrast-controlled bilateral L4, L5 and S1 medial branch blocks with 0.5cc of 0.5% Marcaine. Following review of allergy and review of potential side effects and complications, including, but not necessarily limited to, infection, allergic reaction, local tissue breakdown, nerve injury, paralysis, stroke and possible , the patient indicated that the patient understood and agreed to proceed. An informed consent document was signed by the patient, witnessed by a nurse, and placed in the patient's chart. After review of previous anaesthesic history and IV conscious sedation the patient was deemed safe to proceed with today's procedure with IV conscious sedation as ASA class II designation. Safety time-out was performed to confirm patient ID, procedure to be performed and site of procedure. IV sedation was accomplished with a combination of 2mg of Versed and 50mcg of Fentanyl was administered by the RN after DO order, titrated to patient comfort during the course of the procedure while the patient remained responsive to all verbal commands In the prone position, following sterile prep and drape of the lumbar region, the right L4, L5 and S1 anatomical location of the medial branch of the dorsal ramus was identified fluoroscopically. Subsequently an anesthetic skin wheal using 1% lidocaine solution was initiated at each of the anatomical spots. Subsequently then a 22-gauge 3.5-inch spinal needle was atraumatically introduced and advanced under fluoroscopic guidance at each of the corresponding sites at the right L4, L5 and S1 MB. After negative aspiration, 0.2cc of Isovue 200 was injected, confirming placement without vascular or intrathecal uptake. Subsequently then 0.5cc of 0.5% Marcaine solution was injected at each of the corresponding sites at the right L4, L5 and S1 medial branch locations. The identical procedure was replicated on the left. The patient tolerated the procedure well without signs or symptoms of complications prior to transfer to the recovery area continued monitoring without incident. Post-procedure, the patient was monitored initiating provocative activities to measure the amount of relief from block of the facetogenic pain. The patient reported a VAS of 7 prior to the procedure and a post-procedure VAS of 1. It has been a pleasure to assist in the diagnostic and therapeutic care of your patient. POST OP INSTRUCTIONS The patient was provided with a Pain Log to complete over the next several hours and subsequent days prior to the patient's follow up with the ordering physician. If the patient has advisory application developer relief to the solution applied, then they may be a candidate for medial branch rhizotomy. The patient is aware, was provided, once again, with a Pain Log and will follow up with the referring physician for review and clinical correlation
== END 2020-07-07 13:40 | disposition home or self-care (01) ==
LOC: RAD 12:29
PROVIDERS: PCP Student in an Organized Health Care Education/Training Program; Referring Provider Physical Medicine & Rehabilitation; Visit Provider Physical Medicine & Rehabilitation
DX: M47.816 Spondylosis without myelopathy or radiculopathy, lumbar region (principal); M47.817 Spondylosis without myelopathy or radiculopathy, lumbosacral region; M54.5 Low back pain
CPT/HCPCS: 64493; 64494; 99152; J2250; J3010

== ENCOUNTER → 2020-08-09 14:28 | Outpatient (CLI) | payer MEDICARE, OTHER, SELFPAY ==
[2020-08-09 15:45] LABS: COVID19 -Nasal RAPID Negative (Negative)
== END ==
PROVIDERS: PCP Student in an Organized Health Care Education/Training Program; Referring Provider Physical Medicine & Rehabilitation; Visit Provider Physical Medicine & Rehabilitation
DX: Z01.812 Encounter for preprocedural laboratory examination (principal); Z20.822 Contact with and (suspected) exposure to COVID-19
CPT/HCPCS: 87635; C9803

== ENCOUNTER 2020-08-11 13:44 | Outpatient (CLI) | payer MEDICARE, OTHER, SELFPAY ==
[2020-08-11] VITALS (10 sets, daily range): BP systolic 90–153; BP diastolic 45–73; PULSE 56–64; RESP 12–18; TEMP 36.3; O2SAT 95–100
--- NOTE | 2020-08-11 13:47 | DI.RAD.S_ITS ---
PROCEDURE: PAIN L INTERLAMINAR/CAUDAL INJ INDICATIONS: SPONDYLOSIS COMPARISON: [facility], XA, PAIN L/S FACET INJ/BLK 1ST AKUA, 07/07/2020, 13:11. [facility], XA, PAIN L/SI FACET INJ/BLK 1STL, 05/31/2020, 8:24. FINDINGS: Fluoroscopic spot filming was performed to verify placement of a spinal needle at the L5-S1 level, as labeled on the films. Appropriate location of the needle tip was confirmed by injection of iodinated contrast. IMPRESSION: No significant intraprocedural abnormality. Dictated by: Pieter Valdovinos M.D. on 08/11/2020 at 14:05 Approved by: Pieter Valdovinos M.D. on 08/11/2020 at 14:07
[2020-08-11] MEDS: fentaNYL 100 MCG/2 ML INJ 50 MCG IV (14:30)
[2020-08-11] MEDS: MIDAZOLAM 5 MG/5 ML VIAL IV (14:35)
[2020-08-11] MEDS: IOPAMIDOL 15 ML VIAL 3 ML INJ (14:37)
[2020-08-11] MEDS: BUPIVACAINE 0.25% (PF) VIAL 2 ML INJ (14:38)
[2020-08-11] MEDS: DEXAMETHASONE 10 MG/ML VIAL 20 MG INJ (14:38)
[2020-08-11] MEDS: BETAMETHASONE 30 MG/5 ML MDV 6 MG INJ (14:38)
--- NOTE | 2020-08-11 14:42 | P.PCN_ITS ---
Date/Time/Diagnoses Date of procedure: 08/11/20 Time of procedure: 14:42 Pre-procedure diagnosis: 1. HNP WITH RADICULAR FEATURES, 2. MULTILEVEL CENTRAL STENOSIS, Post-procedure diagnosis: same Procedure Notes Procedure: 1. FLUOROSCOPICALLY GUIDED CONTRAST CONTROLLED INTERLAMINAR EPIDURAL STEROID INJECTION - PARA LEFT L5/S1 Indications: Celsa is referred by Dr. Mcdaniel for treatment of Bilateral Foraminal Stenosis L>R LE symptoms. Physician: Sorin Arredondo Total Fluoroscopy time (seconds): 9 Total sedation minutes: 9 Complications: none Procedure in detail & Post-procedure care: FINDINGS Multilevel Central Spinal Stenosis with Nerve Root Compression DESCRIPTION OF PROCEDURE Fluoroscopically guided, contrast-controlled L5/S1 translaminar epidural steroid injection. Following review of allergy and review of potential side effects and complications, including, but not necessarily limited to, infection, allergic reaction, local tissue breakdown, temporary as well as permanent nerve injury, paralysis, stroke and possible , the patient indicated that the patient understood and agreed to proceed. An informed consent document was signed by the patient, witnessed by a nurse, and placed in the patient's chart. Additionally, other treatment options including modalities, medications, and physical therapy were reviewed with the patient. After review of previous anaesthesic history and IV conscious sedation the patient was deemed safe to proceed with today?s procedure with IV conscious sedation as ASA class II designation. Safety time-out was performed to confirm patient ID, procedure to be performed and site of procedure. IV sedation was accomplished with a combination of 3mg of Versed and 50mcg of Fentanyl administered by the RN after DO order, titrated to patient comfort during the course of the procedure while the patient remained responsive to all verbal commands. In the prone position, following sterile prep and drape of the lumbar region, the L5/S1 translaminar space was identified fluoroscopically. The skin was anesthetized via a 25-gauge, 1.5-inch needle with 1% lidocaine solution. At this point, a 22-gauge short bevel spinal needle was atraumatically introduced and advanced under fluoroscopic guidance into the region of the L5/S1 translaminar space. Depth was confirmed on lateral view. Radiological data, including multiple fluoroscopic views of the lumbar spine, reveal a spinal needle at the L5/S1 translaminar space. Lateral views then show placement of the needle in the epidural space. Subsequent views show contrast material flowing superiorly and inferiorly in the epidural space. No vascular or intrathecal uptake is observed. At this point, using loss of resistance technique with saline and air, the epidu ral space was entered. This was confirmed following negative aspiration with injection of approximately 1.5cc of Isovue 200, showing excellent epidural flow without vascular or intrathecal uptake. At this point, 1 cc of 1% lidocaine solution combined with 3cc or 20mg of dexamethasone and 6mg of betamethasone was injected without incident. The patent tolerated the procedure without signs of symptoms of complications prior to transfer to the recovery area for further monitoring. The patient was then transferred to the recovery area where they were observed for an appropriate period of time after the injection. The patient reported a VAS score of 6 prior to the procedure and a post-procedure VAS of 0. POST OP INSTRUCTIONS The patient was provided a Pain Log to continue to record their response to the target-specific procedure prior to follow-up visit with their referring physician. Additionally, specific post-injection care instructions and a contact number to our office were provided if concerns arise regarding possible complications associated with the procedure are suspected.
== END 2020-08-11 15:20 | disposition home or self-care (01) ==
LOC: RAD 13:46
PROVIDERS: PCP Student in an Organized Health Care Education/Training Program; Referring Provider Student in an Organized Health Care Education/Training Program; Visit Provider Physical Medicine & Rehabilitation
DX: M48.062 Spinal stenosis, lumbar region with neurogenic claudication (principal); M47.817 Spondylosis without myelopathy or radiculopathy, lumbosacral region
CPT/HCPCS: 62323; J0702; J1100; J2250; J3010

== ENCOUNTER → 2020-11-29 10:51 | Outpatient (CLI) | payer MEDICARE, OTHER, SELFPAY ==
[2020-11-29 11:03] LABS: Bacteria Urine None Seen
[2020-11-29 12:07] LABS: Appearance Urine UA CLEAR; Bilirubin Urine UA NEGATIVE (NEGATIVE); Color Urine UA YELLOW; Glucose Urine UA NEGATIVE (Negative); Ketones Urine UA NEGATIVE (NEGATIVE); Leukocyte Esterase Urine UA NEGATIVE (NEGATIVE); Nitrite Urine UA NEGATIVE (Negative); Occult Blood Urine UA TRACE-LYSED (Negative); Protein Urine UA NEGATIVE (Negative); Specific Gravity Urine UA 1.025 (1.000-1.035); Urobilinogen Urine UA 0.2 E.U./dL (0.2)
[2020-11-29 12:35] LABS: Culture Indicated Urine Cult Not Indicated; RBC Urine 0-1/HPF (0-5/HPF); Squamous Epithelial Cell Urine 0-1 /HPF (0-5/HPF); WBC Urine 0-1/HPF (0-5/HPF)
== END ==
PROVIDERS: PCP Student in an Organized Health Care Education/Training Program; Referring Provider Neurological Surgery; Visit Provider Neurological Surgery
DX: Z01.812 Encounter for preprocedural laboratory examination (principal); M48.062 Spinal stenosis, lumbar region with neurogenic claudication
CPT/HCPCS: 36415; 81001

== ENCOUNTER → 2021-01-30 14:16 | Outpatient (CLI) | payer MEDICARE, OTHER, SELFPAY ==
--- NOTE | 2021-01-30 14:22 | DI.RAD.S_ITS ---
PROCEDURE: XR LUMBAR SPINE 1V INDICATIONS: Back Pain post surgery TECHNIQUE: Single lateral view of the lumbar spine was obtained COMPARISON: [facility], CR, XR LUMBAR SPINE MIN 4V, 04/06/2020, 12:13. FINDINGS: Bones: There has been interval placement of L4-5 interspinous spacer instrumentation. Persistent L4-5 anterior grade 1 spondylolisthesis present. Hypertrophic facet joints and disc space narrowing noted throughout the exam Soft tissues: Overlying bowel gas pattern is normal. No suspicious soft tissue calcifications. IMPRESSION: L4-[address]. Stable degenerative disc disease and arthropathy noted throughout the exam Grade 1 L4-5 anterior spondylolisthesis Dictated by: Estevan More M.D. on 01/30/2021 at 15:03 Approved by: Estevan More M.D. on 01/30/2021 at 15:39
== END ==
PROVIDERS: PCP Student in an Organized Health Care Education/Training Program; Referring Provider Neurological Surgery; Visit Provider Neurological Surgery
DX: M43.16 Spondylolisthesis, lumbar region (principal); M48.062 Spinal stenosis, lumbar region with neurogenic claudication; M51.36 Other intervertebral disc degeneration, lumbar region; M47.816 Spondylosis without myelopathy or radiculopathy, lumbar region; Z98.1 Arthrodesis status
CPT/HCPCS: 72020

== ENCOUNTER → 2021-04-04 15:24 | Outpatient (CLI) | payer MEDICARE, OTHER, SELFPAY ==
--- NOTE | 2021-04-04 | DI.MG.S_ITS ---
BILATERAL DIGITAL SCREENING MAMMOGRAM 3D/2D WITH CAD: 04/04/2021 CLINICAL: Routine screening. Family history of breast cancer. Comparison is made to exams dated: 02/29/2020 mammogram, 12/19/2018 mammogram, and 12/18/2017 mammogram - [facility]. There are scattered fibroglandular elements in both breasts. Current study was also evaluated with a Computer Aided Detection (CAD) system. There are benign calcifications in both breasts. No significant masses, calcifications, or other findings are seen in either breast. There has been no significant interval change. IMPRESSION: BENIGN There is no mammographic evidence of malignancy. A 1 year screening mammogram is recommended. This exam was interpreted at Station ID: [id number]. NOTE: For mammograms, a report in lay terms will be sent to the patient. Approximately 15% of breast malignancies will not be visualized mammographically. In the management of a palpable breast mass, a negative mammogram must not discourage biopsy of a clinically suspicious lesion. Electronically Signed By: Isrrael schwartz/kristopher:04/04/2021 15:57:28 letter sent: Normal Exam ACR BI-RADS Category 2: Benign Finding(s) [id number]
== END ==
PROVIDERS: PCP Student in an Organized Health Care Education/Training Program; Referring Provider Student in an Organized Health Care Education/Training Program; Visit Provider Student in an Organized Health Care Education/Training Program
DX: Z12.31 Encounter for screening mammogram for malignant neoplasm of breast (principal)
CPT/HCPCS: 77063; 77067

== ENCOUNTER 2021-04-25 15:46 | Emergency (ER) | payer MEDICARE, OTHER, SELFPAY ==
[2021-04-25] VITALS (9 sets, daily range): BP systolic 145–197; BP diastolic 65–97; PULSE 62–72; RESP 14–17; TEMP 36.5; O2SAT 96–99; BMI 34.0
--- NOTE | 2021-04-25 15:53 | DI.RAD.S_ITS ---
PROCEDURE: XR CHEST 1V INDICATIONS: Chest pain TECHNIQUE: One view of the chest was acquired. COMPARISON: [facility], CR, XR CHEST 1V, 08/07/2019, 21:54. FINDINGS: Surgical changes and devices: None. Lungs and pleura: Lungs are clear. No pleural effusions or pneumothorax. Mediastinum: Mediastinal contours appear normal. Heart size is normal. Bones and chest wall: No suspicious bony lesions. Overlying soft tissues appear unremarkable. IMPRESSION: No acute cardiopulmonary process demonstrated radiographically. Dictated by: Juan Carlos cMcain M.D. on 04/25/2021 at 16:28 Approved by: Juan Carlos Mccain M.D. on 04/25/2021 at 16:28
--- NOTE | 2021-04-25 16:13 | ED_ITS ---
HPI - Chest Pain General Chief Complaint: Chest Pain Stated Complaint: chest pain, indigestion Time Seen by Provider: 04/25/21 16:13 History of Present Illness HPI narrative: 71-year-old female nonsmoker with history coronary artery disease status post NSTEMI (Jul 2019) presents with her in the chief complaint of a relatively sudden onset epigastric pain with radiation to her back at about noon today. She states that she has a nauseous taste in the back of her throat and her symptoms seem to worsen when she lies flat. She denies associated symptoms such as dizziness, weakness or lightheadedness. She denies any significant fatigue. She has had no chest pain. She denies other provocation, palliation or radiation. She states that her symptoms started about an hour aft er she had a rather late breakfast followed by some [employer]re[employer] Related Data Home Medications Medication Instructions Recorded Confirmed levothyroxine 100 mcg capsule 75 mcg PO DAILY 03/03/19 09/19/20 pantoprazole 40 mg tablet,delayed 20 mg PO BID 03/03/19 09/19/20 release sotalol 80 mg tablet 80 mg PO BID 03/03/19 09/19/20 aspirin 81 mg chewable tablet 162 mg PO BID 08/07/19 09/19/20 (Aspirin Childrens) atorvastatin 20 mg tablet 40 mg PO BEDTIME tab 05/23/20 09/19/20 acetaminophen 500 mg tablet 1,000 mg PO Q6H PRN 06/27/20 09/19/20 (Tylenol Extra Strength) Previous Rx's Medication Instructions Recorded gabapentin 300 mg capsule 300 mg PO .COMPLEX #90 cap 07/19/20 Allergies Allergy/AdvReac Type Severity Reaction Status Date / Time No Known Drug Allergies Allergy Verified 09/19/20 14:56 Review of Systems Review of Systems Narrative: GENERAL: Denies chills, fatigue, malaise, fever, sweats. HEENT: Denies sinus pain, ear pain, sore throat, difficulty swallowing, dizziness. RESPIRATORY: Denies dyspnea, cough, wheezing, hemoptysis, sputum. CARDIOVASCULAR: See HPI GASTROINTESTINAL: See HPI : Denies dysuria, frequency, incontinence, hematuria, urinary retention. MUSCULOSKELETAL: denies weakness, joint pain, or bony pain SKIN: Denies rash, skin lesions, or other NEUROLOGIC: Denies weakness, headache, numbness, change in speech, confusion, seizures, incoordination. PSYCHIATRIC: No concerning psychosocial issues. 12 point review of systems is negative except for those stated above Patient History Medical History Breathing-related sleep disorder Facet arthropathy, lumbar Fracture of neck of humerus GI bleed HNP (herniated nucleus pulposus) Left leg pain Lumbar radiculopathy, acute Myocardial infarct Scoliosis Spinal stenosis Spinal stenosis, lumbar region with neurogenic claudication Surgical History H/O right knee surgery History of left hip replacement History of left shoulder replacement History of right hip replacement Family History Mother Cancer Social History household members: spouse Smoking Status: Never smoker alcohol intake: current Smoking Status: Never smoker alcohol intake frequency: a few times a month Substance Use Type: does not use Exam Narrative Exam Narrative: GENERAL: [71 year old patient appears stated age. Well-developed patient, in mild distress. HEAD: Atraumatic. Normocephalic. EYES: Pupils equal round and reactive. Extraocular motions intact. No scleral icterus. No injection or drainage. ENT: Nose without bleeding, purulent drainage. Throat without erythema, tonsillar hypertrophy or exudate. Airway patent. NECK: Trachea midline. Non tender CARDIOVASCULAR: Regular rate and rhythm without murmurs, gallops, or rubs. RESPIRATORY: Clear to auscultation. Breath sounds equal bilaterally. No wheezes, rales, or rhonchi. GASTROINTESTINAL: Abdomen soft, non-tender, nondistended. EXTREMITIES: No edema or joint tenderness. BACK: Nontender without deformity or crepitance. No flank tenderness. NEURO: AOx3. SKIN: No rash or erythema of visible areas Initial Vital Signs Initial Vital Signs: Vital Signs Temperature 97.7 F 04/25/21 15:48 Pulse Rate 68 04/25/21 15:48 Respiratory Rate 16 04/25/21 15:48 Blood Pressure 190/94 H 04/25/21 15:48 Pulse Oximetry 99 04/25/21 15:48 Course Orders Ordered: ED Orders 04/25/21 15:52 EKG-12 Lead Stat 04/25/21 15:53 XR chest 1V Stat 04/25/21 16:15 Complete Blood Count AUTO DIFF Stat Comprehensive Metabolic Panel Stat Lipase Stat Magnesium Stat Partial Thromboplastin Time Stat Prothrombin Time INR Stat Troponin & CK Cardiac Panel Stat 04/25/21 16:38 US abdomen limited Stat Discontinued Medications Al Hydrox/Mg Hydrox/Simethicone 20 ml/ Lidocaine HCl 15 ml 0 ml PO NOW ONE Stop: 04/25/21 16:39 Last Admin: 04/25/21 16:48 Dose: 35 ml Documented by: SE Pantoprazole Sodium (Pantoprazole 40 Mg Vial) 40 mg IV NOW ONE Stop: 04/25/21 16:39 Last Admin: 04/25/21 16:47 Dose: 40 mg Documented by: SE Reevaluation(s) Reevaluation #1: significant improvement after above stated therapies Consultations Consultation #1: discussed case with Dr. Pereyra, recommends close follow up, PPI, clear liquids, return precautions Vital Signs Vital signs: Vital Signs - 8 hr 04/25/21 15:48 04/25/21 16:09 04/25/21 16:10 Temperature 97.7 F Pulse Rate 68 69 71 Respiratory Rate 16 16 17 Blood Pressure 190/94 H 197/97 H Pulse Oximetry 99 98 98 04/25/21 16:30 04/25/21 16:31 04/25/21 17:00 Temperature Pulse Rate 71 72 64 Respiratory Rate 17 Blood Pressure 177/85 H 182/82 H Pulse Oximetry 99 99 99 04/25/21 17:37 04/25/21 17:38 04/25/21 18:00 Temperature Pulse Rate 63 62 63 Respiratory Rate 14 Blood Pressure 145/65 H Pulse Oximetry 96 98 97 MDM - Chest Pain Lab Data Result diagrams: 04/25/21 16:15 04/25/21 16:15 Labs: Lab Results 04/25/21 04/25/21 04/25/21 Range/Units 16:15 16:15 16:15 WBC 5.1 (4.5-11.0) X10^3/uL RBC 4.19 (4.0-5.2) X10^6/uL Hgb 10.6 L (12.0-16.0) g/dL Hct 34.1 L (36-46) % MCV 81.3 (80-100) fL MCH 25.3 L (26-34) PG MCHC 31.1 (30-36) % RDW 16.3 H (11.6-14.8) % Plt Count 237 (150-400) X10^3/uL Neut % (Auto) 47.6 L (50-75) % Lymph % (Auto) 33.3 (25-40) % [place] % (Auto) 14.1 H (3-14) % Eos % (Auto) 3.9 (2-4) % Baso % (Auto) 1.1 (0-2) % Neut # (Auto) 2400 (1619-8579) /uL Lymph # (Auto) 1700 (9396-4349) /uL [place] # (Auto) 700 (0-900) /uL Eos # (Auto) 200 (0-450) /uL Baso # (Auto) 100 (0-100) /uL PT 12.2 (10.1-12.7) SECONDS INR 1.1 (0.9-1.3) APTT 28 (26.4-36.2) SECONDS Sodium 141 (137-145) mmol/L Potassium 3.7 (3.4-5.1) mmol/L Chloride 105 (98-107) mmol/L Carbon Dioxide 31 (22-32) mmol/L BUN 16 (7-17) mg/dL Creatinine 0.66 (0.52-1.04) mg/dL Estimated GFR > 60.0 (>60) mL/min BUN/Creatinine Ratio 24.2 H (6-22) Glucose 109 (80-110) mg/dL Calcium 9.5 (8.4-10.2) mg/dL Magnesium 1.9 (1.6-2.3) mg/dL Total Bilirubin 0.5 (0.2-1.3) mg/dL AST 49 H (14-36) IU/L ALT 35 H (<35) IU/L Alkaline Phosphatase 67 (38-126) U/L Total Creatine Kinase 93 (30-135) U/L CK-MB (CK-2) TNP CK-MB (CK-2) Rel Index TNP Troponin I < 0.012 (0.01-0.034) ng/mL Total Protein 7.4 (6.3-8.2) g/dL Albumin 4.2 (3.5-5.0) g/dL Globulin 3.2 (1.7-4.1) g/dL Albumin/Globulin Ratio 1.3 (1.0-2.8) Lipase 108 (23-300) U/L Urine Dip Bedside Urine Glucose Negative Bedside Urine Bilirubin - Negative Bedside Urine Ketone - Negative Urine Specific [place] 1.015 Bedside Urine Occult Blood - Negative Bedside Urine pH 6.0 Bedside Urine Protein - Negative Bedside Urine Urobilinogen - Negative Bedside Urine Nitrite - Negative Bedside Urine Leukocytes - Negative Esterase Imaging Data US - abdomen: Radiologist's Impression: Celsa Flores??71??F??1950 ? Allergy/Adv: No Known Drug Allergies Close Abdomen Ultrasound (Signed) Juan Forte - 04/25/21 Chest X-Ray (Signed) Juan Carlos Mccain - 04/25/21 Mammogram Screening (Signed) Isrrael Claudio - 04/04/21 Lumbar Spine X-Ray (Signed) Estevan More - 01/30/21 Lumbar Spine X-Ray (Cancelled) 01/30/21 Injection Lumbar, Sacrum (Signed) Pieter Valdovinos - 08/11/20 Facet Joint Injection X-Ray (Signed) Claude Garza - 07/07/20 Facet Joint Injection X-Ray (Signed) Taylor Valdovinose - 05/31/20 Bone Densitometry 05/23/20 Telemetry Strips 04/11/20 Lumbar Spine X-Ray (Signed) Oj Conde - 04/06/20 Lumbar Spine MRI (Signed) Lesley Barrera - 03/19/20 Mammogram Screening (Signed) Juan Carlos Mccain - 02/29/20 Chest X-Ray (Signed) Aaron Mcmanus - 08/07/19 Mammogram Screening (Signed) Isrrael Claudio - 12/19/18 Toe X-Ray (Signed) Eduar Cordero - 10/06/18 Chest X-Ray (Signed) Raeann Aguero - 02/07/18 Mammogram Screening (Signed) Aditya Lombardo - 12/18/17 Launch?[address] [address] Ultrasound Report Signed Patient: Celsa Flores MR#: [id number] : 1950 Acct:[id number] Age/Sex: 71 / F Date of Service: 04/25/21 Loc: ED Accession Number: [id number] ?? Procedure: US abdomen limited Ordering Provider: Eligio Mariee D.O. PROCEDURE:? US ABDOMEN LIMITED ? INDICATIONS:? EPIGASTRIC PAIN RADIATES TO BACK ? TECHNIQUE:? Real-time scanning was performed of the abdominal and retroperitoneal organs, with image documentation.? ? COMPARISON:? None. ? FINDINGS:? ? Liver:? Liver is normal in size and homogeneous in echotexture.? ? Gallbladder:? The gallbladder is mildly distended with layering sludge posteriorly.? No radiopaque gallstone is seen.? There gallbladder wall is borderline in thickness at 3 mm. ?There is questionable trace pericholecystic fluid.? Sonographic Brower sign is negative. ? Biliary ducts:? Intrahepatic bile ducts are non-dilated.? Extrahepatic bile duct caliber measures 4 mm.? Normal is 6-7 mm or less in diameter, or 10 mm or less post-cholecystectomy.? ? Pancreas:? Visualized portions of the pancreas are sonographically normal.? ? IMPRESSION:? Mildly distended gallbladder with layering sludge and possible trace pericholecystic fluid.? No gallstones.? Sonographic Brower sign is negative.? Findings are equivocal, and correlation with clinical and laboratory findings is recommended.? ? ? Dictated by: Juan Forte M.D. on 04/25/2021 at 17:49 ? ? Approved by: Juan Forte M.D. on 04/25/2021 at 17:53 ? ECG Data Interpretation: EKG is normal sinus rhythm rate [71 ] and free of any signs of ischemia or ectopy. No ST segmental elevation or depression. No T wave inversions MDM Narrative Medical decision making narrative: 71-year-old female with epigastric pain that radiates to the back after eating. No cardiac equivalent such as dizziness, weakness, lightheadedness or fatigue though cardiac ischemia considered. EKG is nonocclusive and troponin is unremarkable. Labs are from many hours after the onset of her symptoms which had been constant. Symptoms greatly improved with above-stated therapies. No significant findings in labs, ultrasound suggests early and mild gallbladder disease. Peptic ulcer disease and reflux also considered. Patient given extensive return precautions and questions have been answered to her apparent satisfaction Discharge Plan Departure Patient Disposition: Home Clinical Impression: Epigastric abdominal pain, Disease of gallbladder Instructions: DI for Epigastric Pain Activity Restrictions/Additional Instructions: *You have been diagnosed with [epigastric pain likely early gallbladder disease. Labs are very reassuring and ultrasound shows subtle suggestion of gallbladder problem *What to do: *Please continue to take your regular medications as directed. [ ] New medication prescriptions sent to your pharmacy: [ ] [ ] New medication written as a paper prescription [x ] No new medications given *Please follow up with your primary care provider in 2-3 days, call for an appointment. Let them know you were seen in the Emergency Department and that we ask that you be seen in follow up. We will electronically transmit a record of today's note if your PCP is in our system * I have discussed her case with on-call general surgeon (Dr. Pereyra) who would like to see you in the office. He agrees with the dietary plan that you and I discussed which include clear liquids for 24-48 hours followed by avoidance of alcohol, spicy foods, acidic foods and fatty foods. *If you do not have a primary care provider please contact the [facility] Resource line at [phone]. They will ask some questions about your medical history and help get you set up with a doctor in the community. *Return to Emergency Department if you should have any new, worsening or concerning symptoms, such as [fever greater than 101 F, shaking chills, worsening pain, persistent vomiting or other bothersome symptoms] Prescriptions: No Action aspirin [Aspirin Childrens] 81 mg Tablet,Chewable 162 mg PO BID RF: 0 atorvastatin 20 mg tablet 40 mg PO BEDTIME RF: 0 acetaminophen [Tylenol Extra Strength] 500 mg tablet 1,000 mg PO Q6H PRN (Reason: Pain (Scale Score 1-3)) RF: 0 gabapentin 300 mg capsule 300 mg PO .COMPLEX Qty: 90 RF: 2 sotalol 80 mg tablet 80 mg PO BID RF: 0 levothyroxine 100 mcg capsule 75 mcg PO DAILY RF: 0 pantoprazole 40 mg tablet,delayed release (DR/EC) 20 mg PO BID RF: 0 Referrals: Ryanne Mcdaniel MD [Primary Care Provider] - Chalino Pereyra MD [Physician] -
[2021-04-25 16:22] LABS: Add Manual Diff / Slide Review NO; Basophils Absolute Auto 100 /uL (0-100); Basophils Percent Auto 1.1 % (0-2); Eosinophils Absolute Auto 200 /uL (0-450); Eosinophils Percent Auto 3.9 % (2-4); Hematocrit 34.1 % (36-46); Hemoglobin 10.6 g/dL (12.0-16.0); Lymphocytes Absolute Auto 1700 /uL (1100-4500); Lymphocytes Percent Auto 33.3 % (25-40); Mean Corpuscular HGB Conc 31.1 % (30-36); Mean Corpuscular Hemoglobin 25.3 PG (26-34); Mean Corpuscular Volume 81.3 fL (80-100); Monocytes Absolute Auto 700 /uL (0-900); Monocytes Percent Auto 14.1 % (3-14); Neutrophils Absolute Auto 2400 /uL (1500-7000); Neutrophils Percent Auto 47.6 % (50-75); Platelet Count 237 X10^3/uL (150-400); Red Blood Cell Count 4.19 X10^6/uL (4.0-5.2); Red Cell Distribution Width 16.3 % (11.6-14.8); White Blood Cell Count 5.1 X10^3/uL (4.5-11.0)
--- NOTE | 2021-04-25 16:38 | DI.US.S_ITS ---
PROCEDURE: US ABDOMEN LIMITED INDICATIONS: EPIGASTRIC PAIN RADIATES TO BACK TECHNIQUE: Real-time scanning was performed of the abdominal and retroperitoneal organs, with image documentation. COMPARISON: None. FINDINGS: Liver: Liver is normal in size and homogeneous in echotexture. Gallbladder: The gallbladder is mildly distended with layering sludge posteriorly. No radiopaque gallstone is seen. There gallbladder wall is borderline in thickness at 3 mm. There is questionable trace pericholecystic fluid. Sonographic Brower sign is negative. Biliary ducts: Intrahepatic bile ducts are non-dilated. Extrahepatic bile duct caliber measures 4 mm. Normal is 6-7 mm or less in diameter, or 10 mm or less post-cholecystectomy. Pancreas: Visualized portions of the pancreas are sonographically normal. IMPRESSION: Mildly distended gallbladder with layering sludge and possible trace pericholecystic fluid. No gallstones. Sonographic Brower sign is negative. Findings are equivocal, and correlation with clinical and laboratory findings is recommended. Dictated by: Juan Forte M.D. on 04/25/2021 at 17:49 Approved by: Juan Forte M.D. on 04/25/2021 at 17:53
[2021-04-25 16:39] LABS: INR 1.1 (0.9-1.3); Prothrombin Time 12.2 SECONDS (10.1-12.7)
[2021-04-25 16:42] LABS: PTT Partial Thromboplastin Tim 28 SECONDS (26.4-36.2)
[2021-04-25 16:44] LABS: Alanine Aminotransferase 35 IU/L (<35); Albumin 4.2 g/dL (3.5-5.0); Albumin Globulin Ratio 1.3 (1.0-2.8); Alkaline Phosphatase 67 U/L (38-126); Aspartate Aminotransferase 49 IU/L (14-36); BUN Creatinine Ratio 24.2 (6-22); Bilirubin Total 0.5 mg/dL (0.2-1.3); Blood Urea Nitrogen 16 mg/dL (7-17); Calcium 9.5 mg/dL (8.4-10.2); Carbon Dioxide 31 mmol/L (22-32); Chloride 105 mmol/L (98-107); Creatine Kinase 93 U/L (30-135); Estimated Glomerular Filt Rate > 60.0 mL/min (>60); Globulin 3.2 g/dL (1.7-4.1); Glucose 109 mg/dL (80-110); HEMOLYSIS < 15 (0-50); Lipase 108 U/L (23-300); Magnesium 1.9 mg/dL (1.6-2.3); Potassium 3.7 mmol/L (3.4-5.1); Sodium 141 mmol/L (137-145); Total Protein 7.4 g/dL (6.3-8.2)
[2021-04-25] MEDS: PANTOPRAZOLE 40 MG VIAL IV (16:47)
[2021-04-25] MEDS: MAG HYDROX/ALUMINUM/SIMETH SUS 20 ML, LIDOCAINE VISCOUS 2% 15 ML PO (16:48)
[2021-04-25 16:56] LABS: Troponin I < 0.012 ng/mL (0.01-0.034)
== END 2021-04-25 18:47 | disposition home or self-care (01) ==
PROVIDERS: Emergency Provider Emergency Medicine; PCP Student in an Organized Health Care Education/Training Program
DX: R10.13 Epigastric pain (principal); K82.9 Disease of gallbladder, unspecified
CPT/HCPCS: 36415; 71045; 76705; 80053; 81003; 82550; 83690; 83735; 84484; 85025; 85610; 85730; 93005; 96374; 99284; C9113

== ENCOUNTER → 2021-06-30 14:21 | Outpatient (CLI) | payer MEDICARE, OTHER, SELFPAY ==
[2021-06-30 14:58] LABS: Add Manual Diff / Slide Review NO; Basophils Absolute Auto 100 /uL (0-100); Basophils Percent Auto 1.3 % (0-2); Eosinophils Absolute Auto 200 /uL (0-450); Eosinophils Percent Auto 3.3 % (2-4); Hematocrit 32.3 % (36-46); Hemoglobin 10.2 g/dL (12.0-16.0); Lymphocytes Absolute Auto 1800 /uL (1100-4500); Lymphocytes Percent Auto 34.4 % (25-40); Mean Corpuscular HGB Conc 31.5 % (30-36); Mean Corpuscular Hemoglobin 25.8 PG (26-34); Mean Corpuscular Volume 81.8 fL (80-100); Monocytes Absolute Auto 800 /uL (0-900); Monocytes Percent Auto 14.8 % (3-14); Neutrophils Absolute Auto 2400 /uL (1500-7000); Neutrophils Percent Auto 46.2 % (50-75); Platelet Count 277 X10^3/uL (150-400); Red Blood Cell Count 3.95 X10^6/uL (4.0-5.2); Red Cell Distribution Width 16.4 % (11.6-14.8); White Blood Cell Count 5.2 X10^3/uL (4.5-11.0)
[2021-06-30 15:13] LABS: Hemoglobin A1C% w Est Avg Glu 5.5 % (4.0-6.0)
[2021-06-30 16:20] LABS: BUN Creatinine Ratio 20.2 (6-22); Blood Urea Nitrogen 17 mg/dL (7-17); Calcium 9.6 mg/dL (8.4-10.2); Carbon Dioxide 28 mmol/L (22-32); Chloride 108 mmol/L (98-107); Estimated Glomerular Filt Rate > 60.0 mL/min (>60); Glucose 99 mg/dL (80-110); HEMOLYSIS < 15 (0-50); Sodium 139 mmol/L (137-145)
== END ==
PROVIDERS: PCP Student in an Organized Health Care Education/Training Program; Referring Provider Orthopaedic Surgery; Visit Provider Orthopaedic Surgery
DX: Z01.818 Encounter for other preprocedural examination (principal); R73.9 Hyperglycemia, unspecified; Z01.812 Encounter for preprocedural laboratory examination
CPT/HCPCS: 36415; 80048; 83036; 85025; 93005; 93010

== ENCOUNTER → 2021-07-03 14:50 | Outpatient (CLI) | payer MEDICARE, OTHER, SELFPAY ==
--- NOTE | 2021-07-03 | DI.RAD.S_ITS ---
PROCEDURE: XR LUMBAR SPINE 6V W BENDING INDICATIONS: LOW BACK PAIN TECHNIQUE: 5 views of the lumbar spine acquired, including flexion and extension views. COMPARISON: [facility], , XR LUMBAR SPINE 1V, 01/30/2021, 14:18. FINDINGS: Bones: 5 nonrib-bearing vertebrae are present. Mild levoscoliosis centered at the L2 level. L4-L5 interspinous instrumentation again noted. Trace multilevel retrolisthesis. Moderate multilevel disc degeneration and facet joint arthropathy at the L4-L5 and L5-S1 levels. Bones are osteopenic. No vertebral body compression fractures. No suspicious bony lesions. Bones are osteopenic. Bilateral hip arthroplasties incompletely visualized. Soft tissues: Overlying bowel gas pattern is normal. No suspicious soft tissue calcifications. Flexion/extension: There is limited range of motion, with preserved normal alignment. IMPRESSION: Limited range of motion multilevel spondylosis. Dictated by: Albino Bailey [facility] Interpreted: Juan Carlos Mccain MD on 07/03/2021 at 15:43 Transcribed by: DEREK on 07/03/2021 at 15:45 Approved by: Juan Carlos Mccain M.D. on 07/05/2021 at 16:01
== END ==
PROVIDERS: PCP Student in an Organized Health Care Education/Training Program; Referring Provider Physician Assistant; Visit Provider Physician Assistant
DX: M47.816 Spondylosis without myelopathy or radiculopathy, lumbar region (principal); M47.817 Spondylosis without myelopathy or radiculopathy, lumbosacral region; M54.50 Low back pain, unspecified
CPT/HCPCS: 72114

== ENCOUNTER → 2021-07-14 09:30 | Outpatient (CLI) | payer MEDICARE, OTHER, SELFPAY ==
[2021-07-14 13:25] LABS: COVID19 -Nasal RAPID Negative (Negative)
== END ==
PROVIDERS: PCP Student in an Organized Health Care Education/Training Program; Visit Provider Physician Assistant
DX: Z01.812 Encounter for preprocedural laboratory examination (principal); Z20.822 Contact with and (suspected) exposure to COVID-19
CPT/HCPCS: 87635; C9803

== ENCOUNTER 2021-07-18 10:39 | Observation (INO) | payer MEDICARE, OTHER, SELFPAY ==
[2021-07-10 12:30] VITALS: BMI 34.0
[2021-07-17] VITALS (16 sets, daily range): BP systolic 92–134; BP diastolic 42–81; PULSE 52–61; RESP 10–17; TEMP 36–36.8; O2SAT 91–100; BMI 34.0
--- NOTE | 2021-07-17 06:52 | DI.RAD.S_ITS ---
PROCEDURE: XR KNEE RT 1TO2V INDICATIONS: post op total knee TECHNIQUE: 2 view(s) of the knee acquired. COMPARISON: [facility], CR, XR KNEE ARTHRITIC SERIES BI, 10/21/2020, 8:15. FINDINGS: Bones: Patient is status post knee joint arthroplasty. Hardware components are in expected positions. Visualized bony structures are intact. Soft tissues: Overlying postoperative changes are noted. IMPRESSION: Expected postsurgical change. Dictated by: Derek Nieves M.D. on 07/17/2021 at 13:29 Approved by: Derek Nieves M.D. on 07/17/2021 at 13:34
[2021-07-17] MEDS: ACETAMINOPHEN 325 MG TABLET 975 MG PO (07:02)
[2021-07-17] MEDS: CELECOXIB 200 MG CAPSULE PO (07:02)
[2021-07-17] MEDS: PREGABALIN 75 MG CAPSULE PO (07:02)
[2021-07-17] MEDS: LACTATED RINGERS 1,000 ML 42 ML IV ×2 (07:04→12:49)
--- NOTE | 2021-07-17 07:20 | PM.PREOP ---
Pre-operative Note COVID-19 COVID-19 status: Negative Result date/Date tested (Pos, Neg/Pending): 07/14/21 Interval Note History & Physical reviewed/Exam performed by Physician: Yes Changes to H&P: No
--- NOTE | 2021-07-17 07:22 | P.OP_ITS ---
Operative Date/Time/Diagnoses Date of procedure: 07/17/21 Pre-op diagnosis: 1. Right knee osteoarthritis 2. Failed unicompartmental arthroplasty Post-op diagnosis: same Procedure & Clinicians Procedure: Revision of right unicompartmental arthroplasty to total knee arthroplasty Same procedure as scheduled: Yes Indications: The patient has had progressively worsening right knee pain with radiographic changes consistent with arthritis and a previously placed unicompartmental arthroplasty. Non-operative management has failed and the patient has requested revision to total knee replacement. The risks, benefits and alternatives to surgery were discussed with the patient prior to proceeding. Risks discussed included, but were not limited to, failure to relieve pain, stiffness, infection, nerve damage, deep venous thrombosis, pulmonary embolism, stroke, coma, heart attack, permanent paralysis and , as well as the potential need for eventual revision of the prosthetic. Surgeon: Shai Corona Handle Bar Assembler: Rachel Velasco Click Yes if Unassisted: No Anesthesia Type: General and Local Operative Notes Findings: Well-fixed medial unicompartmental arthroplasty and [id number] lateral osteoarthritis with moderate patellofemoral osteoarthritis. Closure Type: primary Specimen(s): none sent Prosthetic devices, grafts, tissues, transplants, or devices: Implants used in this procedure were manufactured by the [employer] and [employer] and included the BCS II Journey total knee replacement with a size 5 cobalt chromium right femur, a size 4 right non porous tibial base plate, a 18 mm cross-linked tibial polyethylene insert and a 35 mm oval Maria Esther II patella. Applied: implant(s) Estimated Blood Loss (mL): 25 Blood products transfused: none Tourniquet time (min): 57 Procedure in detail: The patient was seen in the pre-operative area, where the patient identified the right knee as the operative site and this was marked with my initials. The patient received pre-operative antibiotics, and was taken to the operating room and placed on the operative table in the supine position. After satisfactory anesthesia, a multimedia production assistant out was performed. The right leg was encircled with a tourniquet about the proximal thigh, and the leg was prepared from the toes to the tourniquet with ChloraPrep in the usual fashion and draped through sterile drapes. The leg was elevated and exsanguinated with Eschmark bandage and the tourniquet inflated to 250 mmHg pressure. The knee was approached through an approximately 18 cm incision centered over the patella and carried into the knee through a medial parapatellar arthrotomy, this incorporated the previous scar. The anterior osteophytes and soft tissues were removed. The rotational landmarks of Meng's line and the transepicondylar axis were marked on the femur with electrocautery, and intramedullary guide holes for the femur and tibia were created. The pins for the distal femoral cuts were placed, the guide was then removed and the femoral unicompartmental arthroplasty prosthetic was removed using revision osteotomes. The distal femoral cut was made in 6 degrees of valgus using the intramedullary guide at the primary cut setting. The tibial prosthetic was then removed, again using the osteotomes. The proximal tibial cut was then made using the intramedullary guide, taking 1 mm of bone off the medial side where the prior prosthetic had been. The anterior, posterior and chamfer cuts were then made. The posterior osteophytes and soft tissues were then removed. The posterior capsule was injected with part of a mixture of 60 ml 0.25% Marcaine mixed with 20 ml Exparel and 4 mg of morphine for post-operative pain control. The remainder of this mixture was injected into the capsule and subcutaneous tissues during cement curing. The tibia was prepared with the rotation set by an extra medullary guide. Trial tibial and femoral components were then placed and the intercondylar notch cut through the femoral trial. Range of motion was 0-135 degrees, with good stability throughout the range. The patella was then cut to accommodate the patellar prosthetic. There was no need for a lateral release. The trials were then removed, and the femoral hole plugged with a bone plug. The bone was prepared with pulsatile lavage, and dried with a sponge. Cement was applied and the final prosthetics placed. Excess cement was removed during and after cement curing. After confirming there was no extruded cement posteriorly, the final tibial insert was placed. The knee was copiously irrigated and the tourniquet deflated. Hemostasis was obtained. The capsule was closed with interrupted # 2 polyester suture. The subcutaneous layer was closed with 3-0 Vicryl, and the skin with a running 3-0 V-Lock suture and Dermabond. An Aquacel Ag dressing was applied and the patient was taken to recovery having tolerated the procedure well. Post-operative Condition: stable Disposition: PACU Plan for aftercare: The patient will be maintained on a standard total knee replacement protocol with weight bearing as tolerated. The patient will receive aspirin and sequential compression devices for DVT prophylaxis. The patient will be discharged home when safe for the home environment.
[2021-07-17] MEDS: CEFAZOLIN 2 GM/20 ML SYRINGE IV (11:30)
[2021-07-17] MEDS: TRANEXAMIC ACID 1,000 MG VIAL 1000 MG INJ ×2 (11:35→12:48)
[2021-07-17] MEDS: BUPIVACAINE 0.25% (PF) 60 ML, EPINEPHrine 0.3 MG INJ (11:49)
[2021-07-17] MEDS: BUPIVACAINE LIPOSOME 266 MG/20 ML VIAL INJ (11:51)
[2021-07-17] MEDS: MORPHINE 4 MG/ML INJ INJ (11:52)
--- NOTE | 2021-07-17 11:57 | SUR.OPER ---
CASE START DELAY DUE TO HUMIDITY LEVELS. LEVEL AT 16 % AT 1110. SURGEON, ANESTHESIA AND DIRECTOR AWARE AND AGREED TO PROCEED
--- NOTE | 2021-07-17 12:00 | SUR.OPER ---
Supine on padded OR bed. Pillow under head, arms secured on padded armboards <90 degree abduction. Safety belt across torso. Non-operative leg secured with tape over blanket over lower leg. Operative leg secured in DeMayo/Jose/Nathe positioner. Foam padded brace at thigh of operative leg.
[2021-07-17] MEDS: HYDROMORPHONE 2 MG INJ IV ×2 (13:41→13:50)
[2021-07-17] MEDS: OXYCODONE IR 5 MG TABLET PO (14:08)
--- NOTE | 2021-07-17 14:44 | SUR.OPER ---
HUMIDITY OR OR AT19 % ..ANESTHESIA, SURGEON AND DIRECTOR AWARE . DECISION WAS MADE TO PROCEED WITH SURGERY
--- NOTE | 2021-07-17 14:46 | SUR.OPER ---
OMIT ENTRY REGARDING 19 % HUMIDITY,, WRONG CHART
--- NOTE | 2021-07-17 15:22 | SUR.PHASEI ---
Oral airway out time 1321 hrs.
[2021-07-17] MEDS: LACTATED RINGERS 1,000 ML 100 ML IV (15:40)
[2021-07-17] MEDS: ATORVASTATIN 20 MG TABLET 40 MG PO (20:20)
[2021-07-17] MEDS: ASPIRIN EC 81 MG TABLET 162 MG PO (20:21)
[2021-07-17] MEDS: ACETAMINOPHEN 325 MG TABLET 650 MG PO (20:21)
[2021-07-17] MEDS: DOCUSATE 100 MG CAPSULE PO (20:21)
[2021-07-17] MEDS: IBUPROFEN 400 MG TABLET PO (20:22)
[2021-07-17] MEDS: PANTOPRAZOLE DR 40 MG TABLET PO (20:28)
[2021-07-18 00:16] VITALS: BP 118/57; PULSE 62; RESP 18; TEMP 36.1; O2SAT 96
[2021-07-18] MEDS: IBUPROFEN 400 MG TABLET PO ×4 (01:15→12:35)
[2021-07-18] MEDS: LACTATED RINGERS 1,000 ML 100 ML IV (01:40)
[2021-07-18] MEDS: OXYCODONE IR 5 MG TABLET PO (03:17)
[2021-07-18 03:34] VITALS: BP 119/57; PULSE 63; RESP 18; TEMP 36.2; O2SAT 98
[2021-07-18] MEDS: LEVOTHYROXINE 75 MCG TABLET PO (05:58)
[2021-07-18] MEDS: PANTOPRAZOLE DR 40 MG TABLET PO (05:58)
[2021-07-18 06:34] LABS: Hematocrit 27.3 % (36-46); Hemoglobin 8.5 g/dL (12.0-16.0)
--- NOTE | 2021-07-18 07:26 | PM.DS.1 ---
History of Present Illness History of Present Illness Date Patient Seen: 07/18/21 Time Patient Seen: 07:05 Chief complaint: OPB Narrative: The history and physical are contained in the chart previously completed note. Please refer to that note for this information. Discharge Providers Provider Date of admission: July 17, 2021 Discharge Date: 07/18/21 Primary care physician: Ryanne Mcdaniel MD Consults: 07/17/21 14:52 Consult to Discharge Planning Routine Comment: Consult to Physical Therapy Evaluate & Treat Comment: Physician Instructions: postop TKA protocol Discharge provider: Shai Croona MD Summary Hospital Course Discharge Diagnosis: 1. Right knee osteoarthritis 2. Failed unicompartmental arthroplasty, right knee 3. Post hemorrhagic anemia Hospital Course: The patient was admitted to the hospital and taken directly to the operating room on July 17, 2021. She underwent a revision of a right knee unicompartmental arthroplasty to a total knee arthroplasty without complications. On postoperative day 1 she was extremely comfortable with good pain control. She had a moderate post hemorrhagic anemia which appeared stable and would not need specific treatment. At the time of this dictation the plan is for her to discharge home today after physical therapy. Status at Discharge Cognitive/behavioral status at discharge: at baseline, oriented Functional status at discharge: uses cane/walker Overall status at discharge: patient is progressing back to baseline Time Spent with Patient Time spent: Less than 30 minutes Exam Vital Signs (past 8 hours): - 07/18/21 00:16 07/18/21 03:34 Temperature 97.0 F L 97.1 F L Pulse Rate 62 63 Respiratory Rate 18 18 Blood Pressure 118/57 L 119/57 L Pulse Oximetry 96 98 Oxygen Delivery Method Room Air Oxygen Flow Rate 0 Narrative Exam Narrative: Right knee wound is dressed with no drainage on the bandage. Calf is soft. Light touch and motion are intact in the right lower extremity. Objective Labs Result Diagrams: 07/18/21 06:05 Labs: Laboratory Results - last 24 hr 07/18/21 06:05 Hgb 8.5 L Hct 27.3 L PFSH Medical History (Updated 07/10/21 @ 13:18 by Hailey Painting RN) A-fib ACS (acute coronary syndrome) (07/2019) Breathing-related sleep disorder Coronary artery spasm Easy bruisability Facet arthropathy, lumbar Fracture of neck of humerus Gallbladder sludge GI bleed HLD (hyperlipidemia) HNP (herniated nucleus pulposus) Hypothyroid Left leg pain Lumbar radiculopathy, acute KATHI (obstructive sleep apnea) Osteoarthritis Pre-diabetes SCC (squamous cell carcinoma) Scoliosis Spinal stenosis Spinal stenosis, lumbar region with neurogenic claudication Surgical History (Updated 07/11/21 @ 10:27 by Hailey Painting RN) H/O right knee surgery History of cardiac cath History of cardiac radiofrequency ablation History of left hip replacement History of left shoulder replacement History of radial keratotomy History of right hip replacement Hx of cervical spine surgery Hx of laminectomy Hx of left cataract extraction Family History Mother Cancer Social History household members: spouse Smoking Status: Never smoker alcohol intake: current Discharge Assessment & Plan Assessment and Plan Assessment: Stable postoperative day 1 status post right revision of unicompartmental arthroplasty to tricompartmental arthroplasty. She has a moderate post hemorrhagic anemia but should not require transfusion or specific treatment. She has good pain control. She has been able to stand at the bedside use the commode. Physical therapy is planned today. It is anticipated she will make adequate progress for discharge home. Plan of Treatment: Discharged to home today with follow-up in my office in 10-14 days. She has been given a prescription for oxycodone as well as instructions for the use of ibuprofen and Tylenol for pain relief and the continued use of low-dose aspirin for DVT prophylaxis. Discharge Plan Discharge Plan Patient Disposition: Home Discharge orders & Medications Discharge Orders: Discharge (Order); Ordered 07/18/21 Ordered By: Shai Corona Prescriptions: New acetaminophen 325 mg Tablet 650 mg PO TID 30 Days Qty: 180 0RF ibuprofen 400 mg Tablet 400 mg PO Q4HR 30 Days 0RF oxycodone 5 mg Tablet 5 mg PO Q4H PRN (Reason: Pain, Moderate (4-6)) Qty: 40 0RF Continued alendronate 70 mg tablet 70 mg PO QWEEK 0RF Label Comments: Takes on Sundays atorvastatin 20 mg tablet 40 mg PO BEDTIME 0RF aspirin [Aspirin Low Dose] 81 mg Tablet,Delayed Release (Dr/Ec) 162 mg PO BID 0RF sotalol 80 mg tablet 80 mg PO BID 0RF levothyroxine 100 mcg capsule 75 mcg PO DAILY 0RF pantoprazole 40 mg tablet,delayed release (DR/EC) 40 mg PO BID 0RF Discontinued acetaminophen [Tylenol Extra Strength] 500 mg tablet 1,000 mg PO Q6H PRN (Reason: Pain (Scale Score 1-3)) 0RF Follow up/Referrals: Ryanne Mcdaniel MD [Primary Care Provider] - Shai Corona MD [Physician] - 2 Weeks Diet/Activity/Treatments Diet: Diet as Tolerated and Regular Activity: You may bear weight as tolerated on your right leg. Cold/Heat Therapy: Apply ice for 15 minutes every hour as needed to the right knee for pain control. Skin/Wound/Dressing Care Report to your healthcare provider any signs of infection, such as:: chills, fever, night sweats, increased pain, unusual drainage and unusual redness Dressing: You may remove the [place] wrap 3 days after surgery and shower normally with the deeper dressing in place. Leave the deeper dressing in place until your follow-up. If the central strip of the dressing becomes saturated with either water or blood, please call the office to have it evaluated. Visit Report/Discharge Packet Instructions: DI for Knee Replacement Stand Alone Forms: Surgery Discharge Discharge Data Primary Care Provider: Ryanne Mcdaniel Attending Provider: Shai Corona
[2021-07-18 07:40] VITALS: BP 117/67; PULSE 68; RESP 17; TEMP 36.4; O2SAT 95
--- NOTE | 2021-07-18 08:26 | CM.DANOTE ---
DCP: Case received, EMR reviewed and met with patient. Introduced self and role. Was able to obtain information regarding patient's baseline activity level prior to her surgery. DCP assessment completed with information currently available. Patient is a 71 year old female who admitted yesterday morning to the care of the orthopedic team. PCP: Dr. Mcdaniel. Payer: confirmed: Medicare/[facility]. Patient came to the hospital for a surgical procedure. She had right knee arthroplasty, revision of right unicompartmental arthroplasty. Patient has history of osteoarthritis of her knees. Met with patient. She is alert and oriented. She was sitting up in bed. Pleasant individual. She resides in [place] with her spouse, ASHLEY. Patient is independent at her baseline. She does have a cane for use prior to her surgery. Patient has had back surgeries in the past as well. She will be working with physical therapy before discharge. P: Patient has discharge orders for home today. She will be working with P.T. before discharge. Keesha Alvarez RN/Rubber Goods Assembler Discharge Planning/Care Management CM Discharge Assessment Start: 07/18/21 08:23 Freq: Status: Active Protocol: Document 07/18/21 08:23 (Rec: 07/18/21 08:24 [id number]) Discharge Planning Assessment Assigned Oil And Gas Drafter Keesha Alvarez RN/Rubber Goods Assembler Advance Directives? Yes Advance Directives on File Yes History Provided By Patient,Medical Record Prior Living Arrangements House Household Members spouse Type of transporation used prior to Drives own vehicle admit Independent with ADL's Yes Is patient alert and oriented? Yes Caregiver for Another No Patient/Family Preference OP PT Therapy Barriers to Discharge No Discharge Plan Home Referrals Initiated None needed Whiteboard Updated in Patient Room with Yes name and ext. # of Oil And Gas Drafter Review Status In Process Next Review Type Continued Stay Review Pre-Anesthesia Assessment Start: 07/10/21 12:30 Freq: Status: Complete Protocol: Document 07/10/21 12:30 CAB (Rec: 07/10/21 12:43 CAB [id number]) Pre-Anesthesia Assessment Preferred Name Blanca Patient Information Reviewed Via Phone Assessment Assessment Completed With Patient H&P Completed Within 30 Days Yes Diagnostic Results BMP/CMP,CBC,EKG Comment Labs/EKG @ [facility] 06/30/21, COVID screen @ [facility] 07/14/21 Primary Care Provider Ryanne Mcdaniel Seen Specialist in Last 12 Months Yes Specialist Seen Emergency,General surgeon, Orthopedist Primary Language Dutch Preferred Language Dutch Tack Coverer Required No Height 5 ft 1 in Weight 180 lb Body Mass Index (BMI) 34.0 Hearing Ability Normal Visual Assist Contacts Dentition Type Teeth, Natural Present Barriers to Learning None Hx Anesthesia Reactions No Hx Family Anesthesia Reaction No Hx Malignant Hyperthermia No Hx Blood Transfusions Yes Hx Blood Transfusion Reaction No Anesthesia Review Requested No alcohol intake current alcohol intake frequency a few times a month Smoking Status Never smoker Substance Use Type does not use Pain Present Pain Reported Musculoskeletal Symptoms Abnormal Gait,Back Pain, Difficulty Walking,Joint Pain History of Falling (Recent or History of No ) Patient is completely paralyzed or No completely immobile Prosthesis or Orthotic Device Cane Mental Status Oriented to own ability Is patient on oxygen? No Does patient have LERNER/SOB No Hx Sleep Apnea Yes: Uses a oral appliance CPAP/BIPAP use prescribed not used Currently Taking a Beta Dawson Yes: Sotalol Can You Climb a Flight of Stairs Without No SOB Hx Chest Pain No Hx SOB No Hx Syncope or Dizziness No Anti-Coagulant Therapy Yes: ASA 162mg BID-pt will check w/cardiology on when to hold Has a Distance Education Director Yes: Dr. Baumann-last visit Hx Pacemaker/ICD No Pacemaker Rep Required? No Comment Cardiac records scanned Diet Type At Home Regular dysphagia No Gastrointestinal Symptoms Reflux Urinary Catheter Present No Hx Urinary Self Catheterization No Diabetes No HgbA1C 5.5 Date 06/30/21 Patient No Lactating No Hx Drug Resistant Organism No Presence of External or Internal Medical Yes: Left TSA, Ron MARIZOL, Rt Devices partial knee, oral appliance Have you had any close contact with No someone diagnosed with COVID-19? Received a COVID vaccine? Yes Received all doses? Yes Marital Status Lives With spouse Prior Living Arrangements House Number of Floors (Floors) Two Floors Support System Spouse Does the Patient Have Assistance After Yes Surgery Patient Discharge Plan Description Return Home Comment Pt advised possible same day surgery per surgeon Feels Safe in Current Environment Yes Been Physically Hurt or Threatened By a No Person in Current Environment Do you have thoughts of harming yourself None or others? Are you currently considering suicide? No Do you have a plan to hurt yourself or No Plan others? Do You Have Any Spiritual Beliefs That No May Affect Your HC Choices? Do You Have Any Cultural Practices That No May Affect Your HC Choices? Who Can We Speak to About Patient's Care Family, friends Identifying Code for Release of Patient Declines to issue Information Health Care Proxy/Next of Kin SusanMadhuCathryn () Health Care Proxy Emergency Contact Name Evan () Emergency Contact Advance Directives? Yes Advance Directives on File Yes Power of Hide Sorter No PAC Instructions Do not shave/clip surgical site,Durable medical equipment ,Medications to take/avoid, Nasal antibiotic,No ETOH/ petroleum product on skin DOS, NPO,Post-op transportation,Pre -surgical wash,Sturdy shoes/ comfortable clothes,Do not bring valuables and remove jewelry Comment Will bring oral appliance for sleep apnea
[2021-07-18] MEDS: ACETAMINOPHEN 325 MG TABLET 650 MG PO (09:20)
[2021-07-18] MEDS: DOCUSATE 100 MG CAPSULE PO (09:20)
[2021-07-18] MEDS: ASPIRIN EC 81 MG TABLET 162 MG PO (09:20)
[2021-07-18] MEDS: SOTALOL 80 MG TABLET PO (09:20)
--- NOTE | 2021-07-18 09:50 | PT.IIE ---
Current Diagnoses Unilateral primary osteoarthritis, right knee (07/18/21) Presence of right artificial knee joint (07/18/21) Surgery Performed Operation Date: 07/17/21 07:45 Actual Procedures p Total Knee Arthroplasty Revision(Right) - Shai Corona MD Medical History (Last Updated 07/10/21 @ 13:18 by Hailey Painting RN) A-fib ACS (acute coronary syndrome) (07/2019) Breathing-related sleep disorder Coronary artery spasm Easy bruisability Facet arthropathy, lumbar Fracture of neck of humerus Gallbladder sludge GI bleed HLD (hyperlipidemia) HNP (herniated nucleus pulposus) Hypothyroid Left leg pain Lumbar radiculopathy, acute KATHI (obstructive sleep apnea) Osteoarthritis Pre-diabetes SCC (squamous cell carcinoma) Scoliosis Spinal stenosis Spinal stenosis, lumbar region with neurogenic claudication Physical Therapy Inpatient Evaluation/Re-Eval M1 PT/OT-IP Prior Functional Status Start: 07/18/21 08:49 Freq: NEEDED Status: Active Protocol: Document 07/18/21 09:49 AW (Rec: 07/18/21 11:06 AW [id number]) Medical Review Prior Functional Status Medical History Reviewed Yes Communication Pt is able to make her needs known. Mobility and Gait Pt states she stays near furniture in the house and uses a SPC outside the house. Activities of Daily Living and IADL's Independent with all ADL's. Her drives. 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 Social History Household Members spouse Living Arrangements House Number of Floors (Floors) Two Floors Number of Stairs To Enter/Railing? 2 platform steps to enter and can use walker. Pt can stay on main level. She climbs 13 steps up to the TV room but will not do so until she feels stronger and has more confidence. Home Environment High Toilet,Walk in Shower Home Equipment Four Wheel Walker,Straight Cane,Raised Toilet Seat w/ Armrests,Shower Seat without Backrest,Hand Held Shower, Nuclear Cardiology Technologist,Grab Bars Near Toilet, Grab Bars In Shower Additional Social History Comment Pt has an adjustable bed. She has a 4WW but no FWW. 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 She lives iwth her , ASHLEY, who had meniscus surgery in early June but will be able to assist her at home. M2 PT-IP Current Condition Start: 07/18/21 08:49 Freq: NEEDED Status: Active Protocol: Document 07/18/21 09:49 AW (Rec: 07/18/21 11:06 AW [id number]) Physical Therapy Current Condition Current Condition Evaluation Date 07/18/21 Treatment Diagnosis s/p R TKA (revision uni); difficulty in walking Onset Date 07/17/21 M3 PT-IP Subjective Start: 07/18/21 08:49 Freq: NEEDED Status: Active Protocol: Document 07/18/21 09:49 AW (Rec: 07/18/21 11:06 AW [id number]) Subjective Physical Therapy Visit Type Type Initial Evaluation Visit Start Time :21 Visit Stop Time 09:49 Total Visit Minutes 28 Number of ENGINEERING PRODUCTION LIAISON Visits 0 Physical Therapy Visit Comments Patient Comments Pt is willing to participate with PT Patient Goals Return home with spouse support Therapy Pain Assessment Pain When Pain Assessed During Mobility Pain Present Pain Present Pain Reported Location Right Knee Intensity 2 Scale Used Numeric (0 - 10) Pain Management Techniques Apply Cold,Timing of Activity with Medications M4 PT-IP Mobility and Gait Start: 07/18/21 08:49 Freq: NEEDED Status: Active Protocol: Document 07/18/21 09:49 AW (Rec: 07/18/21 11:06 AW [id number]) PT-Transfer Assessment Sit to and From Stand Sit to and from Stand Standby Assistance,Contact Guard Assistance,Use of Upper Extremities Equipment Transfer Assistive Device Gait Belt,Front Wheeled Walker Orthotic/Prosthetic Devices or Brace: No Transfers Transfer Destination Chair Transfer Technique amb with FWW Transfer Ability Level of Assist Standby Assistance,Contact Guard Assistance Comments Mobility Comments Pt was sitting up in chair as PT arrived. She scooted forward and stood CGA. She used FWW to ambulate in the room. PT noted walker was too tall for pt. Pt sat EOB as PT left to gather a youth-sized walker. Pt then used shorter walker to ambulate in the halls 75 feet SBA. After completing stair training with platform walker, pt walked back to the room with FWW SBA. She requested return to chair , refusing bed mobility assessment and transferring SBA. Pt was left with call light and tray table in reach, ice packs applied to R knee. Gait Assessment Gait Gait Assistance Required: Standby Assistance Distance (Feet) 150 Able to Maintain Weight Bearing Status Yes During Gait Assistive Devices Assistive Device Gait Belt,Front Wheeled Walker Orthotic/Prosthetic Devices or Brace: No Gait Deviations General Gait Pattern Antalgic,Decreased Stride Length,Flexed Trunk,Step-to Gait Factors Limiting Gait Function Factors Limiting Gait Function Decreased Strength,Limited Range of Motion,Pain Comments Gait Comments Pt ambulated with unequal step lengths initially. Gait quality improved with cues for shorter but equal steps. Stair Climbing Assessment Evaluation Level of Assist On Stairs Contact Guard Assistance,1 Person Assistance Devices Stair Climbing Assistive Devices Front Wheel Walker Technique/Endurance Stair Climbing Direction Ascend and Descend Stair Climbing Technique Step to Step Number of Steps Climbed 1 Query Text: Stair Climbing Set # Repetitions (reps) 2 Comments Stair Climbing Comments After education and demonstration, pt independently sequenced up/ down PF step with FWW CGA. PT-Balance Assessment Sitting Balance and Reactions Static Sitting Balance Ability Normal Dynamic Sitting Balance Ability Normal Standing Balance and Reactions Static Standing Balance Ability Good Dynamic Standing Balance Ability Fair Device Used FWW M5 PT-IP Objective Assessments Start: 07/18/21 08:49 Freq: NEEDED Status: Active Protocol: Document 07/18/21 09:49 AW (Rec: 07/18/21 11:06 AW [id number]) Orientation Orientation/Cognition Level of Alertness Alert Orientation Name,Day of Week,Place, Situation Language Function Ability No Deficits Noted Safety Awareness Understands Safety Issues Memory Description No Deficits Noted Gross Range of Motion Lower Extremity ROM Assessment Right Impaired Impairments R knee ~3-85 AROM Strength Lower Extremity Strength Assessment Right Impaired Comments Strength Comments LLE grossly 4+/5 Sensation Assessment Sensation Gross Sensation WNL M6 PT-IP Treatment Start: 07/18/21 08:49 Freq: NEEDED Status: Active Protocol: Document 07/18/21 09:49 AW (Rec: 07/18/21 11:06 AW [id number]) Physical Therapy Treatment Exercises Exercises Ankle Pumps,Quad Sets,Heel Slides,Passive Knee Extension Hang,Seated Knee Flexion/ Extension Education Education Provided Weight Bearing Status,Post-Op Packet,Safety Other Treatments Other Treatment Performed Educated pt on PT plan of care , WB status, safe use of FWW, and ROM emphasis in early phase of rehab. M7 PT-IP Assessment and Plan Start: 07/18/21 08:49 Freq: NEEDED Status: Active Protocol: Document 07/18/21 09:49 AW (Rec: 07/18/21 11:06 AW [id number]) PT Summary Assessment and Plan Potential Rehabilitation Potential Good Status of Condition at Evaluation Evolving Summary Impairments Pain,ROM,Strength,Balance,Bed Mobility,Transfers,Gait Assessment Summary Celsa is a 71 yo woman seen for PT evaluation on POD1 following R TKA. She uses a SPC for ambulation outside the house at baseline and is otherwise independent. She required SBA/CGA for mobility with FWW and stair navigation on assessment. Pt does not have a FWW and will need to acquire one for home use. 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 PT recommends youth-sized walker for best fit and optimal support. Pt completed platform stair training at this encounter but would like to trial stairs before discharge in order to assess readiness to climb indoor stairs at home . Once this is completed, pt will be safe to discharge home with assist and outpatient PT which is already scheduled. Goals Bed Mobility Goal Standby Assistance Transfer Goal Independent,Front Wheeled Walker Gait Goal Standby Assistance,Front Wheel Walker Gait Distance 150 Other Goals - up/down 2 platform steps SBA with FWW - up/down 13 steps with R rail SBA Days to Meet Goals 2 Frequency of Treatment Frequency Of Treatment Twice a Day Treatment Plan Physical Therapy Treatment Plan Bed Mobility Training,Transfer Training,Gait Training, Therapeutic Exercise,Balance Retraining,Post Op Education, Discharge Planning,Hot or Cold Pack Other Recommendations and Next Treatment stair training with R rail; Focus ensure pt has access to FWW Weight Bearing Status Weight Bearing Status Weight Bear as Tolerated Recommendations To Nursing Amount of Assist Needed Standby Assistance,1 Person Assist Discharge Recommendations PT Discharge Recommendations Home with Assistance, Outpatient PT Equipment Needed for Home Before FWW (pt states she can obtain Discharge from [facility]) Transportation Needs at Discharge Private Vehicle
[2021-07-18 11:14] VITALS: BP 104/51; PULSE 68; RESP 16; TEMP 36.7; O2SAT 94
--- NOTE | 2021-07-18 12:56 | PT.IPTN ---
Current Diagnoses Unilateral primary osteoarthritis, right knee (07/18/21) Presence of right artificial knee joint (07/18/21) Surgery Performed Operation Date: 07/17/21 07:45 Actual Procedures p Total Knee Arthroplasty Revision(Right) - Shai Corona MD Physical Therapy Treatment Note M2 PT-IP Current Condition Start: 07/18/21 08:49 Freq: NEEDED Status: Active Protocol: Document 07/18/21 09:49 AW (Rec: 07/18/21 11:06 AW [id number]) Physical Therapy Current Condition Current Condition Evaluation Date 07/18/21 Treatment Diagnosis s/p R TKA (revision uni); difficulty in walking Onset Date 07/17/21 M3 PT-IP Subjective Start: 07/18/21 08:49 Freq: NEEDED Status: Active Protocol: Document 07/18/21 12:56 AW (Rec: 07/18/21 13:05 AW [id number]) Subjective Physical Therapy Visit Type Type Treatment Note Visit Start Time 12:44 Visit Stop Time 12:56 Total Visit Minutes 12 Notes Pt's spouse, SAHLEY, was present and participated in caregiver training. Physical Therapy Visit Comments Patient Comments Pt is dressed and hoping to leave soon. Therapy Pain Assessment Pain When Pain Assessed During Mobility Pain Present Pain Present Denied Pain Location Right Knee Intensity 2 Scale Used Numeric (0 - 10) M4 PT-IP Mobility and Gait Start: 07/18/21 08:49 Freq: NEEDED Status: Active Protocol: Document 07/18/21 12:56 AW (Rec: 07/18/21 13:05 AW [id number]) PT-Transfer Assessment Sit to and From Stand Sit to and from Stand Standby Assistance,Use of Upper Extremities Equipment Transfer Assistive Device Gait Belt,Front Wheeled Walker Orthotic/Prosthetic Devices or Brace: No Transfers Transfer Destination Chair,Wheelchair Transfer Technique amb with FWW Transfer Ability Level of Assist Standby Assistance Comments Mobility Comments Pt was sitting up in the chair as PT arrived. Her spouse assisted to don socks and shoes. Pt stood SBA with her spouse guarding and used FWW to ambulate toward the door. She transferred to w/c SBA and was wheeled to the stairs. She stood and walked with FWW 5 feet to the stairs SBA. She ascended and descended with R rail and L hand resting on left rail for balance support as she would at home. Spouse guarded with cues for sequencing and appropriate level of assist. Pt transferred back to the w/c SBA. On return to the room, pt transferred to the chair with FWW SBA. Contacted RN for final d/c instructions. Gait Assessment Gait Gait Assistance Required: Standby Assistance Distance (Feet) 150 Able to Maintain Weight Bearing Status Yes During Gait Assistive Devices Assistive Device Gait Belt,Front Wheeled Walker Orthotic/Prosthetic Devices or Brace: No Gait Deviations General Gait Pattern Antalgic,Decreased Stride Length,Flexed Trunk,Step-to Gait Factors Limiting Gait Function Factors Limiting Gait Function Decreased Strength,Limited Range of Motion,Pain Stair Climbing Assessment Evaluation Level of Assist On Stairs Standby Assistance,Contact Guard Assistance Devices Stair Climbing Assistive Devices Right Railing Technique/Endurance Stair Climbing Direction Ascend and Descend Stair Climbing Technique Step to Step Number of Steps Climbed 3 Stair Climbing Set # Repetitions (reps) 1 Comments Stair Climbing Comments Pt's spouse able to assist pt safely. M5 PT-IP Objective Assessments Start: 07/18/21 08:49 Freq: NEEDED Status: Active Protocol: Document 07/18/21 09:49 AW (Rec: 07/18/21 11:06 AW [id number]) Orientation Orientation/Cognition Level of Alertness Alert Orientation Name,Day of Week,Place, Situation Language Function Ability No Deficits Noted Safety Awareness Understands Safety Issues Memory Description No Deficits Noted Gross Range of Motion Lower Extremity ROM Assessment Right Impaired Impairments R knee ~3-85 AROM Strength Lower Extremity Strength Assessment Right Impaired Comments Strength Comments LLE grossly 4+/5 Sensation Assessment Sensation Gross Sensation WNL M6 PT-IP Treatment Start: 07/18/21 08:49 Freq: NEEDED Status: Active Protocol: Document 07/18/21 12:56 AW (Rec: 07/18/21 13:05 AW [id number]) Physical Therapy Treatment Education Education Provided Safety M7 PT-IP Assessment and Plan Start: 07/18/21 08:49 Freq: NEEDED Status: Active Protocol: Document 07/18/21 12:56 AW (Rec: 07/18/21 13:05 AW [id number]) PT Summary Assessment and Plan Summary Impairments Pain,ROM,Strength,Balance,Bed Mobility,Transfers,Gait Progress Towards Goals Progressing Toward Goals,Safe For Discharge Assessment Summary Pt requested to practice stair navigation prior to discharge . She was able to sequence without cues and her spouse was able to provide appropriate level of assist. 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 Pt is safe to discharge home with assist and outpatient PT. Goals Bed Mobility Goal Standby Assistance Transfer Goal Independent,Front Wheeled Walker Gait Goal Standby Assistance,Front Wheel Walker Gait Distance 150 Other Goals - up/down 2 platform steps SBA with FWW - up/down 13 steps with R rail SBA Days to Meet Goals 2 Frequency of Treatment Frequency Of Treatment Discharge Treatment Plan Physical Therapy Treatment Plan Bed Mobility Training,Transfer Training,Gait Training, Therapeutic Exercise,Balance Retraining,Post Op Education, Discharge Planning,Hot or Cold Pack Weight Bearing Status Weight Bearing Status Weight Bear as Tolerated Recommendations To Nursing Amount of Assist Needed Standby Assistance Discharge Recommendations PT Discharge Recommendations Home with Assistance, Outpatient PT
--- NOTE | 2021-07-18 13:11 | PC.NURSE ---
Pt is dressed and ready for discharge home with Spouse. IV has been removed. Went over d/c instructions with Pt and Spouse-discussed d/c meds, time of last dose, reviewed stroke education, s/s of infection, WBAT, drinking plenty of fluids to prevent constipation or dehydration, no driving while on narcotics and follow up appointment. Also reminded Pt not to exceed 3000mg of Acetaminophen in 24 hours. Pt and Spouse denied further questions and Pt was taken out via w/c by [employer] WORK[employer] to POV with Spouse and all belongings.
== END 2021-07-18 13:14 | disposition home or self-care (01) ==
LOC: OR 10:50 → AC 10:50
PROVIDERS: Admitting Provider Orthopaedic Surgery; PCP Student in an Organized Health Care Education/Training Program; Referring Provider Orthopaedic Surgery; Visit Provider Orthopaedic Surgery
PROC: (CPT 27487; principal; 2021-07-17 07:45)
DX: M17.11 Unilateral primary osteoarthritis, right knee (principal); Z96.651 Presence of right artificial knee joint; E78.5 Hyperlipidemia, unspecified; E03.9 Hypothyroidism, unspecified; I48.91 Unspecified atrial fibrillation; G47.33 Obstructive sleep apnea (adult) (pediatric); D50.0 Iron deficiency anemia secondary to blood loss (chronic)
CPT/HCPCS: 27487; 36415; 73560; 85014; 85018; 97116; 97161; C1776; G0378; C9290; J0171; J0690; J1100; J1170; J2250; J2270; J2274; J2405; J2704; J3010

== ENCOUNTER → 2021-10-06 09:54 | Outpatient (CLI) | payer MEDICARE, OTHER, SELFPAY ==
[2021-07-17 17:47] VITALS: BMI 34.0
[2021-10-06 11:48] LABS: Blood Urea Nitrogen 14 mg/dL (7-17); Calcium 9.2 mg/dL (8.4-10.2); Carbon Dioxide 24 mmol/L (22-32); Chloride 107 mmol/L (98-107); Estimated Glomerular Filt Rate > 60.0 mL/min (>60); Glucose 115 mg/dL (80-110); HEMOLYSIS < 15 (0-50); Potassium 4.4 mmol/L (3.4-5.1); Sodium 139 mmol/L (137-145)
== END ==
PROVIDERS: PCP Student in an Organized Health Care Education/Training Program; Referring Provider Internal Medicine Cardiovascular Disease; Visit Provider Internal Medicine Cardiovascular Disease
DX: I10 Essential (primary) hypertension (principal)
CPT/HCPCS: 36415; 80048

== ENCOUNTER → 2022-04-12 07:56 | Outpatient (CLI) | payer MEDICARE, OTHER, SELFPAY ==
[2021-07-17 17:47] VITALS: BMI 34.0
--- NOTE | 2022-04-12 07:57 | DI.ECHO.S_ITS ---
[facility]---------+ [facility] +---------+ : : [address] : [place] [place] : : : : [id number] : : : : Phone: [phone]+ Echocardiogram Report + + :Name: DAVION PAULSON Study Date: 04/12/2022 Height: 61 in : :[facility] ReadingLocation: Weight: 167 lb : : Gender: Female BSA: 1.7 m2 : :: 1950 Age: 71 yrs BP: 130/76 mmHg: :Reason For Study: CAD, LOWER EXTREMITY EDEMA : :Ordering Physician: LD : :PATRICIO Performed By: Lani Rizo : :Referring: PATRICIO JAFFE : + + Interpretation Summary The left ventricle is normal in size and wall thickness. The ejection fraction is estimated to be 55-60%. Diastolic parameters suggest a pseudonormalization pattern, consistent with probable elevated filling pressures. The right ventricle is normal in size and function. The left atrium is severely dilated. There is moderate mitral regurgitation. There is mild tricuspid regurgitation. The right ventricular systolic pressure is estimated to be at least 31 mmHg based on an estimated right atrial pressure of 3 mm Hg. Procedure: A two-dimensional transthoracic echocardiogram with color flow and Doppler was performed. The study quality was technically adequate. There is no prior echocardiogram noted for this patient. The patient was in sinus bradycardia with heart rates between 56-60 bpm during the exam. Left Ventricle: The left ventricle is normal in size and wall thickness. There is no thrombus. The ejection fraction is estimated to be 55-60%. There are no focal wall motion abnormalities. Diastolic parameters suggest a pseudonormalization pattern, consistent with probable elevated filling pressures. Right Ventricle: The right ventricle is normal in size and function. Atria: The left atrium is severely dilated. Right atrial size is normal. There is no Doppler evidence for an interatrial shunt. Mitral Valve: There is mild mitral annular calcification. The mitral valve leaflets are slightly calcified. There is moderate mitral regurgitation. Aortic Valve: The aortic valve is trileaflet. The aortic valve opens well. There is no aortic valve stenosis. No aortic regurgitation is present. Tricuspid Valve: The tricuspid valve is normal. There is mild tricuspid regurgitation. The right ventricular systolic pressure is estimated to be at least 31 mmHg based on an estimated right atrial pressure of 3 mm Hg. Pulmonic Valve: The pulmonic valve leaflets are thin and pliable; valve motion is normal. There is mild pulmonic regurgitation. Great Vessels: The aortic root is normal size. The dimensions of the ascending aorta are normal. The IVC is of normal diameter and collapses greater than 50% with a sniff. This suggests a low right atrial pressure of 3 mm Hg. Pericardium/ Pleura There is no pericardial effusion. There is an anterior echo-free space consistent with a fat pad. There is no pleural effusion. MMode/2D Measurements & Calculations LVIDd: 4.7 cm LVOT diam: 2.0 cm LVIDs: 3.5 cm Ao root diam: 2.5 cm FS: 25.9 % asc Aorta Diam: 3.0 cm EPSS: 0.51 cm Ao Arch Diam (Prox Trans): 2.3 cm IVSd: 0.81 cm LVPWd: 0.98 cm LV adames. diameter/BSA (cm/m^2): 2.7 LV sys. diameter/BSA (cm/m^2): 2.0 LA A2 area: 32.2 cm2 RA long axis: 5.5 cm LA A4 area: 24.8 cm2 RA area: 17.8 cm2 LA length (vol): 6.6 cm RA vol: 48.8 ml LA vol: 103.3 ml RA : 27.9 ml/m2 LA vol index: 59.0 ml/m2 IVC diam: 1.2 cm RVD1 (basal): 3.1 cm RVD2 (mid): 2.8 cm TAPSE: 2.4 cm Doppler Measurements & Calculations Ao V2 max: 144.4 cm/sec LVOT Max Johnathan: 108.3 cm/sec Ao V2 mean: 103.7 cm/sec LV V1 max P.7 mmHg Ao max P.3 mmHg LV V1 VTI: 26.2 cm Ao mean P.8 mmHg NICOLE(I,D): 2.2 cm2 Ao V2 VTI: 35.9 cm NICOLE(V,D): 2.3 cm2 sev ratio: 0.73 NICOLE indexed to BSA (cm^2/m^2): 1.3 MV E max johnathan: 85.9 cm/sec TR max johnathan: 263.7 cm/sec MV A max johnathan: 55.1 cm/sec TR max P.8 mmHg MV E/A: 1.6 PA V2 max: 87.5 cm/sec Med Peak E' Johnathan: 5.7 cm/sec PA V2 mean: 57.0 cm/sec E/E' med: 15.1 PA mean P.5 mmHg Lat Peak E' Johnathan: 10.6 cm/sec PA pr(Accel): 8.8 mmHg E/E' lat: 8.1 E/e' average: 11.6 MV dec time: 0.18 sec SV(LVOT): 79.5 ml Reading Physician:01:05 PM
== END ==
PROVIDERS: PCP Family Medicine; Referring Provider Family Medicine; Visit Provider Family Medicine
DX: I25.10 Atherosclerotic heart disease of native coronary artery without angina pectoris (principal); I48.20 Chronic atrial fibrillation, unspecified; R60.0 Localized edema; I51.7 Cardiomegaly; I34.0 Nonrheumatic mitral (valve) insufficiency; I07.1 Rheumatic tricuspid insufficiency
CPT/HCPCS: 93306

== ENCOUNTER → 2022-05-10 13:04 | Outpatient (CLI) | payer MEDICARE, OTHER, SELFPAY ==
[2021-07-17 17:47] VITALS: BMI 34.0
--- NOTE | 2022-05-10 | DI.MG.S_ITS ---
BILATERAL DIGITAL SCREENING MAMMOGRAM 3D/2D WITH CAD: 05/10/2022 CLINICAL: Routine screening. Family history of breast cancer. Comparison is made to exams dated: 04/04/2021 mammogram, 02/29/2020 mammogram, and 12/19/2018 mammogram - [facility]. There are scattered areas of fibroglandular density in both breasts (category b / 25%-50% glandular tissue). Current study was also evaluated with a Computer Aided Detection (CAD) system. There are benign calcifications in both breasts. No significant masses, calcifications, or other findings are seen in either breast. There has been no significant interval change. IMPRESSION: BENIGN There is no mammographic evidence of malignancy. A 1 year screening mammogram is recommended. Based on the Tyrer Cuzick model (a risk assessment model) the patient's lifetime risk is 5.2% and her 10 year risk is 4.7%. According to the ACR, ACS, and NCCN guidelines, an annual breast MRI exam along with mammogram is recommended if the patient's lifetime risk is 20% or greater. This exam was interpreted at Station ID: [id number]. NOTE: For mammograms, a report in lay terms will be sent to the patient. Approximately 15% of breast malignancies will not be visualized mammographically. In the management of a palpable breast mass, a negative mammogram must not discourage biopsy of a clinically suspicious lesion. Electronically Signed By: Juan Carlos Mccain M.D., jr/kristopher:05/10/2022 13:56:14 letter sent: Normal Exam ACR BI-RADS Category 2: Benign Finding(s) 3342F
== END ==
PROVIDERS: PCP Family Medicine; Referring Provider Family Medicine; Visit Provider Family Medicine
DX: Z12.31 Encounter for screening mammogram for malignant neoplasm of breast (principal); Z80.3 Family history of malignant neoplasm of breast
CPT/HCPCS: 77063; 77067

== ENCOUNTER → 2022-06-04 10:44 | Outpatient (CLI) | payer MEDICARE, OTHER, SELFPAY ==
[2021-07-17 17:47] VITALS: BMI 34.0
[2022-06-04 13:00] LABS: Add Manual Diff / Slide Review NO; Basophils Absolute Auto 100 /uL (0-100); Basophils Percent Auto 1.3 % (0-2); Eosinophils Absolute Auto 300 /uL (0-450); Eosinophils Percent Auto 4.7 % (2-4); Hematocrit 32.8 % (36-46); Hemoglobin 10.1 g/dL (12.0-16.0); Lymphocytes Absolute Auto 1600 /uL (1100-4500); Lymphocytes Percent Auto 30.8 % (25-40); Mean Corpuscular HGB Conc 30.9 % (30-36); Mean Corpuscular Volume 77.6 fL (80-100); Monocytes Absolute Auto 800 /uL (0-900); Monocytes Percent Auto 14.9 % (3-14); Neutrophils Absolute Auto 2600 /uL (1500-7000); Neutrophils Percent Auto 48.3 % (50-75); Platelet Count 213 X10^3/uL (150-400); Red Blood Cell Count 4.22 X10^6/uL (4.0-5.2); White Blood Cell Count 5.3 X10^3/uL (4.5-11.0)
[2022-06-04 13:14] LABS: Alanine Aminotransferase 26 IU/L (<35); Albumin Globulin Ratio 1.2 (1.0-2.8); Alkaline Phosphatase 63 U/L (38-126); Aspartate Aminotransferase 42 IU/L (14-36); BUN Creatinine Ratio 25.9 (6-22); Bilirubin Total 0.7 mg/dL (0.2-1.3); Blood Urea Nitrogen 15 mg/dL (7-17); Calcium 9.1 mg/dL (8.4-10.2); Carbon Dioxide 27 mmol/L (22-32); Chloride 102 mmol/L (98-107); Cholesterol 104 mg/dL (140-199); Estimated Glomerular Filt Rate > 60 mL/min (>60); Globulin 3.3 g/dL (1.7-4.1); Glucose 93 mg/dL (80-110); HDL Cholesterol 35 mg/dL (40-60); HEMOLYSIS < 15 (0-50); LDL Cholesterol Calculated 53 mg/dL (<100); Magnesium 1.7 mg/dL (1.6-2.3); Potassium 3.7 mmol/L (3.4-5.1); Sodium 138 mmol/L (137-145); Total Protein 7.3 g/dL (6.3-8.2); Triglycerides 80 mg/dL (35-150)
[2022-06-04 13:41] LABS: Thyroid Stimulating Hormone 1.76 uIU/mL (0.47-4.68)
== END ==
PROVIDERS: PCP Family Medicine; Referring Provider Internal Medicine Cardiovascular Disease; Visit Provider Internal Medicine Cardiovascular Disease
DX: I10 Essential (primary) hypertension (principal); E78.5 Hyperlipidemia, unspecified; I48.0 Paroxysmal atrial fibrillation
CPT/HCPCS: 36415; 80053; 80061; 83735; 84443; 85025

== ENCOUNTER → 2022-07-24 15:43 | Outpatient (CLI) | payer MEDICARE, OTHER, SELFPAY ==
[2021-07-17 17:47] VITALS: BMI 34.0
[2022-07-24 17:14] LABS: Add Manual Diff / Slide Review NO; Basophils Absolute Auto 100 /uL (0-100); Basophils Percent Auto 1.1 % (0-2); Eosinophils Absolute Auto 200 /uL (0-450); Eosinophils Percent Auto 2.7 % (2-4); Hematocrit 32.5 % (36-46); Lymphocytes Absolute Auto 2000 /uL (1100-4500); Lymphocytes Percent Auto 35.9 % (25-40); Mean Corpuscular HGB Conc 30.8 % (30-36); Mean Corpuscular Hemoglobin 24.4 PG (26-34); Monocytes Absolute Auto 700 /uL (0-900); Monocytes Percent Auto 12.3 % (3-14); Neutrophils Absolute Auto 2700 /uL (1500-7000); Platelet Count 238 X10^3/uL (150-400); Red Blood Cell Count 4.11 X10^6/uL (4.0-5.2); Red Cell Distribution Width 17.5 % (11.6-14.8); White Blood Cell Count 5.5 X10^3/uL (4.5-11.0)
[2022-07-24 17:40] LABS: Iron 37 ug/dL (37-170)
[2022-07-24 17:48] LABS: Reticulocyte Count, Percent 1.4 % (1.1-2.6)
[2022-07-24 18:44] LABS: Folate 5.8 ng/mL (2.76-20.0); Vitamin B12 > 1000 pg/mL (239-931)
== END ==
PROVIDERS: PCP Family Medicine; Referring Provider Internal Medicine Cardiovascular Disease; Visit Provider Internal Medicine Cardiovascular Disease
DX: D50.9 Iron deficiency anemia, unspecified (principal)
CPT/HCPCS: 36415; 82607; 82746; 83540; 85025; 85045

== ENCOUNTER → 2022-07-30 13:24 | Outpatient (CLI) | payer MEDICARE, OTHER, SELFPAY ==
[2021-07-17 17:47] VITALS: BMI 34.0
[2022-07-30 20:34] LABS: Occult Blood 1 Negative (Negative); Occult Blood 2 Negative (Negative); Occult Blood 3 Negative (Negative)
== END ==
PROVIDERS: PCP Family Medicine; Referring Provider Internal Medicine Cardiovascular Disease; Visit Provider Internal Medicine Cardiovascular Disease
DX: D50.9 Iron deficiency anemia, unspecified (principal)
CPT/HCPCS: 82270

== ENCOUNTER → 2022-10-10 10:30 | Outpatient (CLI) | payer MEDICARE, OTHER, SELFPAY ==
[2021-07-17 17:47] VITALS: BMI 34.0
--- NOTE | 2022-10-10 10:39 | DI.DEXA.S_ITS ---
Indication: postmenopausal; screening for osteoporosis; Referring Provider: PATRICIO JAFFE Study: Bone densitometry was performed. Exam Date: October 10, 2022 Accession number: [id number] Bone Density: Region BMD T-score Z-score Classification AP Spine(L2, L3) 1.298 2.2 4.6 Normal Total Forearm (Left) 0.498 -1.5 0.9 Osteopenia 1/3 Forearm (Left) 0.578 -1.9 0.6 Osteopenia UD Forearm (Left) 0.386 -1.0 0.8 Normal World Health Organization criteria for BMD impression classify patients as: Normal (T-score at or above -1.0), Osteopenia (T-score between -1.0 and -2.5), or Osteoporosis (T-score at or below -2.5). Previous Exams: -- Region Exam Age BMD T-score BMD Change BMD Change Date g/cm2 vs Baseline vs Previous -- AP Spine (L2-L3) 10/10/2022 72 1.298 2.2 0.127 (10.9%)# 0.127 (10.9%)# 05/23/2020 70 1.171 1.0 -- *Denotes significance at 95% confidence level, LSC for AP Spine = 0.022 g/cm2 # Denotes dissimilar scan types or analysis methods Impression: The patient has normal bone mass. No significant bone loss was observed. Discussion: LOW RISK OF FRACTURE; BONE DENSITY IS WELL ABOVE THE MINIMUM DESIRABLE LEVEL AND ABOVE AVERAGE FOR AGE AND SEX AT ALL SKELETAL SITES TESTED. This person's bone density is above expected limits for age and sex. This is rarely clinically significant, but should be pursued if there are significant musculoskeletal complaints. The patient should follow a healthful lifestyle (good nutrition with adequate calcium and vitamin D, and appropriate weight-bearing exercise). Follow-Up: Consider repeating this study in 5 years or sooner if there is some new clinical indication. Reported by: JACKELINE BANUELOS M.D. on 10/10/2022 10:52:00 AM.
== END ==
PROVIDERS: PCP Family Medicine; Referring Provider Family Medicine; Visit Provider Family Medicine
DX: M81.0 Age-related osteoporosis without current pathological fracture (principal); Z13.820 Encounter for screening for osteoporosis; Z78.0 Asymptomatic menopausal state; Z79.83 Long term (current) use of bisphosphonates
CPT/HCPCS: 77080

== ENCOUNTER → 2023-08-19 08:49 | Outpatient (CLI) | payer MEDICARE, OTHER, SELFPAY ==
[2021-07-17 17:47] VITALS: BMI 34.0
--- NOTE | 2023-08-19 08:51 | DI.US.S_ITS ---
LIMITED ULTRASOUND OF LEFT BREAST AND AXILLA: 08/19/2023 CLINICAL: Palpable left breast lump. Comparison is made to exams dated: 08/19/2023 mammogram, 05/10/2022 mammogram, 04/04/2021 mammogram, and 02/29/2020 mammogram - [facility]. Color flow ultrasound of the left breast axilla was performed on the areas of interest. Johnson scale images of the real-time examination were reviewed. IMPRESSION: NEGATIVE There is no sonographic evidence of malignancy. There is no mammographic or sonographic abnormality seen in the left breast to correspond with the palpable abnormality, however, clinical followup is recommended. Return to annual mammogram screening schedule is recommended. This exam was interpreted at Station ID: [id number]. Electronically Signed By: Skye espinosa/kristopher:08/19/2023 15:00:07 letter sent: Normal Exam Ultrasound BI-RADS: 1 Negative
--- NOTE | 2023-08-19 08:51 | DI.MG.S_ITS ---
BILATERAL DIGITAL DIAGNOSTIC MAMMOGRAM 3D/2D: 08/19/2023 CLINICAL: Left breast lump. Comparison is made to exams dated: 05/10/2022 mammogram, 04/04/2021 mammogram, and 02/29/2020 mammogram - [facility]. There are scattered areas of fibroglandular density in both breasts (category b / 25%-50% glandular tissue). No significant masses, calcifications, or other findings are seen in either breast. IMPRESSION: INCOMPLETE: NEEDS ADDITIONAL IMAGING EVALUATION There is no mammographic abnormality seen in the left breast to correspond with the palpable abnormality, however, targeted ultrasound of the left breast is recommended and will be performed immediately following this exam. Based on the Tyrer Cuzick model (a risk assessment model) the patient's lifetime risk is 4.8% and her 10 year risk is 4.8%. According to the ACR, ACS, and NCCN guidelines, an annual breast MRI exam along with mammogram is recommended if the patient's lifetime risk is 20% or greater. This exam was interpreted at Station ID: [id number]. NOTE: For mammograms, a report in lay terms will be sent to the patient. Approximately 15% of breast malignancies will not be visualized mammographically. In the management of a palpable breast mass, a negative mammogram must not discourage biopsy of a clinically suspicious lesion. Electronically Signed By: Skye Carlin M.D. /:08/19/2023 09:35:52 ACR BI-RADS Category 0: Incomplete [id number]
== END ==
LOC: MAMMO 08:50
PROVIDERS: PCP Family Medicine; Referring Provider Family Medicine; Visit Provider Family Medicine
DX: R92.2 Inconclusive mammogram; N63.20 Unspecified lump in the left breast, unspecified quadrant; R92.323 Mammographic fibroglandular density, bilateral breasts
CPT/HCPCS: 76642; 77066; G0279

== ENCOUNTER → 2023-10-23 16:20 | Outpatient (CLI) | payer MEDICARE, OTHER, SELFPAY ==
[2021-07-17 17:47] VITALS: BMI 34.0
[2023-10-23 20:33] LABS: Appearance Urine UA CLEAR; Bilirubin Urine UA NEGATIVE (NEGATIVE); Color Urine UA YELLOW; Glucose Urine UA NEGATIVE (Negative); Ketones Urine UA NEGATIVE (NEGATIVE); Leukocyte Esterase Urine UA NEGATIVE (NEGATIVE); Nitrite Urine UA NEGATIVE (Negative); Occult Blood Urine UA NEGATIVE (Negative); Protein Urine UA NEGATIVE (Negative); Specific Gravity Urine UA >=1.030 (1.000-1.035); Urobilinogen Urine UA 0.2 E.U./dL (0.2)
[2023-10-23 20:44] LABS: Bacteria Urine Occasional (0-1); Culture Indicated Urine Cult Not Indicated; RBC Urine None Seen (0-5/HPF); Squamous Epithelial Cell Urine 1-5 /HPF (0-5/HPF); Urine Volume 10mL (spun); WBC Urine 0-1/HPF (0-5/HPF)
== END ==
PROVIDERS: PCP Family Medicine; Visit Provider Physician Assistant
DX: R31.9 Hematuria, unspecified (principal)
CPT/HCPCS: 81001

== ENCOUNTER → 2023-10-31 10:19 | Outpatient (CLI) | payer MEDICARE, OTHER, SELFPAY ==
[2021-07-17 17:47] VITALS: BMI 34.0
[2023-10-31 11:05] LABS: Add Manual Diff / Slide Review NO; Basophils Absolute Auto 100 /uL (0-100); Basophils Percent Auto 1.1 % (0-2); Eosinophils Absolute Auto 100 /uL (0-450); Eosinophils Percent Auto 2.8 % (2-4); Hemoglobin 13.4 g/dL (12.0-16.0); Lymphocytes Absolute Auto 1800 /uL (1100-4500); Lymphocytes Percent Auto 34.2 % (25-40); Mean Corpuscular HGB Conc 33.5 % (30-36); Mean Corpuscular Hemoglobin 31.8 PG (26-34); Mean Corpuscular Volume 94.8 fL (80-100); Monocytes Absolute Auto 600 /uL (0-900); Monocytes Percent Auto 11.4 % (3-14); Neutrophils Absolute Auto 2600 /uL (1500-7000); Neutrophils Percent Auto 50.5 % (50-75); Platelet Count 216 X10^3/uL (150-400); Red Blood Cell Count 4.21 X10^6/uL (4.0-5.2); Red Cell Distribution Width 13.4 % (11.6-14.8); White Blood Cell Count 5.2 X10^3/uL (4.5-11.0)
[2023-10-31 11:33] LABS: BUN Creatinine Ratio 24.2 (6-22); Blood Urea Nitrogen 15 mg/dL (7-17); Calcium 9.7 mg/dL (8.4-10.2); Carbon Dioxide 31 mmol/L (22-32); Chloride 104 mmol/L (98-107); Estimated Glomerular Filt Rate > 60 mL/min (>60); Glucose 88 mg/dL (80-110); HEMOLYSIS < 15 (0-50); Magnesium 2.1 mg/dL (1.6-2.3); Sodium 138 mmol/L (137-145)
[2023-10-31 11:59] LABS: Thyroid Stimulating Hormone 1.51 uIU/mL (0.47-4.68)
== END ==
LOC: LAB 10:21
PROVIDERS: PCP Family Medicine; Referring Provider Internal Medicine Cardiovascular Disease; Visit Provider Internal Medicine Cardiovascular Disease
DX: I48.0 Paroxysmal atrial fibrillation (principal); I10 Essential (primary) hypertension
CPT/HCPCS: 36415; 80048; 83735; 84443; 85025

== ENCOUNTER → 2024-03-05 14:09 | Outpatient (CLI) | payer MEDICARE, OTHER, SELFPAY ==
[2021-07-17 17:47] VITALS: BMI 34.0
--- NOTE | 2024-03-05 14:10 | DI.RAD.S_ITS ---
PROCEDURE: XR DEXA AXIAL SKELETON INDICATIONS: OSTEOPENIA/IDIOPATHIC SCOLIOSIS COMPARISON: [facility], , XR DEXA AXIAL SKELETON, 10/10/2022, 10:39. [facility], , XR DEXA AXIAL SKELETON, 05/23/2020, 10:20. FINDINGS: Lumbar Spine: Bone mineral density 1.275 g/cm2, T score 2.0, no statistically significant change compared to prior. Left Forearm: Bone mineral density 0.561 g/cm2, T score -2.2, no statistically significant change compared to prior. (T score greater or equal to -1.0 to: NORMAL) (T score from -1.1 to -2.4: OSTEOPENIA) (T score less than or equal to -2.5: OSTEOPOROSIS) IMPRESSION: Low bone mineral density (osteopenia) by WHO classification. Follow-up guidelines as follows: Osteoporosis: Consider a repeat DEXA and Vertebral Fracture Assessment (VFA) exam in 2 years or sooner if medically necessary, to reassess this patient's status. Osteopenia: Consider a repeat DEXA in 2-3 years to reassess this patient's status, or if there is a new clinical indication. Normal: Consider a repeat DEXA in 5 years or sooner, or if there is a new clinical indication. All treatment decisions require clinical judgment and consideration of individual patient factors, including patient preferences, comorbidities, previous drug use, risk factors not captured in the FRAX model (e.g., frailty, falls, vitamin D deficiency, increased bone turnover, interval significant decline in bone density ) and possible under- or over-estimation of fracture risk by FRAX. In addition, the NOF Guide recommends that FDA-approved medical therapies be considered in postmenopausal women and men age >= 50 years with a: * Hip or vertebral (clinical or morphometric) fracture * T-score of <=-2.5 at the spine or hip * Ten-year fracture probability by FRAX of >= 3% for hip fracture or >=20% for major osteoporotic fracture. People with diagnosed cases of osteoporosis or at high risk for fracture should have regular bone mineral density tests. For patients eligible for Medicare, routine testing is allowed once every 2 years. The testing frequency can be increased to one year for patients who have rapidly progressing disease, those who are receiving or discontinuing medical therapy to restore bone mass, or have additional risk factors. Dictated by: Titi Bran M.D. on 03/06/2024 at 16:54 Approved by: Titi Bran M.D. on 03/06/2024 at 16:55
== END ==
LOC: RAD 14:10
PROVIDERS: PCP Family Medicine; Referring Provider Family Medicine; Visit Provider Family Medicine
DX: M85.89 Other specified disorders of bone density and structure, multiple sites (principal); M41.26 Other idiopathic scoliosis, lumbar region
CPT/HCPCS: 77080; 77081

== ENCOUNTER → 2024-08-29 14:04 | Outpatient (CLI) | payer MEDICARE, OTHER, SELFPAY ==
[2021-07-17 17:47] VITALS: BMI 34.0
--- NOTE | 2024-08-29 14:06 | DI.MG.S_ITS ---
BILATERAL DIGITAL SCREENING MAMMOGRAM 3D/2D WITH CAD: 08/29/2024 CLINICAL: Routine screening. Family history of breast cancer. Comparison is made to exams dated: 08/19/2023 mammogram, 05/10/2022 mammogram, 04/04/2021 mammogram, 10/27/2014 mammogram, and 11/30/2015 mammogram - [facility]. There are scattered areas of fibroglandular density (category b / 25%-50% glandular tissue). Current study was also evaluated with a Computer Aided Detection (CAD) system. No significant masses, calcifications, or other findings are seen in either breast. There has been no significant interval change. IMPRESSION: NEGATIVE There is no mammographic evidence of malignancy. A 1 year screening mammogram is recommended. Based on the Tyrer Cuzick model (a risk assessment model) the patient's lifetime risk is 4.4% and her 10 year risk is 0.0%. According to the ACR, ACS, and NCCN guidelines, an annual breast MRI exam along with mammogram is recommended if the patient's lifetime risk is 20% or greater. This exam was interpreted at Station ID: [id number]. NOTE: For mammograms, a report in lay terms will be sent to the patient. Approximately 15% of breast malignancies will not be visualized mammographically. In the management of a palpable breast mass, a negative mammogram must not discourage biopsy of a clinically suspicious lesion. Electronically Signed By: Isrrael schwartz/kristopher:08/31/2024 07:39:47 letter sent: Normal Exam ACR BI-RADS Category 1: Negative
== END ==
PROVIDERS: PCP Family Medicine; Referring Provider Family Medicine; Visit Provider Family Medicine
DX: Z12.31 Encounter for screening mammogram for malignant neoplasm of breast (principal); Z80.3 Family history of malignant neoplasm of breast
CPT/HCPCS: 77063; 77067

== ENCOUNTER → 2024-09-09 07:26 | Outpatient (CLI) | payer MEDICARE, OTHER, SELFPAY ==
[2021-07-17 17:47] VITALS: BMI 34.0
--- NOTE | 2024-09-09 07:28 | DI.US.S_ITS ---
PROCEDURE: US PELVIC COMPLETE INDICATIONS: ABNORMAL VAGINAL BLEEDING IN PM PATIENT TECHNIQUE: Real-time scanning was performed of the pelvic organs, with image documentation. Additional endovaginal scanning was necessary due to incomplete visualization of the adnexal and endometrial structures by transabdominal scanning. COMPARISON: None. FINDINGS: Uterus: 6.8 x 2.7 x 4 cm. Endometrium measures 2 mm. Homogeneous echotexture. Ovaries: Not seen Other: No pathologic free abdominal or pelvic fluid. IMPRESSION: Nonthickened endometrium, measuring 2 mm. Dictated by: Alfonso Lowe M.D. on 09/09/2024 at 16:07 Approved by: Alfonso Lowe M.D. on 09/09/2024 at 16:07
== END ==
PROVIDERS: PCP Family Medicine; Referring Provider Family Medicine; Visit Provider Family Medicine
DX: N95.0 Postmenopausal bleeding (principal)
CPT/HCPCS: 76830; 76856

== ENCOUNTER → 2025-04-16 19:31 | Outpatient (CLI) | payer MEDICARE, OTHER, SELFPAY ==
[2021-07-17 17:47] VITALS: BMI 34.0
--- NOTE | 2025-04-16 19:35 | DI.MRI.S_ITS ---
PROCEDURE: MR LUMBAR SPINE WO CON INDICATIONS: pain TECHNIQUE: Noncontrast sagittal T1 spin echo and T2 fast echo, coronal T2, sagittal STIR, and T2 fast spin echo through the lumbar spine. COMPARISON: [facility], , MR LUMBAR SPINE WO CON, 03/19/2020, 11:51. FINDINGS: Image quality: Excellent. Alignment and Curvature: 5 lumbar type vertebral bodies are present by plain film. Moderate diffuse leftward curvature of the upper lumbar spine. Loss of normal lumbar lordosis. Bone Marrow: Marrow is of normal overall signal. No acute vertebral body compression fractures. Moderate reactive signal within the endplates adjacent to the L1-L2 intervertebral disc. Mild reactive signal within the remaining lumbar and lower thoracic endplates. Metallic artifact projects over the posterior elements at L5. Spinal Cord: Conus medullaris terminates at the mid L2 level. Visualized cord demonstrates normal signal and size. Paraspinous Soft Tissues: No paravertebral masses. T12-L1: Moderate disc height loss and desiccation. Mild diffuse disc bulge/osteophyte. Mild facet and ligamentum flavum hypertrophy. Mild canal stenosis. Moderate right and mild left foraminal stenosis. No significant change. L1-L2: Moderate disc height loss and desiccation. Mild diffuse disc bulge with superimposed broad-based right far lateral protrusion/osteophyte. Mild facet and ligamentum flavum hypertrophy. Mild epidural lipomatosis. Mild canal stenosis. Increased, moderate right foraminal stenosis. No change in mild left foraminal stenosis. L2-L3: Moderate disc height loss and desiccation. Mild diffuse disc bulge/osteophyte with superimposed right far lateral protrusion/osteophyte. Mild facet and ligamentum flavum hypertrophy. Mild canal stenosis. Moderate left and mild right foraminal stenosis. No significant change. L3-L4: Moderate disc height loss and desiccation. Mild diffuse disc bulge. Mild facet and ligamentum flavum hypertrophy. Mild epidural lipomatosis. Mild canal stenosis. Mild bilateral foraminal stenosis. No significant change. L4-L5: Moderate disc height loss and desiccation. Moderate facet and ligamentum flavum hypertrophy. Decreased, mild canal stenosis. No change in moderate left foraminal stenosis. Increased, moderate to severe right foraminal stenosis with right L4 nerve root compression. L5-S1: Moderate disc desiccation. Mild diffuse disc bulge. Mild bilateral facet hypertrophy. Mild canal stenosis. Increased, moderate to severe left foraminal stenosis with associated left L5 nerve root compression. No change in moderate right foraminal stenosis. IMPRESSION: 1. Multilevel degenerative disc and facet disease, as well as ligamentum flavum hypertrophy and epidural lipomatosis. 2. Postsurgical sequelae. 3. Multilevel mild canal stenoses. 4. Multilevel foraminal stenoses, worst at L4-L5 and L5-S1 where there is associated intraforaminal nerve root compression. Recommend correlation with clinical symptoms to ascertain relevance of these findings. Dictated by: Lesley Barrera M.D. on 04/19/2025 at 12:26 Approved by: Lesley Barrera M.D. on 04/19/2025 at 12:33
== END ==
LOC: MRI 19:33
PROVIDERS: PCP Family Medicine; Referring Provider Family Medicine; Visit Provider Family Medicine
DX: M41.26 Other idiopathic scoliosis, lumbar region (principal); M51.369 Other intervertebral disc degeneration, lumbar region without mention of lumbar back pain or lower extremity pain; M51.379 Other intervertebral disc degeneration, lumbosacral region without mention of lumbar back pain or lower extremity pain; M47.816 Spondylosis without myelopathy or radiculopathy, lumbar region; M47.817 Spondylosis without myelopathy or radiculopathy, lumbosacral region; M48.061 Spinal stenosis, lumbar region without neurogenic claudication; M48.07 Spinal stenosis, lumbosacral region
CPT/HCPCS: 72148

== ENCOUNTER → 2025-05-03 09:49 | Outpatient (CLI) | payer MEDICARE, OTHER, SELFPAY ==
[2021-07-17 17:47] VITALS: BMI 34.0
[2025-05-03 11:32] LABS: Cholesterol 129 mg/dL (140-199); HDL Cholesterol 60 mg/dL (40-60); Triglycerides 64 mg/dL (35-150)
== END ==
PROVIDERS: PCP Family Medicine; Referring Provider Family Medicine; Visit Provider Internal Medicine Cardiovascular Disease
DX: E78.5 Hyperlipidemia, unspecified (principal)
CPT/HCPCS: 36415; 80061

== ENCOUNTER → 2025-05-04 11:55 | Outpatient (CLI) | payer MEDICARE, OTHER, SELFPAY ==
[2021-07-17 17:47] VITALS: BMI 34.0
--- NOTE | 2025-05-04 11:56 | DI.US.S_ITS ---
PROCEDURE: US PERIPH VENOUS LOW EXTREM RT INDICATIONS: Calf pain TECHNIQUE: Real-time imaging, as well as color and pulse Doppler interrogation, were performed of the lower extremity deep veins from the inguinal ligament to the popliteal fossa, with documentation of the visualized calf veins. Twelve images. COMPARISON: None. FINDINGS: The common femoral, femoral, popliteal, and the visualized calf veins are normally compressible, and free of intraluminal thrombus. Color and pulse Doppler demonstrate normal phasic intraluminal flow. There is normal augmentation response to distal compression maneuver. IMPRESSION: No ultrasound evidence of deep vein thrombosis right lower extremity. Dictated by: Yoav Allen M.D. on 05/04/2025 at 12:38 Approved by: Yoav Allen M.D. on 05/04/2025 at 12:38
== END ==
LOC: US 11:56
PROVIDERS: PCP Family Medicine; Referring Provider Nurse Practitioner Family; Visit Provider Nurse Practitioner Family
DX: M79.661 Pain in right lower leg (principal)
CPT/HCPCS: 93971

== ENCOUNTER → 2025-05-06 09:19 | Outpatient (CLI) | payer MEDICARE, OTHER, SELFPAY ==
[2021-07-17 17:47] VITALS: BMI 34.0
--- NOTE | 2025-05-10 22:15 | DI.NM.S_ITS ---
DATE OF SERVICE: 05/06/2025 NUCLEAR CARDIOLOGY MYOCARDIAL PERFUSION STUDY PROCEDURE PERFORMED: Exercise treadmill stress and rest myocardial perfusion imaging with gating to assess ejection fraction and regional wall motion. ORDERING PROVIDER: Malka Baumann MD. INDICATIONS: The patient is a 75-year-old female with recently documented significant coronary artery calcification. CARDIAC STRESS: 1. The patient was able to exercise for 4 minutes 42 seconds on a standard [place] protocol suggesting mildly reduced exercise capacity with an RACHEL of +7%, achieving 7.0 METS. 2. She had a moderately accelerated heart rate response to exercise, possibly due to atrial arrhythmias, with a maximum heart rate of 184 bpm (129% of her predicted maximum). She had a borderline hypertensive blood pressure response with a resting blood pressure of 140/92 that increased to a maximum of 190/100. 3. She had moderate exertional dyspnea but no chest discomfort. Her resting ECG shows sinus rhythm with normal ST segments. With stress, there is significant motion artifact that precludes ST and arrhythmia analysis, but the early recovery tracings show no significant ST-segment shifts with frequent PACs, often consecutively in short bursts of probable ectopic atrial tachycardia that improves in recovery but with continued frequent PACs, rarely in couplets. 4. At 3 minutes 40 seconds of exercise at a heart rate of 160 bpm, 27.2 millicuries of technetium-99m Myoview was injected and she was imaged 15 minutes later using a gated SPECT acquisition protocol. She returned the following day and was injected with an additional 26.4 mCi of technetium-99m Myoview and imaged 15 minutes later, again using a gated acquisition protocol. FINDINGS: 1. Raw data. There is fairly good myocardial tracer uptake but breast shadows are noted, particularly on the stress images. While the lung/heart ratio is borderline elevated at 0.42, this is not visually apparent and clinical correlation is recommended. The TID ratio is normal at 0.86. 2. Quantitated gated SPECT: The post-stress ejection fraction is 80% without any focal abnormality and specifically the lateral wall has normal contractility. The resting ejection fraction is 76% with a normal resting end-diastolic volume of 71 mL. 3. Myocardial perfusion imaging: Post-stress supine images show an extremely subtle defect in the mid lateral wall, sparing the distal lateral wall. Unfortunately, there are no prone images to assess for attenuation artifact. The resting images show a more uniform pattern of tracer activity with improvement in the lateral wall, although this remains nonspecific because of the subtlety of the abnormality. IMPRESSION: 1. Probable normal myocardial perfusion study. 2. Extremely subtle, but reversible perfusion defect in the mid lateral wall that may reflect attenuation artifact although a small volume of ischemia cannot be entirely excluded. Yet, given the subtlety and small area involved, this is a low risk test. Clinical correlation is recommended. 3. Normal left ventricular size and systolic function without any focal wall motion abnormality. 4. Mildly reduced exercise capacity without angina or apparent ECG evidence of ischemia. She had frequent supraventricular ectopy with short bursts of atrial tachycardia at peak exercise and in early recovery that improves but continued frequent PACs, rarely in couplets, in late recovery but no concerning arrhythmia. Celsa Flores - MILA/sigifredo/LEVI doc#: [id number]/job#: [id number] dd: 05/10/2025 16:54:00 dt: 05/10/2025 22:00:00 DICTATING MD/COPIES TO: Sorin Hairston MD; Malka Baumann MD COPIES MNE: RICHARD;
== END ==
LOC: NUCM 09:19
PROVIDERS: PCP Family Medicine; Referring Provider Internal Medicine Cardiovascular Disease; Visit Provider Internal Medicine Cardiovascular Disease
DX: I25.10 Atherosclerotic heart disease of native coronary artery without angina pectoris (principal)
CPT/HCPCS: 78452; 93017; A9502